=== PATIENT | female | born 1975 | race Caucasian/White ===

== ENCOUNTER → 2017-10-09 | Outpatient (CLI) | payer SELFPAY ==
[2017-10-09 13:02] LABS: Basophils % (A) 1 %; Eosinophils # (A) 0.1 k/uL (0-0.7); Eosinophils % (A) 2 %; HCT 43.9 % (34.0-46.0); HGB 14.3 gm/dL (11.4-16.0); Lymphocytes % (A) 27 %; MCH 30.5 pg (25.0-35.0); MCHC 32.7 g/dL (31.0-37.0); MCV 93.2 fL (80.0-100.0); Mean Platelet Volume 7.3; Monocytes # (A) 0.4 k/uL (0-1.0); Monocytes % (A) 5 %; Neutrophils # (A) 4.7 k/uL (1.3-7.7); Neutrophils % (A) 64 %; Platelet Count 348 k/uL (150-450); RBC 4.71 m/uL (3.80-5.40); RDW 14.1 % (11.5-15.5); WBC 7.3 k/uL (3.8-10.6)
== END | disposition home or self-care (01) ==
LOC: LABPAT 12:40
PROVIDERS: ATTEND Orthopaedic Surgery
DX: Z01.812 Encounter for preprocedural laboratory examination (principal); M75.41 Impingement syndrome of right shoulder
CPT/HCPCS: 36415; 85025

== ENCOUNTER → 2017-10-16 | Day surgery (SDC) | payer OTHER ==
[2017-10-07 14:45] VITALS: BMI 27.3
--- NOTE | 2017-10-15 14:49 | HP ---
HISTORY AND PHYSICAL DATE OF SERVICE: 10/16/2017 Adelia Cedillo is a 42-year-old patient seen with progressive right shoulder pain. Treatment options were discussed. She elected to proceed with right shoulder arthroscopy. Consent was obtained. PAST MEDICAL HISTORY: Depression. PAST SURGICAL HISTORY: Left knee arthroscopy, left shoulder arthroscopy, tubal ligation. DAILY MEDICATIONS: Ibuprofen. ALLERGIES: None reported. SOCIAL HISTORY: Patient denies current tobacco use. PHYSICAL EVALUATION RIGHT SHOULDER: Flexion 100 degrees, abduction is 90 degrees, external rotation is 35 degrees with some pain and weakness. Tenderness along the anterior lateral acromion and rotator cuff insertion site. Impingement sign positive at 90 degrees. Drop-arm sign is positive. Distal neurovascular exam is intact. X-RAYS OF THE RIGHT SHOULDER: Revealed a type 2 anterior acromion. MRI right shoulder revealed impingement with rotator cuff tear. IMPRESSION: Right shoulder impingement with rotator cuff tear. PLAN: Right shoulder arthroscopy with subacromial decompression, probable arthroscopic rotator cuff repair and debridement. MMODL / IJN: [id number] /
[~2017-10-16] MED LIST: DEXAMETHASONE SOD PHOSPHATE 10 MG/ML 1 ML VIAL IV ONE; FAMOTIDINE 20 MG/2 ML VIAL IV PRN; HYDROmorphone 0.5 MG/0.5 ML SYRINGE IVP PRN; KETAMINE 10 MG/ML 20 ML VIAL ONE; LACTATED RINGERS 1,000 ML IV SCH; LIDOCAINE 1% 20 ML VIAL (10MG/ML) FOR IV START INTRADERMA ONE; LIDOCAINE 1% 20 ML VIAL (10MG/ML) FOR IV START INTRADERMA PRN; LIDOCAINE 1% INJ 10MG/ML (20 ML MDV) ONE; LIDOCAINE 2%-EPI 1:100,000 20 ML VIAL ONE; MIDAZOLAM 2 MG/2 ML VIAL IV PRN; ONDANSETRON 4 MG/2 ML VIAL IVP ONE; PROPOFOL 10 MG/ML 20 ML VIAL IV ONE; ROCURONIUM BROMIDE 10 MG/ML 10 ML VIAL IV ONE; ROPIVACAINE 5 MG/ML 30 ML VIAL ONE; SCOPOLAMINE 1.5MG/72HR PATCH TRANSDERM ONE; SUCCINYLCHOLINE CHLORIDE 100 MG/5 ML SYR IV ONE; ceFAZolin IN SWFI 2 GM/20 ML SYRINGE IVP ONE; fentaNYL (PF) 50 MCG/ML 2 ML AMP IVP ONE; fentaNYL (PF) 50 MCG/ML 2 ML AMP ONE
--- NOTE | 2017-10-16 08:55 | P.ONQ ---
Anesthesiology Proc Note - PNB - Peripheral Nerve Block Performed Right Interscalene Single Time Out Performed: Yes (8:43) Procedure Start Time: 08:44 Procedure Stop Time: :55 Indication: Acute Post-Operative Pain, Requested by physician Sedation Type: Sedate with meaningful contact maintained Preparation: Sterile Prep Position: Supine Catheter: None Needle Types: Facet Needle Size: 50mm (2") Needle Gauge: 20 Technique: Ultrasound Injectate: 0.5% Ropivacaine (see comment for volume) (30 mls) Blood Aspirated: No Pain Paresthesia on Injection Noted: No Resistance on Injection: Normal Events: Uneventful and Well Tolerated
[2017-10-16 10:58] VITALS: TEMP 97.8
--- NOTE | 2017-10-16 11:02 | P.OP ---
Date of Procedure: 10/16/17 Preoperative Diagnosis: Right shoulder impingement Postoperative Diagnosis: 1. Right shoulder rotator cuff tear 2. Right shoulder impingement 3. Right shoulder superficial labral tear Procedure(s) Performed: 1. Right shoulder arthroscopic rotator cuff repair 2. Right shoulder arthroscopic subacromial decompression 3. Right shoulder arthroscopic debridement labral tear Implants: 2-5.5 peek anchors Anesthesia: GETA, regional (Interscalene block) Surgeon: Dwain Samuel Research Technician #1: Ray Cool Estimated Blood Loss (ml): 15 Pathology: none sent Condition: stable Disposition: PACU Indications for Procedure: 42-year-old patient seen with progressive right shoulder pain. After having treatment options discussed, she elected to proceed with arthroscopy. Operative Findings: See description of procedure Description of Procedure: Patient underwent a shoulder block by department of anesthesia. The patient was then taken to the operative suite. The patient underwent a general anesthetic by the department of anesthesia. The patient was placed into a lateral position and secured. There was appropriate padding of the bony prominence. Right shoulder was then prepped and draped in normal sterile orthopedic fashion. We placed the extremity in 10 pounds of longitudinal traction. A posterior incision was now made for a posterior working portal site. The trocar and cannula were inserted into the glenohumeral joint. Arthroscopy was initiated. Spinal needle was now inserted anteriorly, to ascertain the anterior working portal site. An incision was now made in that area, a trocar was inserted followed by a probe. There was superficial tearing of the anterior labrum. The superior posterior and inferior labrum were intact. There was some grade 1 chondromalacia changes central portion glenoid. Biceps is unremarkable. I did seen obvious through and through rotator cuff tear noted at the midportion distal supraspinatus. I debrided that labral tear down to stable tissue. The residual labrum was probed and found to be stable. Instruments now removed from glenohumeral joint. Utilizing the posterior working portal site, the trocar and cannula were inserted into the subacromial space. Arthroscopy initiated. I made an incision 2 fingerbreadths lateral to the acromion. I introduced my trocar followed by my ArthroCare ablator. I now began ablating thick subacromial bursal tissue, which exposed the undersurface of the anterior acromion. This was diminished subacromial space. There was a very prominent anterior acromion. A motorized bur was introduced and a subacromial decompression was performed. I also excised some osteophytes off the inferior aspect of the distal clavicle. The AC joint was visualized and noted to be mildly arthritic. I turned my attention to the rotator cuff tendon tear. I debrided the margins down to stable tissue. The tear was about 1.5 cm freely mobile over the footprint. I abraded the footprint with a motorized bur. I passed 4 everted mattress sutures. No sutures were crisscrossed and a pull the tendon over the footprint inserting 2 anchors laterally compressing the tendon along the footprint very nicely. He residual suture limbs were clipped. I injected 1 mL of UCT intra-articular. Instruments now removed from the portal sites. All portal sites were approximated with nylon suture. Sterile dressings were applied followed by a shoulder immobilizer. Power SANDOVAL assisted with the procedure. The patient was awakened, transferred to a bed, and taken to recovery in stable condition.
[2017-10-16 12:05] VITALS: PULSE 67; RESP 18
[2017-10-16 12:33] VITALS: BP 117/65
== END | disposition home or self-care (01) ==
LOC: OR 07:52
PROVIDERS: ATTEND Orthopaedic Surgery
DX: M75.101 Unspecified rotator cuff tear or rupture of right shoulder, not specified as traumatic (principal); M75.41 Impingement syndrome of right shoulder; S43.401A Unspecified sprain of right shoulder joint, initial encounter; X58.XXXA Exposure to other specified factors, initial encounter; M94.211 Chondromalacia, right shoulder; M19.011 Primary osteoarthritis, right shoulder; M25.711 Osteophyte, right shoulder; F32.9 Major depressive disorder, single episode, unspecified; Z98.51 Tubal ligation status; Z79.1 Long term (current) use of non-steroidal anti-inflammatories (NSAID); Z79.891 Long term (current) use of opiate analgesic
CPT/HCPCS: 64415; 81025; 29827; 29826; C1713; C1765; J2250; J1100; J0690; J2405; J2001; J3010; J2795; J0330; J2704

== ENCOUNTER 2018-02-09 08:21 | Day surgery (SDC) | payer OTHER ==
[2018-02-04 13:56] VITALS: BMI 28.8
--- NOTE | 2018-02-08 09:29 | HP ---
HISTORY AND PHYSICAL DATE OF SERVICE: Surgery scheduled for 02/09/2018 HISTORY OF PRESENT ILLNESS: Adelia Cedillo is a 42-year-old patient seen with right shoulder stiffness/adhesive capsulitis after previously having undergone arthroscopic rotator cuff repair. We discussed options. She elected to proceed with manipulation under anesthesia right shoulder with steroid injection. Consent regarding procedure was obtained. PAST MEDICAL HISTORY: Depression. PAST SURGICAL HISTORY: Right shoulder arthroscopic rotator cuff repair, left knee arthroscopy, tubal ligation. DAILY MEDICATIONS: Ibuprofen. ALLERGIES: None reported. SOCIAL HISTORY: Patient denies tobacco use. PHYSICAL EXAMINATION: Physical evaluation right shoulder arthroscopic portal sites appear well healed. Flexion 100 degrees, abduction 90 degrees, external rotation 20 degrees. Distal neurovascular exam is intact. RADIOGRAPHS: Radiographs of the right shoulder revealed a conversion to a flat anterior acromion. IMPRESSION: 1. Right shoulder adhesive capsulitis. 2. History of right shoulder arthroscopic rotator cuff repair. PLAN: Right shoulder manipulation under anesthesia with steroid injection. Surgery scheduled for 02/09/2018. MMODL / IJN: [id number] /
[~2018-02-09 08:21] MED LIST changes: -FAMOTIDINE 20 MG/2 ML VIAL IV PRN; -HYDROmorphone 0.5 MG/0.5 ML SYRINGE IVP PRN; -KETAMINE 10 MG/ML 20 ML VIAL ONE; -LIDOCAINE 1% 20 ML VIAL (10MG/ML) FOR IV START INTRADERMA ONE; -LIDOCAINE 1% 20 ML VIAL (10MG/ML) FOR IV START INTRADERMA PRN; -LIDOCAINE 1% INJ 10MG/ML (20 ML MDV) ONE; -LIDOCAINE 2%-EPI 1:100,000 20 ML VIAL ONE; -PROPOFOL 10 MG/ML 20 ML VIAL IV ONE; -ROCURONIUM BROMIDE 10 MG/ML 10 ML VIAL IV ONE; -ROPIVACAINE 5 MG/ML 30 ML VIAL ONE; -SUCCINYLCHOLINE CHLORIDE 100 MG/5 ML SYR IV ONE; +fentaNYL (PF) 50 MCG/ML 2 ML AMP IV PRN; -fentaNYL (PF) 50 MCG/ML 2 ML AMP IVP ONE; -fentaNYL (PF) 50 MCG/ML 2 ML AMP ONE
[2018-02-09] MEDS ORDERED: LIDOCAINE 1% 20 ML VIAL (10MG/ML) FOR IV START INTRADERMA ONE (09:00)
[2018-02-09 09:33] VITALS: TEMP 98
[2018-02-09] MEDS ORDERED: PROPOFOL 10 MG/ML 20 ML VIAL IV ONE (09:51)
[2018-02-09] MEDS ORDERED: KETOROLAC 30 MG/ML 1 ML VIAL ONE (09:51)
[2018-02-09] MEDS ORDERED: fentaNYL (PF) 50 MCG/ML 2 ML AMP ONE (09:51)
[2018-02-09] MEDS ORDERED: methylPREDNISolone ACETATE 80 MG/ML 1 ML VIAL INTRAARTIC ONE (10:08)
[2018-02-09] MEDS ORDERED: BUPIVACAINE (PF) 0.25% 30 ML VIAL INTRAARTIC ONE (10:08)
--- NOTE | 2018-02-09 10:12 | P.OP ---
Date of Procedure: 02/09/18 Preoperative Diagnosis: Right shoulder adhesive capsulitis Postoperative Diagnosis: Right shoulder adhesive capsulitis Procedure(s) Performed: Right shoulder manipulation under anesthesia with steroid injection Anesthesia: MAC Surgeon: Dwain Samuel Estimated Blood Loss (ml): 0 Pathology: none sent Condition: stable Disposition: PACU Indications for Procedure: 42-year-old patient seen with right shoulder adhesive capsulitis after previously having undergone arthroscopy. After treatment options were discussed , she elected to proceed with manipulation under anesthesia with steroid injection. Operative Findings: See description of procedure Description of Procedure: Patient was taken to a monitored anesthesia area. The patient underwent IV sedation by the department of anesthesia. Once sufficient anesthesia was noted a manipulation of the right shoulder was performed achieving full range of motion. The anterior aspect of her shoulder was prepped and draped in the normal sterile orthopedic fashion. I injected 1 mL Depo-Medrol and 3 mL quarter percent plain Marcaine into the right shoulder glenohumeral joint under sterile technique. A sterile Band-Aid was applied. The shoulder was taken through range of motion again. The patient Ez procedure well.
[2018-02-09] MEDS: MORPHINE SULFATE 4MG/4ML SYRG IV ONE ×4 (10:22→10:41)
[2018-02-09] MEDS ORDERED: HYDROcodone/APAP 5-325MG 1 EACH TAB PO ONE (11:20)
[2018-02-09 11:41] VITALS: RESP 18
[2018-02-09 12:32] VITALS: BP 95/63; PULSE 60
== END 2018-02-09 12:50 | disposition home or self-care (01) ==
LOC: OR 08:21
PROVIDERS: ATTEND Orthopaedic Surgery
DX: M75.01 Adhesive capsulitis of right shoulder (principal); Z98.890 Other specified postprocedural states; G43.109 Migraine with aura, not intractable, without status migrainosus; Z79.1 Long term (current) use of non-steroidal anti-inflammatories (NSAID); Z98.51 Tubal ligation status
CPT/HCPCS: 23700; 81025; J1040; J1100; J2405; J3010; J1885; J2704; J2270

== ENCOUNTER → 2018-12-28 | Outpatient (CLI) | payer SELFPAY ==
--- NOTE | 2018-12-28 15:59 | MR ---
EXAMINATION TYPE: MR shoulder RT wo con DATE OF EXAM: 12/28/2018 COMPARISON: 09/11/2017 and radiographs 07/24/2018 HISTORY: 43-year-old female with right shoulder pain TECHNIQUE: Multiplanar, multisequence imaging of the right shoulder is performed without contrast. FINDINGS: Limited assessment of the intracapsular portion of the long head biceps tendon. The extracapsular por tion appears normal and appropriately situated along the bicipital groove. The subscapularis tendon is intact. Interval supraspinatus tendon repair with 2 suture anchors lateral to the greater tuberosity. The sup raspinatus tendon is heterogeneous likely relating to postsurgical change. There is a small 3 x 3 mm fenestration involving the mid supraspinatus tendon located 1.9 cm proximal to the footprint that cou ld also be postsurgical. No other high-grade partial or full-thickness tear of either supraspinatus or infraspinatus tendons i s identified. No atrophy of the rotator cuff musculature. Moderate degenerative joint space narrowing with marginal spurring and capsular hypertrophy at the AC joint. There is subchondral marrow and mild periarticular edema. No significant mass effect onto the underlying cuff. No effusion within the subacromial/subdeltoid bursa. No significant the glenohumeral joint effusion. The glenohumeral joint appears grossly intact. No discrete labral tear given nonarthrographic technique and no para labral cyst. No Hill-Sachs deformity or os acromiale. No suspicious bone marrow replacement. IMPRESSION: 1. Interval supraspinatus tendon repair. Heterogeneous signal likely postsurgical change. In addition , there is a tiny 3 x 3 mm full-thickness defect of the mid supraspinatus tendon located 1.9 cm proxi mal to the footprint, probable postoperative fenestration rather than tear given the morphology. Othe rwise, no high-grade partial or full-thickness re-tear is identified. 2. Moderate AC joint osteoarthrosis with mild edema which could represent some acute exacerbation of the OA.
== END | disposition home or self-care (01) ==
LOC: RADMRIMAIN 07:37
PROVIDERS: ATTEND Orthopaedic Surgery
DX: M19.011 Primary osteoarthritis, right shoulder (principal)

== ENCOUNTER → 2019-02-19 | Outpatient (CLI) | payer OTHER ==
[2019-02-19 08:55] LABS: Basophils % (A) 1 %; Eosinophils # (A) 0.1 k/uL (0-0.7); Eosinophils % (A) 1 %; HGB 14.2 gm/dL (11.4-16.0); Lymphocytes # (A) 2.2 k/uL (1.0-4.8); Lymphocytes % (A) 35 %; MCH 29.9 pg (25.0-35.0); MCHC 32.9 g/dL (31.0-37.0); MCV 90.7 fL (80.0-100.0); Mean Platelet Volume 6.4; Monocytes # (A) 0.3 k/uL (0-1.0); Monocytes % (A) 6 %; Neutrophils # (A) 3.4 k/uL (1.3-7.7); Neutrophils % (A) 56 %; Platelet Count 424 k/uL (150-450); RBC 4.74 m/uL (3.80-5.40); RDW 12.8 % (11.5-15.5); WBC 6.2 k/uL (3.8-10.6)
[2019-02-19 16:26] LABS: Anion Gap 10.5 mmol/L (4.00-12.00); Carbon Dioxide 23.5 mmol/L (21.6-31.8); Potassium 4.4 mmol/L (3.5-5.5)
== END | disposition home or self-care (01) ==
LOC: LABWHC1 08:19
PROVIDERS: ATTEND Orthopaedic Surgery
DX: Z01.812 Encounter for preprocedural laboratory examination (principal); M75.41 Impingement syndrome of right shoulder
CPT/HCPCS: 36415; 80051; 85025

== ENCOUNTER 2019-02-25 09:02 | Day surgery (SDC) | payer OTHER ==
[2019-02-23 09:39] VITALS: BMI 26.9
--- NOTE | 2019-02-24 16:11 | HP ---
HISTORY AND PHYSICAL DATE OF SURGERY: 02/25/2019 Adelia Cedillo is a 43-year-old patient seen with progressive right shoulder pain. We discussed treatment options. She elected to proceed with right shoulder arthroscopy. Consent regarding procedure was obtained. PAST MEDICAL HISTORY: Depression. PAST SURGICAL HISTORY: 1. Tubal ligation. 2. Left knee arthroscopy. 3. Left shoulder arthroscopy. DAILY MEDICATIONS: Topamax. ALLERGIES: NONE. SOCIAL HISTORY: She denies current tobacco use. PHYSICAL EVALUATION OF RIGHT SHOULDER: Flexion is 140 degrees. Abduction is 90 degrees. External rotation is 40 degrees with pain and weakness. Tenderness along the anterolateral acromion and rotator cuff insertion site. Impingement positive 90 degrees. Distal neurovascular exam intact. RIGHT SHOULDER RADIOGRAPHS: Right shoulder radiographs revealed acromioclavicular joint osteoarthritis and a type 2 anterior acromion. Right shoulder MRI revealed acromioclavicular joint osteoarthritis, evidence for a full-thickness defect, mid supraspinatus tendon. IMPRESSION: 1. Right shoulder impingement with rotator cuff tear. 2. Right shoulder acromioclavicular joint osteoarthritis. PLAN: Right shoulder arthroscopy, subacromial decompression, possible arthroscopic rotator cuff repair, possible Nicoel procedure and debridement. MMODL / IJN: [id number] /
[~2019-02-25 09:02] MED LIST changes: +HYDROmorphone 0.5 MG/0.5 ML SYRINGE IVP PRN; +LIDOCAINE 1% 20 ML VIAL (10MG/ML) FOR IV START INTRADERMA PRN; -fentaNYL (PF) 50 MCG/ML 2 ML AMP IV PRN
[2019-02-25] MEDS ORDERED: MIDAZOLAM (PF) 2 MG/2 ML VIAL IV ONE (10:20)
--- NOTE | 2019-02-25 10:44 | P.ANPRN ---
Procedure Note - Anesthesia - Nerve Block Performed Right Interscalene Single Time Out Performed: Yes Date of Procedure: 02/25/19 Procedure Start Time: Procedure Stop Time: Location of Patient Procedure: PreOp Indication: Acute Post-Operative Pain, Requested by physician Sedation Type: Sedate with meaningful contact maintained Preparation: Sterile Prep Position: Supine Catheter: None Needle Types: On-Q Needle Gauge: 20 Technique: Ultrasound Injectate: 0.5% Ropivacaine (see comment for volume) Blood Aspirated: No Pain Paresthesia on Injection Noted: No Resistance on Injection: Normal Events: Uneventful and Well Tolerated (20 ml total volume)
[2019-02-25] MEDS ORDERED: LIDOCAINE 2%-EPI 1:100,000 20 ML VIAL ONE (10:51)
[2019-02-25] MEDS ORDERED: fentaNYL (PF) 50 MCG/ML 2 ML AMP ONE (10:51)
[2019-02-25] MEDS ORDERED: LIDOCAINE 1% INJ 10MG/ML (20 ML MDV) ONE (10:51)
[2019-02-25] MEDS ORDERED: NEOSTIGMINE 1 MG/ML 10 ML VIAL ONE (10:51)
[2019-02-25] MEDS ORDERED: GLYCOPYRROLATE 0.2 MG/ML 2 ML VIAL ONE (10:51)
[2019-02-25] MEDS ORDERED: PROPOFOL 10 MG/ML 20 ML VIAL IV ONE (10:51)
[2019-02-25] MEDS ORDERED: ROCURONIUM BROMIDE 10 MG/ML 10 ML VIAL IV ONE (10:51)
[2019-02-25] MEDS ORDERED: MIDAZOLAM 2 MG/2 ML VIAL ONE (10:51)
[2019-02-25] MEDS ORDERED: ROPIVACAINE 5 MG/ML 30 ML VIAL ONE (10:51)
--- NOTE | 2019-02-25 12:23 | P.OP ---
Date of Procedure: 02/25/19 Preoperative Diagnosis: Right shoulder rotator cuff tear Postoperative Diagnosis: 1. Right shoulder rotator cuff tear 2. Right shoulder partial long head biceps tendon tear Procedure(s) Performed: 1. Right shoulder arthroscopic rotator cuff repair 2. Right shoulder arthroscopic biceps tenotomy Implants: 1Arthrex 4.75 swivel lock anchor Anesthesia: GETA, regional (Interscalene Block) Surgeon: Dwain Samuel Harness Placer #1: Ray Cool Estimated Blood Loss (ml): 7 Pathology: none sent Condition: stable Disposition: PACU Indications for Procedure: 43-year-old patient seen with right shoulder pain failing conservative treatment measures. After having treatment options discussed, she elected to proceed with arthroscopy. Operative Findings: See description of procedure Description of Procedure: Patient underwent an interscalene block by department of anesthesia for postoperative pain management. The patient was then taken to the operative suite. The patient underwent a general anesthetic by the department of anesthesia. The patient was placed into a lateral position and secured. There was appropriate padding of the bony prominence. Right shoulder was then prepped and draped in normal sterile orthopedic fashion. We placed the extremity in 10 pounds of longitudinal traction. A posterior incision was now made for a posterior working portal site. The trocar and cannula were inserted into the glenohumeral joint. Arthroscopy was initiated. Spinal needle was now inserted anteriorly, to ascertain the anterior working portal site. An incision was now made in that area, a trocar was inserted followed by a probe. There was partial tearing long head biceps tendon. There was evidence for a rotator cuff tear visualized from glenohumeral side. The labrum was stable. The humeral head and glenoid fossa or stable. I performed an arthroscopic biceps tenotomy. Instruments removed from glenohumeral joint. Utilizing the posterior working portal site, the trocar and cannula were inserted into the subacromial space. Arthroscopy initiated. I made an incision 2 fingerbreadths lateral to the acromion. I introduced my trocar followed by my ArthroCare ablator. I now began ablating thick subacromial bursal tissue, which exposed the undersurface of the anterior acromion. There appeared to be a flat anterior acromion with good subacromial space present. I explored the acromioclavicular joint which had some mild arthritis but nothing significant. I turned my attention to the rotator cuff. I visualized the previous repair. At the anterior aspect it appeared be some tearing of the tendon. I debrided the margins getting down to stable tendon tissue the defect measured 1 cm. I passed 2 everted mattress sutures through good bites rotator cuff tendon with the assistance of Power SANDOVAL. I abraded the footprint with a motorized bur. I made a punch hole for insertion of her anchor. A 4.75 Arthrex anchor was chosen and all suture limbs were placed through the anchor. The eyelet was now placed into our pre-punch hole. I held the eyelet in position on Power SANDOVAL tension the sutures and introduced the anchors with good bite and purchase noted. We had nice repair of the rotator cuff tendon tear. All residual suture limbs were now clipped. We had good compression of the tendon along the entire footprint. I injected 1 mL Renue intra-articular. Instruments now removed from the portal sites. All portal sites were approximated with nylon suture. Sterile dressings were applied followed by a shoulder sling. Ray SANDOVAL assisted in this complex case. The patient was awakened, transferred to a bed, and taken to recovery in stable condition.
[2019-02-25 12:27] VITALS: TEMP 97.5
[2019-02-25 13:34] VITALS: RESP 18
[2019-02-25 13:35] VITALS: BP 107/73; PULSE 61
== END 2019-02-25 13:52 | disposition home or self-care (01) ==
LOC: OR 09:02
PROVIDERS: ATTEND Orthopaedic Surgery
DX: M75.121 Complete rotator cuff tear or rupture of right shoulder, not specified as traumatic (principal); S46.111A Strain of muscle, fascia and tendon of long head of biceps, right arm, initial encounter; X58.XXXA Exposure to other specified factors, initial encounter; M19.011 Primary osteoarthritis, right shoulder; M25.811 Other specified joint disorders, right shoulder; M75.01 Adhesive capsulitis of right shoulder; E78.5 Hyperlipidemia, unspecified; G43.909 Migraine, unspecified, not intractable, without status migrainosus; F32.9 Major depressive disorder, single episode, unspecified; Z98.51 Tubal ligation status; Z97.2 Presence of dental prosthetic device (complete) (partial); Z90.49 Acquired absence of other specified parts of digestive tract; Z79.899 Other long term (current) drug therapy
CPT/HCPCS: 29827; 64415; 81025; C1713; C1765; J2250 ×2; J1100; J2710; J2405; J2001; J3010; J2795; J2704; J0690

== ENCOUNTER → 2019-08-13 | Outpatient (CLI) | payer OTHER ==
--- NOTE | 2019-08-15 11:38 | MR ---
EXAMINATION TYPE: MR cervical spine wo con DATE OF EXAM: 08/13/2019 COMPARISON: None HISTORY: Neck pain TECHNIQUE: Multiplanar, multisequence images of the cervical spine were acquired. C2-C3: No evidence for degenerative disc disease. No disc bulge/herniation or protrusion. No Canal stenosis. Foramina are patent bilaterally. C3-C4: No evidence for degenerative disc disease. No disc bulge/herniation or protrusion. No Canal stenosis. Foramina are patent bilaterally. C4-C5: There is findings suggestive of a subtle annular tear and mild central disc bulging but no foc al herniation or foraminal encroachment. No spinal cord contact. Mild hypertrophy of the facet joint on the left. C5-C6: Annular tear and focal broad-based small central left paracentral disc herniation. Compression of thecal sac but no spinal cord contact. Neural foramina patent. C6-C7: No evidence for degenerative disc disease. No disc bulge/herniation or protrusion. No Canal stenosis. Foramina are patent bilaterally. C7-T1: No evidence for degenerative disc disease. No disc bulge/herniation or protrusion. No Canal stenosis. Foramina are patent bilaterally. Cervical segments are intact. There is normal alignment. Cervical spinal cord is of normal signal. Craniovertebral junction relationships are within normal limits. IMPRESSION: 1. Annular tear and focal small broad-based disc herniation centrally and paracentrally to left C5-C6 with mild thecal sac compression but no spinal cord contact or foraminal encroachment. 2. Annular tear and mild broad-based central disc bulging but no focal herniation C4-C5. No foraminal encroachment.
== END | disposition home or self-care (01) ==
LOC: RADMRIMAIN 19:27
PROVIDERS: ATTEND Family Medicine
DX: M50.122 Cervical disc disorder at C5-C6 level with radiculopathy (principal); M53.82 Other specified dorsopathies, cervical region
CPT/HCPCS: 72141

== ENCOUNTER 2019-11-29 12:29 | Day surgery (SDC) | payer OTHER ==
[2019-11-25 11:21] VITALS: BMI 27.1
[~2019-11-29 12:29] MED LIST changes: -DEXAMETHASONE SOD PHOSPHATE 10 MG/ML 1 ML VIAL IV ONE; -HYDROmorphone 0.5 MG/0.5 ML SYRINGE IVP PRN; +LIDOCAINE 1% (10MG/ML) FOR IV START INTRADERMA PRN; -LIDOCAINE 1% 20 ML VIAL (10MG/ML) FOR IV START INTRADERMA PRN; -MIDAZOLAM 2 MG/2 ML VIAL IV PRN; -ONDANSETRON 4 MG/2 ML VIAL IVP ONE; -SCOPOLAMINE 1.5MG/72HR PATCH TRANSDERM ONE; -ceFAZolin IN SWFI 2 GM/20 ML SYRINGE IVP ONE
[2019-11-29 12:51] VITALS: RESP 16; TEMP 98.2
[2019-11-29] MEDS ORDERED: PROPOFOL 10 MG/ML 20 ML VIAL IV ONE (13:24)
--- NOTE | 2019-11-29 14:00 | P.PCN ---
Date of Procedure: 11/29/19 Description of Procedure: Brief history: Patient is a pleasant scheduled for an elective upper endoscopy as well as colonoscopy as a part of evaluation of epigastric abdominal pain and change in bowel habits. The patient has long-standing history of epigastric dull pain which has been worse in the past few months. She also reports alternating diarrhea and constipation. Procedure performed: Esophagogastroduodenoscopy with biopsy Colonoscopy with biopsy Estimated blood loss: Minimal. Preoperative diagnosis: Epigastric abdominal pain, altered bowel Anesthesia: MAC Procedure: After informed consent was obtained from the patient was brought into the endoscopy unit and IV sedation was administered by anesthesia under continuous monitoring. Initially upper endoscopy was done. The Olympus GF 190 video endoscope was inserted into the mouth and esophagus intubated without any difficulty and was gradually advanced into the stomach and duodenum and carefully examined. The bulb and second part of the duodenum appeared normal, with biopsies taken. The scope was then withdrawn into the stomach adequately insufflated with air and upon careful examination the antrum and body, cardia and fundus appeared normal, however there was some mild punctate erythema and superficial erosions in the antrum and body suggestive of moderate gastritis with biopsies of antrum and body taken. The scope was then withdrawn into the esophagus. The GE junction was located at 36 cm to the incisors. It appeared regular with no erythema erosions or ulcerations. Rest of the esophagus appeared normal. Patient tolerated the procedure well. At this time the patient continued to remain sedation. Initial digital rectal examination was normal. Olympus CF 190 video colonoscope was then inserted into the rectum and gradually advanced to the cecum without any difficulty. Careful examination was performed as the scope was gradually being withdrawn. The prep was poor with a large amount of solid stool throughout the entire colon prohibiting complete visualization of the mucosa. The cecum, ascending colon, transverse colon, descending colon, sigmoid colon and rectum which was able to be visualized and appeared normal, however complete visualization of the mucosa was inhibited by poor prep. Biopsies of the right and left colon taken in the setting of altered bowel function. Retroflexion was performed in the rectum and no lesions were noted. Patient tolerated the procedure well. Impression: 1. Moderate gastritis antrum and body, biopsied. Duodenal biopsies. 2. Poor prep prohibiting complete visualization of the mucosa. Random biopsies of the right and left colon taken the setting of altered bowel function. Recommendations: Findings of this examination were discussed with the patient as well as her son. Timiay to resume diet. Okay to resume medications. Would recommend patient avoid NSAID medications. Await results from biopsies. Would recommend repeat colonoscopy in 5 years for family history of colon cancer.
[2019-11-29 14:51] VITALS: BP 98/62; PULSE 58
--- NOTE | 2019-11-29 15:16 | XR ---
EXAMINATION TYPE: XR abdomen 2V DATE OF EXAM: 11/29/2019 3:11 PM CLINICAL HISTORY: Abdominal pain after colonoscopy. TECHNIQUE: Supine and upright images of the abdomen were obtained. COMPARISON: None. FINDINGS: No pneumoperitoneum is seen. Cholecystectomy clips are present. Gas is present throughout t he distended but nondilated colon. Osseous structures appear intact. No abnormal calcifications in th e abdomen. Lung bases are well aerated. IMPRESSION: Postprocedural air throughout the colon. No pneumoperitoneum seen.
== END 2019-11-29 15:39 | disposition home or self-care (01) ==
LOC: ORWHC2ENDO 12:29
PROVIDERS: ATTEND Internal Medicine
DX: K29.50 Unspecified chronic gastritis without bleeding (principal); R19.4 Change in bowel habit; K21.9 Gastro-esophageal reflux disease without esophagitis; Z79.899 Other long term (current) drug therapy; Z98.51 Tubal ligation status; Z90.49 Acquired absence of other specified parts of digestive tract; Z97.2 Presence of dental prosthetic device (complete) (partial); Z98.890 Other specified postprocedural states; Z88.5 Allergy status to narcotic agent
CPT/HCPCS: 81025; 88305; 74019; 45380; 43239; J2704

== ENCOUNTER 2022-07-05 12:30 | Observation (INO) | payer OTHER ==
--- NOTE | 2022-07-05 13:34 | XR ---
EXAMINATION TYPE: XR chest 2V DATE OF EXAM: 07/05/2022 COMPARISON: None INDICATION: Short of breath chest tightness TECHNIQUE: Frontal and lateral views of the chest are obtained. FINDINGS: The heart size is normal. The pulmonary vasculature is normal. The lungs are clear. IMPRESSION: 1. No acute pulmonary process.
[2022-07-05] MEDS ORDERED: ALBUTEROL HFA INHALER INHALATION STA (15:19)
--- NOTE | 2022-07-05 15:22 | ED ---
General Adult HPI - General Chief complaint: Shortness of Breath Stated complaint: SOB Time Seen by Provider: 07/05/22 14:34 Source: patient, RN notes reviewed Mode of arrival: ambulatory Limitations: no limitations - History of Present Illness Initial comments: Patient is a pleasant 47-year-old female presenting to the emergency department with difficulty in breathing. Symptoms have been present for over a week. Symptoms are present with exertion. Patient also has mild associated chest tightness. Symptoms are minimal at rest. No nausea vomiting. No diaphoresis. No cough or fever. No leg pain or swelling. Patient did have a covid 19 infec tion a couple months ago. - Related Data Home Medications Medication Instructions Recorded Confirmed Omeprazole [PriLOSEC] 20 mg PO DAILY 11/25/19 07/05/22 Butalb/APAP/Caff 50-325-40Mg 1 tab PO Q8H PRN 07/05/22 07/05/22 [Fioricet 50-325-40] methylPREDNISolone Dose Pack See Taper PO DIRECTED 07/05/22 07/05/22 [Medrol Dose Pack] traMADol HCL 50 mg PO BID PRN 07/05/22 07/05/22 Allergies Allergy/AdvReac Type Severity Reaction Status Date / Time No Known Allergies Allergy Unverified 07/05/22 15:18 Review of Systems ROS Statement: Those systems with pertinent positive or pertinent negative responses have been documented in the HPI. ROS Other: All systems not noted in ROS Statement are negative. Constitutional: Denies: fever Eyes: Denies: eye pain ENT: Denies: ear pain, congestion Respiratory: Reports: as per HPI Cardiovascular: Reports: as per HPI Endocrine: Reports: fatigue Gastrointestinal: Denies: abdominal pain Genitourinary: Denies: dysuria Musculoskeletal: Denies: back pain Skin: Denies: rash Neurological: Denies: weakness Past Medical History Past Medical History: Hyperlipidemia Additional Past Medical History / Comment(s): Hx MIGRAINES, hx elevated liver enzymes, marcin shoulder prob. Upper abd pain, nausea for long time, 15 years estimated. NT lt leg w/ pain. History of Any Multi-Drug Resistant Organisms: None Reported Past Surgical History: Cholecystectomy, Orthopedic Surgery, Tubal Ligation Additional Past Surgical History / Comment(s): Marcin SHOULDER ROTATOR CUFF, LEFT KNEE arthroscopy, Past Anesthesia/Blood Transfusion Reactions: Motion Sickness Past Psychological History: Anxiety, Depression Past Alcohol Use History: Rare Past Drug Use History: None Reported - Past Family History Mother Family Medical History: Cancer Additional Family Medical History / Comment(s): RECTAL CANCER General Exam Limitations: no limitations General appearance: alert, in no apparent distress Head exam: Present: normocephalic Eye exam: Present: normal appearance Neck exam: Present: normal inspection Respiratory exam: Present: normal lung sounds bilaterally. Absent: respiratory distress Cardiovascular Exam: Present: regular rate, normal rhythm GI/Abdominal exam: Present: soft. Absent: tenderness Extremities exam: Present: normal inspection. Absent: pedal edema, calf tenderness Back exam: Present: normal inspection Neurological exam: Present: alert Psychiatric exam: Present: normal affect, normal mood Skin exam: Present: normal color Course Vital Signs 07/05/22 07/05/22 12:59 16:39 Temperature 98.2 F Pulse Rate 53 L Respiratory 18 16 Rate Blood Pressure 127/83 O2 Sat by Pulse 100 Oximetry EKG Findings - EKG Comments: EKG Findings:: Sinus rhythm rate 71. IA 136. QRS 106. QT 378. QTC 400. Normal axis. Normal QRS. v3 V4 T wave inversion. Medical Decision Making - Medical Decision Making Patient reevaluated and updated. Patient does have exertional dyspnea and chest tightness with T-wave inversion V3 V4. Case was discussed with Dr. Ferrara, who will admit covering hospital observation call. - Lab Data Result diagrams: 07/05/22 16:15 07/05/22 16:15 Lab Results 07/05/22 07/05/22 07/05/22 Range/Units 16:15 16:15 16:15 WBC 11.2 H (3.8-10.6) k/uL RBC 4.74 (3.80-5.40) m/uL Hgb 15.3 (11.4-16.0) gm/dL Hct 45.2 (34.0-46.0) % MCV 95.5 (80.0-100.0) fL MCH 32.2 (25.0-35.0) pg MCHC 33.8 (31.0-37.0) g/dL RDW 13.2 (11.5-15.5) % Plt Count 420 (150-450) k/uL MPV 8.1 Neutrophils % 74 % Lymphocytes % 21 % Monocytes % 3 % Eosinophils % 1 % Basophils % 1 % Neutrophils # 8.2 H (1.3-7.7) k/uL Lymphocytes # 2.3 (1.0-4.8) k/uL Monocytes # 0.4 (0-1.0) k/uL Eosinophils # 0.1 (0-0.7) k/uL Basophils # 0.1 (0-0.2) k/uL PT 9.7 (9.0-12.0) sec INR 0.9 (<1.2) APTT 22.3 (22.0-30.0) sec D-Dimer 0.25 (<0.60) mg/L FEU Sodium 139 (137-145) mmol/L Potassium 3.4 L (3.5-5.1) mmol/L Chloride 101 (98-107) mmol/L Carbon Dioxide 23 (22-30) mmol/L Anion Gap 15 mmol/L BUN 12 (7-17) mg/dL Creatinine 0.88 (0.52-1.04) mg/dL Est GFR (CKD-EPI)AfAm >90 (>60 ml/min/1.73 sqM) Est GFR (CKD-EPI)NonAf 80 (>60 ml/min/1.73 sqM) Glucose 97 (74-99) mg/dL Plasma Lactic Acid Jose David (0.7-2.0) mmol/L Calcium 9.3 (8.4-10.2) mg/dL Magnesium 2.0 (1.6-2.3) mg/dL Total Bilirubin 0.3 (0.2-1.3) mg/dL AST 20 (14-36) U/L ALT 17 (4-34) U/L Alkaline Phosphatase 92 (38-126) U/L Troponin I (0.000-0.034) ng/mL NT-Pro-B Natriuret Pep pg/mL Total Protein 7.5 (6.3-8.2) g/dL Albumin 4.6 (3.5-5.0) g/dL Coronavirus (PCR) (Not Detectd) Influenza Type A RNA (Not Detectd) Influenza Type B (PCR) (Not Detectd) 07/05/22 07/05/22 07/05/22 Range/Units 16:15 16:15 16:15 WBC (3.8-10.6) k/uL RBC (3.80-5.40) m/uL Hgb (11.4-16.0) gm/dL Hct (34.0-46.0) % MCV (80.0-100.0) fL MCH (25.0-35.0) pg MCHC (31.0-37.0) g/dL RDW (11.5-15.5) % Plt Count (150-450) k/uL MPV Neutrophils % % Lymphocytes % % Monocytes % % Eosinophils % % Basophils % % Neutrophils # (1.3-7.7) k/uL Lymphocytes # (1.0-4.8) k/uL Monocytes # (0-1.0) k/uL Eosinophils # (0-0.7) k/uL Basophils # (0-0.2) k/uL PT (9.0-12.0) sec INR (<1.2) APTT (22.0-30.0) sec D-Dimer (<0.60) mg/L FEU Sodium (137-145) mmol/L Potassium (3.5-5.1) mmol/L Chloride (98-107) mmol/L Carbon Dioxide (22-30) mmol/L Anion Gap mmol/L BUN (7-17) mg/dL Creatinine (0.52-1.04) mg/dL Est GFR (CKD-EPI)AfAm (>60 ml/min/1.73 sqM) Est GFR (CKD-EPI)NonAf (>60 ml/min/1.73 sqM) Glucose (74-99) mg/dL Plasma Lactic Acid Jose David 2.6 H* (0.7-2.0) mmol/L Calcium (8.4-10.2) mg/dL Magnesium (1.6-2.3) mg/dL Total Bilirubin (0.2-1.3) mg/dL AST (14-36) U/L ALT (4-34) U/L Alkaline Phosphatase (38-126) U/L Troponin I <0.012 (0.000-0.034) ng/mL NT-Pro-B Natriuret Pep 82 pg/mL Total Protein (6.3-8.2) g/dL Albumin (3.5-5.0) g/dL Coronavirus (PCR) (Not Detectd) Influenza Type A RNA (Not Detectd) Influenza Type B (PCR) (Not Detectd) 07/05/22 07/05/22 Range/Units 16:15 16:15 WBC (3.8-10.6) k/uL RBC (3.80-5.40) m/uL Hgb (11.4-16.0) gm/dL Hct (34.0-46.0) % MCV (80.0-100.0) fL MCH (25.0-35.0) pg MCHC (31.0-37.0) g/dL RDW (11.5-15.5) % Plt Count (150-450) k/uL MPV Neutrophils % % Lymphocytes % % Monocytes % % Eosinophils % % Basophils % % Neutrophils # (1.3-7.7) k/uL Lymphocytes # (1.0-4.8) k/uL Monocytes # (0-1.0) k/uL Eosinophils # (0-0.7) k/uL Basophils # (0-0.2) k/uL PT (9.0-12.0) sec INR (<1.2) APTT (22.0-30.0) sec D-Dimer (<0.60) mg/L FEU Sodium (137-145) mmol/L Potassium (3.5-5.1) mmol/L Chloride (98-107) mmol/L Carbon Dioxide (22-30) mmol/L Anion Gap mmol/L BUN (7-17) mg/dL Creatinine (0.52-1.04) mg/dL Est GFR (CKD-EPI)AfAm (>60 ml/min/1.73 sqM) Est GFR (CKD-EPI)NonAf (>60 ml/min/1.73 sqM) Glucose (74-99) mg/dL Plasma Lactic Acid Jose David (0.7-2.0) mmol/L Calcium (8.4-10.2) mg/dL Magnesium (1.6-2.3) mg/dL Total Bilirubin (0.2-1.3) mg/dL AST (14-36) U/L ALT (4-34) U/L Alkaline Phosphatase (38-126) U/L Troponin I (0.000-0.034) ng/mL NT-Pro-B Natriuret Pep pg/mL Total Protein (6.3-8.2) g/dL Albumin (3.5-5.0) g/dL Coronavirus (PCR) Not Detected (Not Detectd) Influenza Type A RNA Not Detected (Not Detectd) Influenza Type B (PCR) Not Detected (Not Detectd) - Radiology Data Radiology results: image reviewed (x-ray shows no acute process) Disposition Clinical Impression: Exertional dyspnea Disposition: ADMITTED IP TO THIS HOSP Is patient prescribed a controlled substance at d/c from ED?: No Referrals: Mann Sullivan DO [Primary Care Provider] - 1-2 days Time of Disposition: 17:59
[2022-07-05 16:31] LABS: Basophils # (A) 0.1 k/uL (0-0.2); Basophils % (A) 1 %; Eosinophils # (A) 0.1 k/uL (0-0.7); Eosinophils % (A) 1 %; HCT 45.2 % (34.0-46.0); HGB 15.3 gm/dL (11.4-16.0); Lymphocytes # (A) 2.3 k/uL (1.0-4.8); Lymphocytes % (A) 21 %; MCH 32.2 pg (25.0-35.0); MCHC 33.8 g/dL (31.0-37.0); MCV 95.5 fL (80.0-100.0); Mean Platelet Volume 8.1; Monocytes # (A) 0.4 k/uL (0-1.0); Monocytes % (A) 3 %; Neutrophils # (A) 8.2 k/uL (1.3-7.7); Neutrophils % (A) 74 %; Platelet Count 420 k/uL (150-450); RBC 4.74 m/uL (3.80-5.40); RDW 13.2 % (11.5-15.5); WBC 11.2 k/uL (3.8-10.6)
[2022-07-05 16:39] LABS: INR 0.9 (<1.2); Partial Thromboplastin Time 22.3 sec (22.0-30.0); Prothrombin Time 9.7 sec (9.0-12.0)
[2022-07-05 16:41] LABS: ALT 17 U/L (4-34); AST 20 U/L (14-36); African American GFR (CKD) >90 (>60 ml/min/1.73 sqM); Albumin 4.6 g/dL (3.5-5.0); Alkaline Phosphatase 92 U/L (38-126); Anion Gap 15 mmol/L; Blood Urea Nitrogen 12 mg/dL (7-17); Calcium 9.3 mg/dL (8.4-10.2); Carbon Dioxide 23 mmol/L (22-30); Chloride 101 mmol/L (98-107); Glucose 97 mg/dL (74-99); Non-African American GFR(CKD) 80 (>60 ml/min/1.73 sqM); Potassium 3.4 mmol/L (3.5-5.1); Sodium 139 mmol/L (137-145); Total Bilirubin 0.3 mg/dL (0.2-1.3); Total Protein 7.5 g/dL (6.3-8.2)
[2022-07-05] MEDS ORDERED: IBUPROFEN 600 MG TAB PO STA (16:46)
[2022-07-05] MEDS ORDERED: ASPIRIN 81 MG PO STA (18:02)
[2022-07-05] MEDS ORDERED: NITROGLYCERIN SL TABS 0.4 MG TAB SUBLINGUAL PRN (18:02)
[2022-07-06] MEDS ORDERED: POTASSIUM CHLORIDE ER 20 MEQ TAB.ER PO STA (03:26)
--- NOTE | 2022-07-06 03:26 | P.HPIM ---
History of Present Illness H&P Date: 07/05/22 The patient is a 47-year-old female with a PMH of hyperlipidemia who presents to the emergency room with complaints of chest discomfort and exertional dyspnea. The patient reports that over the past 1 week, she's been experiencing gradually worsening exertional dyspnea with which she now gets winded with even her ADLs. She also reports exertional substernal chest tightness, 8 out of 10 on maximal intensity, with some nausea. Reports that the discomfort is largely exertional and not at rest. Denies experiencing cough, fever, chills, lower extremities swelling or pain. Reports a family history of coronary artery disease with multiple family members on both sides dying at early ages from MIs. EKG in the emergency room revealed sinus rhythm at 71 bpm with T-wave inversion in leads V1 to V4 with flattening in leads V5 and V6 and aVF. Chest x-ray was unremarkable. Laboratory evaluation was remarkable for leukocytosis of 11.2, potassium 3.4, lactic acid 0.6, and troponin less than 0.012. Review of systems: Pertinent positives and negatives as discussed in HPI, a complete review of systems was performed and all other systems are negative. Physical examination: General: non toxic, no distress, appears at stated age, normal weight Derm: no unusual rashes/lesions, warm Head: atraumatic, normocephalic, symmetric Eyes: EOMI, no lid lag, anicteric sclera, pupils equal round reactive to light ENT: Nose and ears atraumatic Neck: No cervical lymphadenopathy, trachea midline, supple Mouth: no lip lesion, mucus membranes moist Cardiovascular: S1S2 reg, no murmur, positive dorsalis pedis pulse bilateral, no edema Lungs: CTA bilateral, no rhonchi, no rales, no accessory muscle use Abdominal: soft, nontender to palpation, no guarding Ext: muscle strength 5 out of 5 in all 4 extremities grossly, no gross muscle atrophy, no contractures, Neuro: CN II-XI grossly intact, no gross focal neuro deficits Psych: Alert, oriented, appropriate affect Assessment/plan Chest discomfort and exertional dyspnea -Rule out cardiac etiology -Echocardiogram -Cardiac monitoring -Trend troponin -Cardiology consult Lactic acidosis -Monitor for resolution Hypokalemia -Replace and monitor Leukocytosis -No signs of active infection at this time -Patient denied fever, chills, cough, urinary complaints DVT prophylaxis -Heparin subcu The patient is admitted with an anticipated less than 2 midnight stay for evaluation of chest discomfort CODE STATUS: Full Code Discussed with: Patient Anticipated discharge date: In a.m. Anticipated discharge place: Home Past Medical History Past Medical History: Hyperlipidemia Additional Past Medical History / Comment(s): Hx MIGRAINES, hx elevated liver enzymes, marcin shoulder prob. Upper abd pain, nausea for long time, 15 years estimated. NT lt leg w/ pain. History of Any Multi-Drug Resistant Organisms: None Reported Past Surgical History: Cholecystectomy, Orthopedic Surgery, Tubal Ligation Additional Past Surgical History / Comment(s): Marcin SHOULDER ROTATOR CUFF, LEFT KNEE arthroscopy, Past Anesthesia/Blood Transfusion Reactions: Motion Sickness Past Psychological History: Anxiety, Depression Additional Psychological History / Comment(s): STATES CURRENTLY HAS SOME DEPRESSION DUE TO HEALTH AND WORK. Smoking Status: Never smoker Past Alcohol Use History: Rare Past Drug Use History: None Reported - Past Family History Mother Family Medical History: Cancer Additional Family Medical History / Comment(s): RECTAL CANCER Medications and Allergies Home Medications Medication Instructions Recorded Confirmed Type Omeprazole [PriLOSEC] 20 mg PO DAILY 11/25/19 07/05/22 History Butalb/APAP/Caff 50-325-40Mg 1 tab PO Q8H PRN 07/05/22 07/05/22 History [Fioricet 50-325-40] methylPREDNISolone Dose Pack See Taper PO DIRECTED 07/05/22 07/05/22 History [Medrol Dose Pack] traMADol HCL 50 mg PO BID PRN 07/05/22 07/05/22 History Allergies Allergy/AdvReac Type Severity Reaction Status Date / Time No Known Allergies Allergy Unverified 07/05/22 15:18 Physical Exam Vitals: Vital Signs Temp Pulse Pulse Resp BP BP Pulse Ox 07/05/22 20:35 98.3 F 91 18 127/79 94 L 07/05/22 20:00 93 18 128/78 95 07/05/22 18:19 71 16 127/76 97 07/05/22 16:39 16 07/05/22 12:59 98.2 F 53 L 18 127/83 100 Intake and Output 07/05/22 07/05/22 07/05/22 06:59 14:59 22:59 Other: # Voids 1 Weight 67.132 kg 67.132 kg Results CBC & Chem 7: 10/07/22 16:15 07/05/22 16:15 Labs: Abnormal Lab Results - Last 24 Hours (Table) 07/05/22 07/05/22 07/05/22 Range/Units 16:15 16:15 16:15 WBC 11.2 H (3.8-10.6) k/uL Neutrophils # 8.2 H (1.3-7.7) k/uL Potassium 3.4 L (3.5-5.1) mmol/L Plasma Lactic Acid Jose David 2.6 H* (0.7-2.0) mmol/L 07/05/22 Range/Units 19:10 WBC (3.8-10.6) k/uL Neutrophils # (1.3-7.7) k/uL Potassium (3.5-5.1) mmol/L Plasma Lactic Acid Jose David 2.2 H* (0.7-2.0) mmol/L Thrombosis Risk Factor Assmnt - Choose All That Apply Any of the Below Risk Factors Present?: Yes Each Factor Represents 1 point: Age 41-60 years Other Risk Factors: No Other congenital or acquired thrombophilia - If yes, enter type in comment: No Thrombosis Risk Factor Assessment Total Risk Factor Score: 1 Thrombosis Risk Factor Assessment Level: Low Risk
[2022-07-06] MEDS: HEPARIN SODIUM,PORCINE/PF 5,000 UNIT/0.5 ML SYRINGE SQ SCH ×2 (08:23→16:14)
[2022-07-06] MEDS: BUTALB/APAP/CAFF 50-325-40MG TAB PO PRN ×2 (08:23→19:55)
[2022-07-06] MEDS: ASPIRIN 325 MG TAB PO SCH (08:23)
--- NOTE | 2022-07-06 09:13 | P.CRDCN ---
History of Present Illness Consult date: 07/06/22 Chief complaint: Shortness of breath/Chest pain History of present illness: This is a very pleasant 47-year-old female patient with no significant past medical history is significant family history of coronary artery disease involving her mother who presented to the hospital complaining of shortness of breath as well as chest discomfort. The symptoms started about 4 weeks ago. In February 2022 she was diagnosed was COVID-19 infection and since then she has not been feeding well. She describes shortness of breath with exertion started a few weeks ago and lately has progressed on her. Beside that she describes intermittent episodes of chest discomfort appeared to be overall atypical. She reports no lower extremities edema. No dizziness or lightheadedness and no feeling of heart racing or fluttering and no presyncope or syncope. She underwent a workup including a chest x-ray showed no acute abnormalities. The EKG showed sinus rhythm with T-wave inversion in V1 and V2 and V3 and known to be a chronic or not because his EKG in the chart. Troponin came in to be unremarkable. The rest of the blood work or old came in to be unremarkable. The patient was seen and examined this morning she is euvolemic on examination and she doesn't seems to be in any overt congestive heart failure. Past Medical History Past Medical History: Hyperlipidemia Additional Past Medical History / Comment(s): Hx MIGRAINES, hx elevated liver enzymes, marcin shoulder prob. Upper abd pain, nausea for long time, 15 years estimated. NT lt leg w/ pain. History of Any Multi-Drug Resistant Organisms: None Reported Past Surgical History: Cholecystectomy, Orthopedic Surgery, Tubal Ligation Additional Past Surgical History / Comment(s): Marcin SHOULDER ROTATOR CUFF, LEFT KNEE arthroscopy, Past Anesthesia/Blood Transfusion Reactions: Motion Sickness Past Psychological History: Anxiety, Depression Additional Psychological History / Comment(s): STATES CURRENTLY HAS SOME DEPRESSION DUE TO HEALTH AND WORK. Smoking Status: Never smoker Past Alcohol Use History: Rare Past Drug Use History: None Reported - Past Family History Mother Family Medical History: Cancer Additional Family Medical History / Comment(s): RECTAL CANCER Medications and Allergies Home Medications Medication Instructions Recorded Confirmed Type Omeprazole [PriLOSEC] 20 mg PO DAILY 11/25/19 07/05/22 History Butalb/APAP/Caff 50-325-40Mg 1 tab PO Q8H PRN 07/05/22 07/05/22 History [Fioricet 50-325-40] methylPREDNISolone Dose Pack See Taper PO DIRECTED 07/05/22 07/05/22 History [Medrol Dose Pack] traMADol HCL 50 mg PO BID PRN 07/05/22 07/05/22 History Allergies Allergy/AdvReac Type Severity Reaction Status Date / Time No Known Allergies Allergy Unverified 07/05/22 15:18 Physical Exam Vitals: Vital Signs Temp Pulse Pulse Resp BP BP Pulse Ox 07/06/22 08:01 97 07/06/22 02:11 98.2 F 57 L 17 98/54 98 07/05/22 20:35 98.3 F 91 18 127/79 94 L 07/05/22 20:00 93 18 128/78 95 07/05/22 18:19 71 16 127/76 97 07/05/22 16:39 16 07/05/22 12:59 98.2 F 53 L 18 127/83 100 Intake and Output 07/05/22 07/06/22 07/06/22 22:59 06:59 14:59 Other: # Voids 1 2 Weight 67.132 kg - Constitutional General appearance: no acute distress - Respiratory Respiratory: bilateral: CTA - Cardiovascular Rhythm: regular Heart sounds: normal: S1, S2 Abnormal Heart Sounds: systolic murmur Results 07/05/22 16:15 07/05/22 16:15 Cardiac Enzymes 07/05/22 07/05/22 07/05/22 Range/Units 16:15 16:15 18:37 AST 20 (14-36) U/L Troponin I <0.012 <0.012 (0.000-0.034) ng/mL 07/05/22 Range/Units 21:53 AST (14-36) U/L Troponin I <0.012 (0.000-0.034) ng/mL Coagulation 07/05/22 Range/Units 16:15 PT 9.7 (9.0-12.0) sec APTT 22.3 (22.0-30.0) sec CBC 07/05/22 Range/Units 16:15 WBC 11.2 H (3.8-10.6) k/uL RBC 4.74 (3.80-5.40) m/uL Hgb 15.3 (11.4-16.0) gm/dL Hct 45.2 (34.0-46.0) % Plt Count 420 (150-450) k/uL Comprehensive Metabolic Panel 07/05/22 Range/Units 16:15 Sodium 139 (137-145) mmol/L Potassium 3.4 L (3.5-5.1) mmol/L Chloride 101 (98-107) mmol/L Carbon Dioxide 23 (22-30) mmol/L BUN 12 (7-17) mg/dL Creatinine 0.88 (0.52-1.04) mg/dL Glucose 97 (74-99) mg/dL Calcium 9.3 (8.4-10.2) mg/dL AST 20 (14-36) U/L ALT 17 (4-34) U/L Alkaline Phosphatase 92 (38-126) U/L Total Protein 7.5 (6.3-8.2) g/dL Albumin 4.6 (3.5-5.0) g/dL Current Medications Generic Name Dose Route Start Last Admin Trade Name Freq PRN Reason Stop Dose Admin Acetaminophen/Butalbital/Caffeine 1 each 07/06/22 08:09 07/06/22 08:23 Butalb/Apap/Caff 50-325-40mg Tab PO 1 each Q8H PRN Administration Migraine Headache Aspirin 325 mg 07/06/22 09:00 07/06/22 08:23 Aspirin 325 Mg Tab PO 325 mg DAILY PETRA Administration Atorvastatin Calcium 80 mg 07/06/22 21:00 Atorvastatin 80 Mg Tab PO HS PETRA Heparin Sodium (Porcine) 5,000 unit 07/06/22 08:00 07/06/22 08:23 Heparin Sodium,Porcine/Pf 5,000 Unit/0.5 Ml Syringe SQ 5,000 unit Q8HR PETRA Administration Nitroglycerin 0.4 mg 07/05/22 18:02 Nitroglycerin Sl Tabs 0.4 Mg Tab SUBLINGUAL Q5M PRN Chest Pain Intake and Output 07/05/22 07/06/22 07/06/22 22:59 06:59 14:59 Other: # Voids 1 2 Weight 67.132 kg 07/05/22 16:15 07/05/22 16:15 Assessment and Plan Assessment: Assessment #1 shortness of breath #2 intermittent episodes of chest discomfort #3 family history of CAD Plan #1 acute coronary event was ruled out. PE was ruled out as well #2 obtain an echo to assess ejection fraction #3 severe CAD to be ruled out #4 follow-up with the patient
[2022-07-06 11:03] LABS: Chol/HDL Ratio 4.58 Ratio
[2022-07-06 11:57] LABS: African American GFR (CKD) 100.6 (60.0-200.0); Anion Gap 8.2 mmol/L (10.00-18.00); BUN/Creat Ratio 10.28 Ratio (12.00-20.00); Blood Urea Nitrogen 8.4 mg/dL (9.0-27.0); Calcium 8.9 mg/dL (8.7-10.3); Carbon Dioxide 29.4 mmol/L (20.0-27.5); Non-African American GFR(CKD) 86.8 (60.0-200.0); Potassium 4.2 mmol/L (3.5-5.5)
--- NOTE | 2022-07-06 14:26 | P.PN ---
Subjective Progress Note Date: 07/06/22 Hospital course: Patient is a very pleasant 47-year-old female with a past medical history of hyperlipidemia. She presented to the emergency department with a chief complaint of chest discomfort and exertional dyspnea beginning approximately one week ago and progressively worsening. Patient reported the chest discomfort is described as a tightness and is typically only present with exertion accompanied by her dyspnea and improves with rest. She underwent full evaluation in the emergency department. EKG was completed revealing sinus rhythm at 71 bpm with T-wave inversion in leads V1 through V4, no previous EKGs available for comparison. Chest x-ray was negative for acute cardiopulmonary process. Labs revealed mild leukocytosis with WBC count of 11.2, hypokalemia with potassium of 3.4 and lactic acidosis with initial lactate 2.6 decreasing down to 1.4 status post IV fluid bolus. Troponin normal findings at less than 0.012. Patient was admitted under our services with consultation to cardiology. Physical exam: Patient was seen and fully evaluated at bedside this morning. Patient reports she is currently having a migraine and requested home medication Fioricet. Medication reordered at this time. Patient denies having any other complaints at this time including dizziness, lightheadedness, chest pain or palpitations, or shortness of breath at rest. Vital signs reviewed and stable. General: Nontoxic, no distress and appears stated age. Derm: Skin warm and dry, normal coloration for ethnicity. Head: Atraumatic, normocephalic and symmetric. Eyes: EOMs intact, no lid lag, and anicteric sclera Mouth: no lip lesions, mucus membranes moist Cardiovascular: regular rate and rhythm with normal S1S2, no murmur, positive posterior tibial pulses bilaterally, and cap refill < 2 seconds. Lungs: Respirations even, regular, and unlabored on room air. Lungs CTA bilaterally, no rhonchi, no rales, no wheezing, and no accessory muscle usage. Abdominal: soft, nontender to palpation, no guarding, no appreciable organomegaly Ext: ROM intact. No gross muscle atrophy, no edema, no contractures Neuro: Speech clear, face symmetrical and CN II-XII grossly intact with no noted focal neuro deficits Psych: Alert and oriented to person, place, time, and situation. Appropriate and pleasant affect. Assessment and Plan of Care: Chest tightness and exertional dyspnea, rule out cardiac etiology -Cardiology following, appreciate further recommendations -Telemetry monitoring -Troponins negative -Cardiac diet -Aspirin and atorvastatin -Echocardiogram Hypokalemia, resolved Lactic acidosis, resolved Hyperlipidemia -Patient placed on atorvastatin 80 mg nightly -Lipid profile to be completed. CODE STATUS: Full code DVT prophylaxis: Heparin Discussed with: Patient and RN Anticipated discharge date: Clinical course to determine, possibly 1-2 days pending results of echocardiogram Anticipated discharge place: Home A total of 33 minutes was spent on the care of this complex patient more than 50% of the time was spent in counseling and care coordination. I reviewed the documentation as provided by the JOSE ALEJANDRO above, who is the original author of this note. I agree with the documented assessment and plan, with the following changes: none Objective - Vital Signs Vital signs: Vital Signs Temp 98.3 F 07/06/22 07:00 Pulse 58 L 07/06/22 07:00 Resp 18 07/06/22 07:00 BP 105/62 07/06/22 07:00 Pulse Ox 97 07/06/22 08:01 FiO2 Intake & Output 07/05/22 07/06/22 07/06/22 18:59 06:59 18:59 Weight 67.132 kg Other: # Voids 2 - Labs CBC & Chem 7: 07/05/22 16:15 07/06/22 07:31 Labs: Abnormal Lab Results - Last 24 Hours (Table) 07/05/22 07/05/22 07/05/22 Range/Units 16:15 16:15 16:15 WBC 11.2 H (3.8-10.6) k/uL Neutrophils # 8.2 H (1.3-7.7) k/uL Potassium 3.4 L (3.5-5.1) mmol/L Carbon Dioxide (20.0-27.5) mmol/L Anion Gap (10.00-18.00) mmol/L BUN (9.0-27.0) mg/dL BUN/Creatinine Ratio (12.00-20.00) Ratio Plasma Lactic Acid Jose David 2.6 H* (0.7-2.0) mmol/L Triglycerides (0.00-149.00) mg/dL Cholesterol (0.00-200.00) mg/dL LDL Cholesterol, Calc (0.0-131.0) mg/dL VLDL Cholesterol, Calc (5.00-40.00) mg/dL 07/05/22 07/05/22 07/06/22 Range/Units 16:15 19:10 07:31 WBC (3.8-10.6) k/uL Neutrophils # (1.3-7.7) k/uL Potassium (3.5-5.1) mmol/L Carbon Dioxide 29.4 H (20.0-27.5) mmol/L Anion Gap 8.20 L (10.00-18.00) mmol/L BUN 8.4 L (9.0-27.0) mg/dL BUN/Creatinine Ratio 10.28 L (12.00-20.00) Ratio Plasma Lactic Acid Jose David 2.2 H* (0.7-2.0) mmol/L Triglycerides 237.00 H (0.00-149.00) mg/dL Cholesterol 250.00 H (0.00-200.00) mg/dL LDL Cholesterol, Calc 148.0 H (0.0-131.0) mg/dL VLDL Cholesterol, Calc 47.40 H (5.00-40.00) mg/dL
--- NOTE | 2022-07-06 15:54 | CA ---
Transthoracic Echo Report Name: Adelia Cedillo Age: 47 Gender: F : 1975 Exam Date: 07/06/2022 11:21 Exam Location: [facility] Ht (in): 65 Wt (lb): 148 Ordering Physician: Francisco Tompkins DO Attending/Referring Phys: Other Wood Processing Machine Operator Ellie Cunningham RDCS Procedure CPT: Indications: exertional dyspnea Cardiac Hx: Technical Quality: Fair Contrast 1: Total Dose (mL): Contrast 2: Total Dose (mL): MEASUREMENTS (Male / Female) Normal Values 2D ECHO LV Diastolic Diameter PLAX 4.1 cm 4.2 - 5.9 / 3.9 - 5.3 cm LV Systolic Diameter PLAX 2.8 cm IVS Diastolic Thickness 0.9 cm 0.6 - 1.0 / 0.6 - 0.9 cm LVPW Diastolic Thickness 1.1 cm 0.6 - 1.0 / 0.6 - 0.9 cm LV Relative Wall Thickness 0.5 RV Internal Dim ED PLAX 3.1 cm LA Volume 41.2 cm??? 18 - 58 / 22 - 52 cm??? M-MODE Aortic Root Diameter MM 2.7 cm LA Systolic Diameter MM 3.0 cm LA Ao Ratio MM 1.1 AV Cusp Separation MM 1.8 cm DOPPLER AV Peak Velocity 120.1 cm/s AV Peak Gradient 5.8 mmHg LVOT Peak Velocity 89.7 cm/s LVOT Peak Gradient 3.2 mmHg MV Area PHT 3.2 cm??? Mitral E Point Velocity 113.8 cm/s Mitral A Point Velocity 42.9 cm/s Mitral E to A Ratio 2.7 MV Deceleration Time 239.8 ms MV E' Velocity 11.1 cm/s Mitral E to MV E' Ratio 10.3 TR Peak Velocity 179.8 cm/s TR Peak Gradient 12.9 mmHg Right Ventricular Systolic Press 17.9 mmHg FINDINGS Left Ventricle Mildly increased left ventricular wall thickness. Normal left ventricular systolic function with no obvious regional wall motion abnormalities. Left ventricular ejection fraction is estimated at 55-60 %. Normal left ventricular diastolic filling pattern. Right Ventricle Normal right ventricular size and function. Right ventricular systolic pressure within normal limits. Right Atrium Normal right atrial size. Left Atrium Normal left atrial size. Mitral Valve Structurally normal mitral valve. Trace to mild mitral regurgitation. Aortic Valve Trileaflet aortic valve. No aortic valve stenosis or regurgitation. Tricuspid Valve Structurally normal tricuspid valve. Mild tricuspid regurgitation. Pulmonic Valve Trace pulmonic regurgitation. Pericardium No pericardial effusion. Aorta Normal size aortic root and proximal ascending aorta. CONCLUSIONS Normal left ventricular systolic function. Normal left ventricular diastolic pattern Normal intracardiac valves Previewed by: Dr. Camilo Crow MD (Electronically Signed) Final Date: 06 July 2022 15:53
[2022-07-06] MEDS: ATORVASTATIN 80 MG TAB PO SCH (19:55)
[2022-07-07] MEDS: HEPARIN SODIUM,PORCINE/PF 5,000 UNIT/0.5 ML SYRINGE SQ SCH ×4 (01:45→23:49)
--- NOTE | 2022-07-07 08:09 | P.PN ---
Subjective Progress Note Date: 07/07/22 Principal diagnosis: Chest discomfort and shortness of breath This is a very pleasant 47-year-old female patient with no significant past medical history is significant family history of coronary artery disease involving her mother who presented to the hospital complaining of shortness of breath as well as chest discomfort. The symptoms started about 4 weeks ago. In February 2022 she was diagnosed was COVID-19 infection and since then she has not been feeding well. She describes shortness of breath with exertion started a few weeks ago and lately has progressed on her. Beside that she describes intermittent episodes of chest discomfort appeared to be overall atypical. She reports no lower extremities edema. No dizziness or lightheadedness and no feeling of heart racing or fluttering and no presyncope or syncope. She underwent a workup including a chest x-ray showed no acute abnormalities. The EKG showed sinus rhythm with T-wave inversion in V1 and V2 and V3 and known to be a chronic or not because his EKG in the chart. Troponin came in to be unremarkable. The rest of the blood work or old came in to be unremarkable. The patient was seen and examined this morning she is euvolemic on examination and she doesn't seems to be in any overt congestive heart failure. July 072021 The patient was seen this morning. She continues to be symptomatic interval chest discomfort and shortness of breath. She underwent further investigation including an echocardiogram which revealed normal LV function was no significant valvular abnormalities. I'm going to schedule the patient to undergo a stress test tomorrow morning Objective - Vital Signs Vital signs: Vital Signs Temp 97.7 F 07/07/22 02:10 Pulse 53 L 07/07/22 02:10 Resp 15 07/07/22 02:10 BP 93/58 07/07/22 02:10 Pulse Ox 100 07/07/22 02:10 FiO2 Intake & Output 07/06/22 07/07/22 07/07/22 18:59 06:59 18:59 Other: # Voids 2 2 - Constitutional General appearance: Present: no acute distress - Respiratory Respiratory: bilateral: CTA - Cardiovascular Rhythm: regular Heart sounds: normal: S1, S2 - Labs CBC & Chem 7: 07/05/22 16:15 07/06/22 07:31 Labs: Abnormal Lab Results - Last 24 Hours (Table) 07/05/22 07/06/22 Range/Units 16:15 07:31 Carbon Dioxide 29.4 H (20.0-27.5) mmol/L Anion Gap 8.20 L (10.00-18.00) mmol/L BUN 8.4 L (9.0-27.0) mg/dL BUN/Creatinine Ratio 10.28 L (12.00-20.00) Ratio Triglycerides 237.00 H (0.00-149.00) mg/dL Cholesterol 250.00 H (0.00-200.00) mg/dL LDL Cholesterol, Calc 148.0 H (0.0-131.0) mg/dL VLDL Cholesterol, Calc 47.40 H (5.00-40.00) mg/dL Assessment and Plan Assessment: Assessment #1 shortness of breath #2 intermittent episodes of chest discomfort #3 family history of CAD Plan #1 acute coronary event was ruled out. PE was ruled out as well #2 obtain a stress test to rule out severe CAD Further recommendation to follow
[2022-07-07] MEDS: ASPIRIN 325 MG TAB PO SCH (08:42)
[2022-07-07] MEDS: BUTALB/APAP/CAFF 50-325-40MG TAB PO PRN ×2 (08:44→20:01)
--- NOTE | 2022-07-07 18:23 | P.PN ---
Subjective Progress Note Date: 07/07/22 Hospital course: Patient is a very pleasant 47-year-old female with a past medical history of hyperlipidemia. She presented to the emergency department with a chief complaint of chest discomfort and exertional dyspnea beginning approximately one week ago and progressively worsening. Patient reported the chest discomfort is described as a tightness and is typically only present with exertion accompanied by her dyspnea and improves with rest. She underwent full evaluation in the emergency department. EKG was completed revealing sinus rhythm at 71 bpm with T-wave inversion in leads V1 through V4, no previous EKGs available for comparison. Chest x-ray was negative for acute cardiopulmonary process. Labs revealed mild leukocytosis with WBC count of 11.2, hypokalemia with potassium of 3.4 and lactic acidosis with initial lactate 2.6 decreasing down to 1.4 status post IV fluid bolus. Troponin normal findings at less than 0.012. Patient was admitted under our services with consultation to cardiology. troponins trended and all negative at less than 0.0123 draws. Echocardiogram completed revealing normal EF of 55-60% with no reported valvular or structural abnormalities. Physical exam: Patient was seen and fully evaluated at bedside this morning. patient reports resolution of previously reported migraine but continues to have pressure to midsternal chest accompanied by pain radiating through bilateral lower ribs. Cardiology planning to take patient for cardiac stress tomorrow. Vital signs reviewed and stable. General: Nontoxic, no distress and appears stated age. Derm: Skin warm and dry, normal coloration for ethnicity. Head: Atraumatic, normocephalic and symmetric. Eyes: EOMs intact, no lid lag, and anicteric sclera Mouth: no lip lesions, mucus membranes moist Cardiovascular: regular rate and rhythm with normal S1S2, no murmur, positive posterior tibial pulses bilaterally, and cap refill < 2 seconds. Lungs: Respirations even, regular, and unlabored on room air. Lungs CTA bilaterally, no rhonchi, no rales, no wheezing, and no accessory muscle usage. Abdominal: soft, nontender to palpation, no guarding, no appreciable organomegaly Ext: ROM intact. No gross muscle atrophy, no edema, no contractures Neuro: Speech clear, face symmetrical and CN II-XII grossly intact with no noted focal neuro deficits Psych: Alert and oriented to person, place, time, and situation. Appropriate and pleasant affect. Assessment and Plan of Care: Chest tightness and exertional dyspnea, rule out cardiac etiology -Cardiology following, appreciate further recommendations -Telemetry monitoring -Troponins negative -Cardiac diet -Aspirin and atorvastatin -Echocardiogram Hypokalemia, resolved Lactic acidosis, resolved Hyperlipidemia -Patient placed on atorvastatin 80 mg nightly -Lipid profile to be completed. CODE STATUS: Full code DVT prophylaxis: Heparin Discussed with: Patient and RN Anticipated discharge date: likely tomorrow status post completion of stress test pending results. Anticipated discharge place: Home A total of 32 minutes was spent on the care of this complex patient more than 50% of the time was spent in counseling and care coordination. .I reviewed the documentation as provided by the JOSE ALEJANDRO above, who is the original author of this note. I agree with the documented assessment and plan, with the following changes: none Objective - Vital Signs Vital signs: Vital Signs Temp 98.3 F 07/07/22 07:00 Pulse 62 07/07/22 07:00 Resp 18 07/07/22 07:00 BP 92/61 07/07/22 07:00 Pulse Ox 97 07/07/22 07:00 FiO2 Intake & Output 07/06/22 07/07/22 07/07/22 18:59 06:59 18:59 Other: # Voids 2 2 1 - Labs CBC & Chem 7: 07/08/22 06:05 07/08/22 06:05 Labs: Abnormal Lab Results - Last 24 Hours (Table) 07/05/22 07/06/22 Range/Units 16:15 07:31 Carbon Dioxide 29.4 H (20.0-27.5) mmol/L Anion Gap 8.20 L (10.00-18.00) mmol/L BUN 8.4 L (9.0-27.0) mg/dL BUN/Creatinine Ratio 10.28 L (12.00-20.00) Ratio Triglycerides 237.00 H (0.00-149.00) mg/dL Cholesterol 250.00 H (0.00-200.00) mg/dL LDL Cholesterol, Calc 148.0 H (0.0-131.0) mg/dL VLDL Cholesterol, Calc 47.40 H (5.00-40.00) mg/dL
[2022-07-07] MEDS: ATORVASTATIN 80 MG TAB PO SCH (20:02)
[2022-07-08] MEDS: HEPARIN SODIUM,PORCINE/PF 5,000 UNIT/0.5 ML SYRINGE SQ SCH (07:50)
[2022-07-08] MEDS: ASPIRIN 325 MG TAB PO SCH (07:50)
[2022-07-08 07:52] VITALS: BP 95/57; PULSE 65; RESP 14; TEMP 98.3
[2022-07-08 09:01] LABS: African American GFR (CKD) 120.4 (60.0-200.0); Albumin 3.5 g/dL (3.8-4.9); Albumin/Globulin Ratio 1.75 (1.60-3.17); Anion Gap 7.2 mmol/L (10.00-18.00); BUN/Creat Ratio 14.14 Ratio (12.00-20.00); Blood Urea Nitrogen 9.9 mg/dL (9.0-27.0); Calcium 8.6 mg/dL (8.7-10.3); Carbon Dioxide 26.8 mmol/L (20.0-27.5); Non-African American GFR(CKD) 103.9 (60.0-200.0); Potassium 4.4 mmol/L (3.5-5.5); Total Bilirubin 0.4 mg/dL (0.30-1.20); Total Protein 5.5 g/dL (6.2-8.2)
[2022-07-08 09:08] LABS: HCT 37.3 % (37.2-46.3); HGB 12.9 g/dL (12.0-15.0); MCH 33.2 pg (27.0-32.0); MCHC 34.6 g/dL (32.0-37.0); MCV 95.9 fL (80.0-97.0); Mean Platelet Volume 10.2 fL (9.5-12.2); NRBC Per 100 WBC 0 /100 WBCS (0.0-0.0); Platelet Count 384 X 10*3/uL (140-440); RBC 3.89 X 10*6/uL (4.10-5.20); RDW 13.2 % (11.5-14.5)
--- NOTE | 2022-07-08 10:28 | P.PN ---
Subjective Progress Note Date: 07/08/22 HISTORY OF PRESENT ILLNESS: This is a very pleasant 47-year-old female patient with no significant past medical history is significant family history of coronary artery disease invo lving her mother who presented to the hospital complaining of shortness of breath as well as chest discomfort. The symptoms started about 4 weeks ago. In February 2022 she was diagnosed was COVID-19 infection and since then she has not been feeding well. She describes shortness of breath with exertion started a few weeks ago and lately has progressed on her. Beside that she describes intermittent episodes of chest discomfort appeared to be overall atypical. She reports no lower extremities edema. No dizziness or lightheadedness and no feeling of heart racing or fluttering and no presyncope or syncope. She underwent a workup including a chest x-ray showed no acute abnormalities. The EKG showed sinus rhythm with T-wave inversion in V1 and V2 and V3 and known to be a chronic or not because his EKG in the chart. Troponin came in to be unremarkable. The rest of the blood work or old came in to be unremarkable. The patient was seen and examined this morning she is euvolemic on examination and she doesn't seems to be in any overt congestive heart failure. July 072021 The patient was seen this morning. She continues to be symptomatic interval chest discomfort and shortness of breath. She underwent further investigation including an echocardiogram which revealed normal LV function was no significant valvular abnormalities. I'm going to schedule the patient to undergo a stress test tomorrow morning 07/08/2022 Patient examined this morning at the bedside. Patient denies chest pain or pressure. She currently denies shortness of breath. Vital signs are stable. Echocardiogram completed revealing ejection fraction 55-60% PHYSICAL EXAM: VITAL SIGNS: Reviewed. GENERAL: Well-developed in no acute distress. NECK: Supple. No JVD or thyromegaly LUNGS: Respirations even and unlabored. Lungs essentially clear to auscultation bilaterally. HEART: Regular rate and rhythm. S1 and S2 heard. EXTREMITIES: Normal range of motion. No clubbing or cyanosis. Peripheral pulses intact. No lower extremity edema ASSESSMENT: Shortness of breath Chest pain Family history of CAD PLAN: Continue current cardiac medications Patient to undergo stress echo today. If negative she may be discharged home from a cardiac standpoint Nurse practitioner note has been reviewed by physician. Signing provider agrees with the documented findings, assessment, and plan of care. Objective - Vital Signs Vital signs: Vital Signs Temp 98.3 F 07/08/22 07:52 Pulse 65 07/08/22 07:52 Resp 14 07/08/22 07:52 BP 95/57 07/08/22 07:52 Pulse Ox 96 07/08/22 07:52 FiO2 21 07/07/22 19:17 Intake & Output 07/07/22 07/08/22 07/08/22 18:59 06:59 18:59 Intake Total 240 50 Balance 240 50 Intake: Oral 240 50 Other: # Voids 2 - Labs CBC & Chem 7: 07/08/22 06:05 07/08/22 06:05 Labs: Abnormal Lab Results - Last 24 Hours (Table) 07/08/22 07/08/22 Range/Units 06:05 06:05 RBC 3.89 L (4.10-5.20) X 10*6/uL MCH 33.2 H (27.0-32.0) pg Anion Gap 7.20 L (10.00-18.00) mmol/L Calcium 8.6 L (8.7-10.3) mg/dL AST 11 L (13-35) U/L Total Protein 5.5 L (6.2-8.2) g/dL Albumin 3.5 L (3.8-4.9) g/dL
--- NOTE | 2022-07-08 13:57 | P.DS ---
Providers Date of admission: 07/05/22 18:04 Expected date of discharge: 07/08/22 Attending physician: Rachele Bergeron MD Primary care physician: [facility] Course: Discharge Diagnosis: Chest tightness and exertional dyspnea, cardiac etiology ruled out. Patient given GI cocktail providing mild relief, recommending patient continue with PPI omeprazole daily and to follow up outpatient with jackhammer operator. Hypokalemia, resolved Lactic acidosis, resolved Hyperlipidemia. Lipid profile revealing elevated triglycerides of 237, elevated cholesterol of 250, LDL of 148, and VLDL of 47.40. Patient discharged home on atorvastatin 40 mg nightly. Hospital Course: Patient is a very pleasant 47-year-old female with a past medical history of hyperlipidemia. She presented to the emergency department with a chief complaint of chest discomfort and exertional dyspnea beginning approximately one week ago and progressively worsening. Patient reported the chest discomfort is described as a tightness and is typically only present with exertion accompanied by her dyspnea and improves with rest. She underwent full evaluation in the e mergency department. EKG was completed revealing sinus rhythm at 71 bpm with T- wave inversion in leads V1 through V4, no previous EKGs available for comparison. Chest x-ray was negative for acute cardiopulmonary process. Labs revealed mild leukocytosis with WBC count of 11.2, hypokalemia with potassium of 3.4 and lactic acidosis with initial lactate 2.6 decreasing down to 1.4 status post IV fluid bolus. Troponin normal findings at less than 0.012. Patient was admitted under our services with consultation to cardiology. troponins trended and all negative at less than 0.0123 draws. Echocardiogram completed revealing normal EF of 55-60% with no reported valvular or structural abnormalities. Lipid profile revealing elevated triglycerides of 237, elevated cholesterol of 250, LDL of 148, and VLDL of 47.40. Patient started on atorvastatin. Patient underwent cardiac stress test negative for reversible ischemia. Cardiology recommending outpatient follow-up in our office. Patient is medically stable for discharge at this time and to follow up outpatient as discussed with PCP, cardiology, and gastroenterology. Physical exam: Vital signs reviewed and stable. General: Nontoxic, no distress and appears stated age. Derm: Skin warm and dry, normal coloration for ethnicity. Head: Atraumatic, normocephalic and symmetric. Eyes: EOMs intact, no lid lag, and anicteric sclera Mouth: no lip lesions, mucus membranes moist Cardiovascular: regular rate and rhythm with normal S1S2, no murmur, positive posterior tibial pulses bilaterally, and cap refill < 2 seconds. Lungs: Respirations even, regular, and unlabored on room air. Lungs CTA bilaterally, no rhonchi, no rales, no wheezing, and no accessory muscle usage. Abdominal: soft, nontender to palpation, no guarding, no appreciable organomegaly Ext: ROM intact. No gross muscle atrophy, no edema, no contractures Neuro: Speech clear, face symmetrical and CN II-XII grossly intact with no noted focal neuro deficits Psych: Alert and oriented to person, place, time, and situation. Appropriate and pleasant affect. A total of 32 minutes of time were spent preparing this complex discharge summary. Pt was discharged on 07/08/22 at 1:55 PM .I reviewed the documentation as provided by the JOSE ALEJANDRO above, who is the original author of this note. I agree with the documented assessment and plan, with the following changes: none Patient Condition at Discharge: Stable Plan - Discharge Summary New Discharge Prescriptions: New Atorvastatin [Lipitor] 40 mg PO DAILY 30 Days #30 tablet Continue Omeprazole [PriLOSEC] 20 mg PO DAILY traMADol HCL 50 mg PO BID PRN PRN Reason: Pain Butalb/APAP/Caff 50-325-40Mg [Fioricet 50-325-40] 1 tab PO Q8H PRN PRN Reason: Migraine Headache Discontinued methylPREDNISolone Dose Pack [Medrol Dose Pack] See Taper PO DIRECTED Discharge Medication List Omeprazole [PriLOSEC] 20 mg PO DAILY 11/25/19 [History] Butalb/APAP/Caff 50-325-40Mg [Fioricet 50-325-40] 1 tab PO Q8H PRN 07/05/22 [History] traMADol HCL 50 mg PO BID PRN 07/05/22 [History] Atorvastatin [Lipitor] 40 mg PO DAILY 30 Days #30 tablet 07/08/22 [Rx] Follow up Appointment(s)/Referral(s): Mann Sullivan DO [Primary Care Provider] - 1-2 days Camilo Crow MD [STAFF PHYSICIAN] - 1 Week Amy Price MD [STAFF PHYSICIAN] - 1 Week Slim Valentine MD [STAFF PHYSICIAN] - 1 Week (alternative to jackhammer operator as you requested to schedule EGD.) Patient Instructions/Handouts: Chest Pain (DC), Noncardiac Chest Pain (DC) Activity/Diet/Wound Care/Special Instructions: Activity: As tolerated. Take breaks as needed. Diet: Heart healthy and carb consistent diet. Avoid salts, or foods with hidden salts such as canned or boxed foods and frozen dinners. Extra salt makes your heart work harder and traps the fluid in your body for longer. Special Instructions: Take all of your medications as directed and remember to keep all of your doctor's appointments and follow-up as needed. Thank you for allowing us to participate in your care, it was truly a pleasure having you for our patient!!! Discharge Disposition: HOME SELF-CARE
[2022-07-08] MEDS ORDERED: MAG HYDROX/AL HYDROX/SIMETH 30 ML, HYOSCYAMINE ELIXIR 10 ML, LIDOCAINE VISCOUS 2% 10 ML PO ONE ×3 (14:00)
[2022-07-09] MEDS ORDERED: ASPIRIN 81 MG PO SCH (09:00)
--- NOTE | 2022-07-10 13:26 | CA ---
Stress Echo Report Adelia Cedillo Age: 47 Gender: F : 1975 Exam Date: 07/08/2022 09:20 Exam Location: [facility] Ht (in): 65 Wt (lb): 148 Ordering Physician: Camilo Crow MD ([id number]) Referring Physician: JENNIFER,, Professor Of Literature: MOLLY Technologist Procedure CPT: Indication: Chest Pain ICD-9 Codes: Rhythm: Patient History: CHEST PAIN, DIFFICULTY IN BREATING, FAMILY HX OF HEART DISEASE Cardiac Medications: Medications in past 24 hours: Contrast: Stress Results Protocol: Fran Total dose(mL): Exercise Duration (min:sec): Max ST Depression (mm): Angina Score: Watts Score: METS: 11.5 Resting HR: 88 Resting BP: 104 / 80 Peak HR: 167 Peak BP: 164 / 91 Max Predicted HR: 174 96 % Max Predicted HR Target HR: 148 Double Product: [id number] Stress Summary: BP Response: Reason for Termination: Cardiac Symptoms: ECG Analysis Resting ECG: Stress ECG: Arrhythmia: Echo Analysis Resting Echo: Peak Echo Analysis: MEASUREMENTS (Male/Female) Normal Values CONCLUSIONS Patient underwent exercise stress echo with a Fran protocol treadmill stress test. Patient exercised into Stage 4 for a total of 10 minutes reaching a total of 11.5 METS. Patient's maximum heart rate was 167 which represented 95% age-predicted maximum heart rate. Stress EKG portion: At baseline patient's EKG showed normal sinus rhythm, normal axis, no significant ST or T wave abnormalities. At peak exercise, EKG showed and no significant change from baseline. Stress echo portion: 2-D echocardiogram was performed in the parasternal long, personal short, apical 2 and apical four-chamber views at rest, peak exercise and in recovery. At baseline, echocardiogram showed left ventricular ejection fraction 55% without wall motion abnormalities. With peak exercise, echocardiogram shows improvement in left ventricular ejection fraction, increase contractility, decrease in left ventricular end systolic dimension without wall motion abnormalities consistent with a normal response to exercise. Conclusions: 1. Normal EKG and echo response to exercise without evidence of inducible ischemia. 2. Good exercise capacity. Dr. Dennis Melgoza DO (Electronically Signed) Final Date: 08 July 2022 12:54
== END 2022-07-08 15:00 | disposition home or self-care (01) ==
LOC: EC 12:30 → 6NMEDSUR 18:04
PROVIDERS: ADMIT Internal Medicine; ATTEND Internal Medicine
DX: R07.89 Other chest pain (principal); E87.6 Hypokalemia; E87.20 Acidosis, unspecified; E78.00 Pure hypercholesterolemia, unspecified; F41.9 Anxiety disorder, unspecified; F32.A Depression, unspecified; I08.1 Rheumatic disorders of both mitral and tricuspid valves; I37.1 Nonrheumatic pulmonary valve insufficiency; Z90.49 Acquired absence of other specified parts of digestive tract; Z86.16 Personal history of COVID-19; Z79.899 Other long term (current) drug therapy; Z98.51 Tubal ligation status; Z80.0 Family history of malignant neoplasm of digestive organs; Z20.822 Contact with and (suspected) exposure to COVID-19
CPT/HCPCS: 96372 ×3; 99285; 36415; 94640; 94760 ×2; 93005; 93306; 93351; 85379; 83880; 80061; 80053 ×2; 80048; 83605; 83735 ×2; 84484; 85025; 85027; 85610; 85730; 87502; 87635; 71046; G0378 ×4; J1644 ×3

== ENCOUNTER → 2022-07-12 | Outpatient (CLI) | payer OTHER ==
--- NOTE | 2022-07-12 15:16 | CT ---
EXAMINATION TYPE: CT angio chest DATE OF EXAM: 07/12/2022 COMPARISON: 07/05/2022 HISTORY: 47-year-old female [id number] SOB and chest pressure TECHNIQUE: Contiguous axial scanning of the chest performed with IV Contrast, patient injected with 5 3 mL of Isovue 370. Coronal/sagittal MIP reconstructions performed. CT DLP: 197.10 mGycm Automated exposure control for dose reduction was used. FINDINGS: Heart normal size without pericardial effusion. No flattening of the interventricular septum or reflu x of contrast into the hepatic veins. Aorta normal caliber with conventional arch vessel branching anatomy. Nonspecific, prominent 1.3 cm right hilar lymph node. Probably reactive. Otherwise, no thoracic lymph adenopathy by CT size criteria. Satisfactory opacification of the pulmonary arterial system without evidence for pulmonary embolus. Mild diffuse bronchial wall thickening. No consolidation or pleural effusion. Visualized upper abdomen shows cholecystectomy clips and moderate stool. Bones: No osseous destructive process. IMPRESSION: NO EVIDENCE FOR PULMONARY EMBOLUS. MILD BRONCHIAL WALL THICKENING MAY REFLECT BRONCHITIS OR ASTHMA. C LINICALLY CORRELATE.
== END | disposition home or self-care (01) ==
LOC: RADCTMAIN 14:24
PROVIDERS: ATTEND Family Medicine
DX: J98.8 Other specified respiratory disorders (principal)
CPT/HCPCS: 71275; Q9967

== ENCOUNTER 2022-09-01 18:24 | Emergency (ER) | payer OTHER ==
[2022-09-01 18:46] VITALS: TEMP 97.9
[2022-09-01] MEDS ORDERED: ONDANSETRON 4 MG/2 ML VIAL IVP STA (21:21)
[2022-09-01] MEDS ORDERED: SODIUM CHLORIDE 0.9% 1,000 ML IV ONE (21:21)
[2022-09-01 21:43] LABS: Basophils % (A) 1 %; Eosinophils # (A) 0.2 k/uL (0-0.7); Eosinophils % (A) 3 %; HCT 38.4 % (34.0-46.0); HGB 13.6 gm/dL (11.4-16.0); Lymphocytes # (A) 1.6 k/uL (1.0-4.8); Lymphocytes % (A) 27 %; MCH 33.1 pg (25.0-35.0); MCHC 35.5 g/dL (31.0-37.0); MCV 93.2 fL (80.0-100.0); Mean Platelet Volume 7.8; Monocytes # (A) 0.3 k/uL (0-1.0); Monocytes % (A) 6 %; Neutrophils # (A) 3.8 k/uL (1.3-7.7); Neutrophils % (A) 62 %; Platelet Count 364 k/uL (150-450); RBC 4.11 m/uL (3.80-5.40); RDW 13.2 % (11.5-15.5); WBC 6.2 k/uL (3.8-10.6)
[2022-09-01] MEDS ORDERED: BUTALB/APAP/CAFF 50-325-40MG TAB PO STA (21:47)
[2022-09-01 21:55] LABS: ALT 61 U/L (4-34); AST 43 U/L (14-36); African American GFR (CKD) >90 (>60 ml/min/1.73 sqM); Albumin 3.9 g/dL (3.5-5.0); Alkaline Phosphatase 93 U/L (38-126); Anion Gap 6 mmol/L; Blood Urea Nitrogen 8 mg/dL (7-17); Calcium 8.4 mg/dL (8.4-10.2); Carbon Dioxide 27 mmol/L (22-30); Chloride 103 mmol/L (98-107); Glucose 98 mg/dL (74-99); Lipase 104 U/L (23-300); Non-African American GFR(CKD) >90 (>60 ml/min/1.73 sqM); Potassium 3.6 mmol/L (3.5-5.1); Sodium 136 mmol/L (137-145); Total Bilirubin 0.8 mg/dL (0.2-1.3); Total Protein 6.6 g/dL (6.3-8.2)
[2022-09-01 23:45] VITALS: RESP 18
--- NOTE | 2022-09-01 23:56 | ED ---
General Adult HPI - General Chief complaint: Abdominal Pain Stated complaint: Abd Pain,Diarrhea Time Seen by Provider: 09/01/22 20:55 Source: patient Mode of arrival: ambulatory Limitations: no limitations - History of Present Illness Initial comments: This is a 47-year-old female who presents emergency department for diarrhea and vomiting. The patient stated that she returned from [facility] last week and noted that she started to have diarrhea on Friday. The patient had persistent diarrhea over the last several days and did have vomiting today. The patient stated because she had consistent diarrhea without any improvement she went to be seen and evaluated in the emergency department. The patient stated that the friends that she was with on vacation did not have any similar symptoms nor is she around anybody with sick contacts. The patient denied any lightheadedness or dizziness or any acute abdominal pain. The patient did state that she had cramping in her abdomen. The patient denied any other acute pain or complaints at this time. The patient denied any blood in the stool as well as any fevers. - Related Data Home Medications Medication Instructions Recorded Confirmed Omeprazole [PriLOSEC] 20 mg PO DAILY 11/25/19 07/05/22 Butalb/APAP/Caff 50-325-40Mg 1 tab PO Q8H PRN 07/05/22 07/05/22 [Fioricet 50-325-40] traMADol HCL 50 mg PO BID PRN 07/05/22 07/05/22 Previous Rx's Medication Instructions Recorded Atorvastatin [Lipitor] 40 mg PO DAILY 30 Days #30 tablet 07/08/22 Ondansetron Odt [Zofran Odt] 4 mg PO Q8HR PRN #20 tab 09/02/22 Allergies Allergy/AdvReac Type Severity Reaction Status Date / Time No Known Allergies Allergy Unverified 09/01/22 18:46 Review of Systems ROS Statement: Those systems with pertinent positive or pertinent negative responses have been documented in the HPI. ROS Other: All systems not noted in ROS Statement are negative. Past Medical History Past Medical History: Hyperlipidemia Additional Past Medical History / Comment(s): Hx MIGRAINES, hx elevated liver enzymes, marcin shoulder prob. Upper abd pain, nausea for long time, 15 years estimated. NT lt leg w/ pain. History of Any Multi-Drug Resistant Organisms: None Reported Past Surgical History: Cholecystectomy, Orthopedic Surgery, Tubal Ligation Additional Past Surgical History / Comment(s): Marcin SHOULDER ROTATOR CUFF, LEFT KNEE arthroscopy, Past Anesthesia/Blood Transfusion Reactions: Motion Sickness Past Psychological History: Anxiety, Depression Smoking Status: Never smoker Past Alcohol Use History: Rare Past Drug Use History: None Reported - Past Family History Mother Family Medical History: Cancer Additional Family Medical History / Comment(s): RECTAL CANCER General Exam Limitations: no limitations General appearance: alert, in no apparent distress Head exam: Present: atraumatic, normocephalic Eye exam: Present: normal appearance, PERRL Pupils: Present: normal accommodation ENT exam: Present: normal exam, normal oropharynx, mucous membranes moist Neck exam: Present: normal inspection, full ROM Respiratory exam: Present: normal lung sounds bilaterally Cardiovascular Exam: Present: regular rate, normal rhythm, normal heart sounds GI/Abdominal exam: Present: soft, normal bowel sounds Extremities exam: Present: normal inspection, full ROM Back exam: Present: normal inspection, full ROM Neurological exam: Present: alert, oriented X3, CN II-XII intact Psychiatric exam: Present: normal affect, normal mood Skin exam: Present: warm, dry Course Vital Signs 09/01/22 09/01/22 09/02/22 18:44 23:45 03:21 Temperature 97.9 F Pulse Rate 75 72 63 Respiratory 20 18 18 Rate Blood Pressure 146/94 107/69 118/78 O2 Sat by Pulse 98 96 99 Oximetry Medical Decision Making - Medical Decision Making The patient was seen and evaluated emergency department. Physical exam, the patient was resting in bed without any acute distress. Vital signs admission were stable. Laboratory workup was obtained and was largely within normal limits. The patient did receive 1 L no sealing fluid as well as 4 mg of Zofran. The patient did also receive Fioricet for her reported migraine headache. All laboratory workup was within normal limits including urinalysis. The patient continued to remain stable and on reevaluation stated that her symptoms are greatly improved. There were several hour delay waiting for the patient's urinalysis as the patient wanted to wait until she could urinate so the urine could be tested. The patient likely had a viral gastroenteritis and was given a prescription for Zofran to be taken at home. The patient was advised to continue to hydrate and monitor her symptoms. Stool ova and parasites were also sent to the lab and the patient was advised that she'll be contacted if there was anything positive that he to be treated. The patient continued to remain stable and was discharged home in stable condition. - Lab Data Result diagrams: 09/01/22 21:34 09/01/22 21:34 Lab Results 09/01/22 09/01/22 09/01/22 Range/Units 21:34 21:34 21:34 WBC 6.2 (3.8-10.6) k/uL RBC 4.11 (3.80-5.40) m/uL Hgb 13.6 (11.4-16.0) gm/dL Hct 38.4 (34.0-46.0) % MCV 93.2 (80.0-100.0) fL MCH 33.1 (25.0-35.0) pg MCHC 35.5 (31.0-37.0) g/dL RDW 13.2 (11.5-15.5) % Plt Count 364 (150-450) k/uL MPV 7.8 Neutrophils % 62 % Lymphocytes % 27 % Monocytes % 6 % Eosinophils % 3 % Basophils % 1 % Neutrophils # 3.8 (1.3-7.7) k/uL Lymphocytes # 1.6 (1.0-4.8) k/uL Monocytes # 0.3 (0-1.0) k/uL Eosinophils # 0.2 (0-0.7) k/uL Basophils # 0.0 (0-0.2) k/uL Sodium 136 L (137-145) mmol/L Potassium 3.6 (3.5-5.1) mmol/L Chloride 103 (98-107) mmol/L Carbon Dioxide 27 (22-30) mmol/L Anion Gap 6 mmol/L BUN 8 (7-17) mg/dL Creatinine 0.62 (0.52-1.04) mg/dL Est GFR (CKD-EPI)AfAm >90 (>60 ml/min/1.73 sqM) Est GFR (CKD-EPI)NonAf >90 (>60 ml/min/1.73 sqM) Glucose 98 (74-99) mg/dL Plasma Lactic Acid Jose David 0.9 (0.7-2.0) mmol/L Calcium 8.4 (8.4-10.2) mg/dL Total Bilirubin 0.8 (0.2-1.3) mg/dL AST 43 H (14-36) U/L ALT 61 H (4-34) U/L Alkaline Phosphatase 93 (38-126) U/L Total Protein 6.6 (6.3-8.2) g/dL Albumin 3.9 (3.5-5.0) g/dL Lipase 104 (23-300) U/L Urine Color Urine Appearance (Clear) Urine pH (5.0-8.0) Ur Specific [place] (1.001-1.035) Urine Protein (Negative) Urine Glucose (UA) (Negative) Urine Ketones (Negative) Urine Blood (Negative) Urine Nitrite (Negative) Urine Bilirubin (Negative) Urine Urobilinogen (<2.0) mg/dL Ur Leukocyte Esterase (Negative) Urine RBC (0-5) /hpf Urine WBC (0-5) /hpf Ur Squamous Epith Cells (0-4) /hpf Urine Bacteria (None) /hpf Urine Mucus (None) /hpf Urine HCG, Qual (Not Detectd) C. difficile (EIA) Intrp (Negative) 09/02/22 09/02/22 09/02/22 Range/Units 00:01 01:21 01:21 WBC (3.8-10.6) k/uL RBC (3.80-5.40) m/uL Hgb (11.4-16.0) gm/dL Hct (34.0-46.0) % MCV (80.0-100.0) fL MCH (25.0-35.0) pg MCHC (31.0-37.0) g/dL RDW (11.5-15.5) % Plt Count (150-450) k/uL MPV Neutrophils % % Lymphocytes % % Monocytes % % Eosinophils % % Basophils % % Neutrophils # (1.3-7.7) k/uL Lymphocytes # (1.0-4.8) k/uL Monocytes # (0-1.0) k/uL Eosinophils # (0-0.7) k/uL Basophils # (0-0.2) k/uL Sodium (137-145) mmol/L Potassium (3.5-5.1) mmol/L Chloride (98-107) mmol/L Carbon Dioxide (22-30) mmol/L Anion Gap mmol/L BUN (7-17) mg/dL Creatinine (0.52-1.04) mg/dL Est GFR (CKD-EPI)AfAm (>60 ml/min/1.73 sqM) Est GFR (CKD-EPI)NonAf (>60 ml/min/1.73 sqM) Glucose (74-99) mg/dL Plasma Lactic Acid Jose David (0.7-2.0) mmol/L Calcium (8.4-10.2) mg/dL Total Bilirubin (0.2-1.3) mg/dL AST (14-36) U/L ALT (4-34) U/L Alkaline Phosphatase (38-126) U/L Total Protein (6.3-8.2) g/dL Albumin (3.5-5.0) g/dL Lipase (23-300) U/L Urine Color Yellow Urine Appearance Cloudy H (Clear) Urine pH 6.0 (5.0-8.0) Ur Specific [place]ett 1.019 (1.001-1.035) Urine Protein Trace H (Negative) Urine Glucose (UA) Negative (Negative) Urine Ketones 1+ H (Negative) Urine Blood Negative (Negative) Urine Nitrite Negative (Negative) Urine Bilirubin Negative (Negative) Urine Urobilinogen <2.0 (<2.0) mg/dL Ur Leukocyte Esterase Trace H (Negative) Urine RBC <1 (0-5) /hpf Urine WBC 2 (0-5) /hpf Ur Squamous Epith Cells 5 H (0-4) /hpf Urine Bacteria Rare H (None) /hpf Urine Mucus Few H (None) /hpf Urine HCG, Qual Not Detected (Not Detectd) C. difficile (EIA) Intrp Negative (Negative) Disposition Clinical Impression: Diarrhea, Vomiting, Gastroenteritis Disposition: HOME SELF-CARE Condition: Stable Prescriptions: Ondansetron Odt [Zofran Odt] 4 mg PO Q8HR PRN #20 tab PRN Reason: Nausea And Vomiting Is patient prescribed a controlled substance at d/c from ED?: No Referrals: Mann Sullivan DO [Primary Care Provider] - 1-2 days Time of Disposition: 03:25
[2022-09-02 01:49] LABS: Appearance,Urine Cloudy (Clear); Bacteria,Urine Rare /hpf; Bilirubin,Urine Negative (Negative); Blood,Urine Negative (Negative); Color,Urine Yellow; Glucose,Urine (UA) Negative (Negative); Ketones,Urine 1+ (Negative); Leukocyte Esterase,Urine Trace (Negative); Mucus,Urine Few /hpf; Nitrite,Urine Negative (Negative); Protein,Urine Trace (Negative); RBC,Urine <1 /hpf (0-5); Specific Gravity,Urine 1.019 (1.001-1.035); Squamous Epithelial Cell,Urine 5 /hpf (0-4); Urobilinogen,Urine <2.0 mg/dL (<2.0); WBC,Urine 2 /hpf (0-5)
[2022-09-02 03:23] VITALS: BP 118/78; PULSE 63
== END 2022-09-02 03:28 | disposition home or self-care (01) ==
LOC: EC 18:24
DX: K52.9 Noninfective gastroenteritis and colitis, unspecified (principal); R11.10 Vomiting, unspecified; F41.9 Anxiety disorder, unspecified; F32.A Depression, unspecified
CPT/HCPCS: 36415; 80053; 83605; 83690; 85025; 81001; 81025; 87324; 87045; 87046; 99284; 96374; 96361; J2405

== ENCOUNTER 2022-09-30 02:01 | Emergency (ER) | payer OTHER ==
[2022-09-30 02:14] VITALS: TEMP 97.7
[2022-09-30] MEDS ORDERED: ONDANSETRON 4 MG/2 ML VIAL IVP STA (02:56)
[2022-09-30] MEDS ORDERED: SODIUM CHLORIDE 0.9% 1,000 ML IV STA (02:56)
[2022-09-30] MEDS ORDERED: HYDROmorphone 0.5 MG/0.5 ML SYRINGE IVP STA ×2 (02:56→05:08)
--- NOTE | 2022-09-30 03:17 | ED ---
General Adult HPI - General Chief complaint: GI Bleed Stated complaint: Hemorrhoids Time Seen by Provider: 09/30/22 02:38 Source: patient, RN notes reviewed Mode of arrival: ambulatory - History of Present Illness Initial comments: 47-year-old female presents to the emergency Department with complaints of constipation, abdominal cramping, and hemorrhoid discomfort. Reports long- standing history of internal hemorrhoids. Patient states she had several episodes of diarrhea at the end of July and was put on an antidiarrheal agent. States she has had very few bowel movements since then. Reports it is not unusual for her to only have one or 2 bowel movements per week. States she had a bowel movement yesterday in which she passed 3 small solid formed stool with no blood or mucus. States today she has had the urge to defecate but has been unable to pass stool. States she spent approximately 3 hours on the commode today. She became concerned when she had a large swollen area protruding from her rectum which she describes the size of a golf ball. States that has since retracted, though she remains uncomfortable. Denies fever, chills, headache, chest pain, shortness of breath, vomiting, hematochezia, dysuria, and hematuria. - Related Data Home Medications Medication Instructions Recorded Confirmed Omeprazole [PriLOSEC] 20 mg PO DAILY 11/25/19 07/05/22 Butalb/APAP/Caff 50-325-40Mg 1 tab PO Q8H PRN 07/05/22 07/05/22 [Fioricet 50-325-40] traMADol HCL 50 mg PO BID PRN 07/05/22 07/05/22 Previous Rx's Medication Instructions Recorded Atorvastatin [Lipitor] 40 mg PO DAILY 30 Days #30 tablet 07/08/22 Ondansetron Odt [Zofran Odt] 4 mg PO Q8HR PRN #20 tab 09/02/22 Allergies Allergy/AdvReac Type Severity Reaction Status Date / Time No Known Allergies Allergy Unverified 09/30/22 02:14 Review of Systems ROS Statement: Those systems with pertinent positive or pertinent negative responses have been documented in the HPI. ROS Other: All systems not noted in ROS Statement are negative. Past Medical History Past Medical History: Hyperlipidemia Additional Past Medical History / Comment(s): Hx MIGRAINES, hx elevated liver enzymes, john shoulder prob. Upper abd pain, nausea for long time, 15 years estimated. NT lt leg w/ pain. History of Any Multi-Drug Resistant Organisms: None Reported Past Surgical History: Cholecystectomy, Orthopedic Surgery, Tubal Ligation Additional Past Surgical History / Comment(s): John SHOULDER ROTATOR CUFF, LEFT KNEE arthroscopy, Past Anesthesia/Blood Transfusion Reactions: Motion Sickness Past Psychological History: Anxiety, Depression Smoking Status: Never smoker Past Alcohol Use History: Rare Past Drug Use History: None Reported - Past Family History Mother Family Medical History: Cancer Additional Family Medical History / Comment(s): RECTAL CANCER General Exam Limitations: no limitations General appearance: alert, in no apparent distress (Well-developed, well- nourished female in no acute distress, though patient does appear uncomfortable.) Eye exam: Present: normal appearance. Absent: scleral icterus, conjunctival injection ENT exam: Present: normal exam, mucous membranes moist Respiratory exam: Present: normal lung sounds bilaterally. Absent: respiratory distress, wheezes, rales, rhonchi, stridor Cardiovascular Exam: Present: regular rate, normal rhythm, normal heart sounds. Absent: systolic murmur, diastolic murmur, rubs, gallop, clicks GI/Abdominal exam: Present: soft, normal bowel sounds. Absent: distended, tenderness, guarding, rebound, rigid Rectal exam: Present: hemorrhoids (External hemorrhoids present though are not bleeding, engorged, or thrombosed) Back exam: Absent: CVA tenderness (R), CVA tenderness (L) Neurological exam: Present: alert, oriented X3 Psychiatric exam: Present: anxious Skin exam: Present: warm, dry, intact, normal color. Absent: rash Course Vital Signs 09/30/22 09/30/22 09/30/22 02:08 03:09 05:42 Temperature 97.7 F Pulse Rate 113 H 80 72 Respiratory 18 16 18 Rate Blood Pressure 103/50 129/93 O2 Sat by Pulse 99 99 98 Oximetry - Reevaluation(s) Reevaluation #1: 09/30/22 05:00 Results reviewed and follow-up care discussed at length with patient. Discussed symptomatic management. Encouraged dietary changes. Instructed to not sit on the toilet for extended periods of time. Patient is scheduled to follow up with her PCP on Friday for further evaluation and treatment. Medical Decision Making - Medical Decision Making 47-year-old female presents to the emergency Department with complaints of bothersome hemorrhoids and constipation. Upon exam, patient appears moderately uncomfortable, but in no acute distress. Golfball size swollen area around the rectum has retracted but is concerning for possible rectal prolapse. This was discussed with patient at length. Also discussed constipation which was identified on CT and symptomatically. Encouraged to take a stool softener and fiber supplement. Patient will be discharged home and instructed to follow up with her PCP for a recheck as needed. Return parameters were discussed in detail verbalizes understanding and agrees with this plan. Attending: Rambo. Was pt. sent in by a medical professional or institution? @ -No Did you speak to anyone other than the patient for history? @ -No Did you review nursing and triage notes? @ -Yes, agree Were old charts reviewed? @ -No Differential Diagnosis? @ -Hemorrhoids, rectal prolapse, perirectal abscess, this is not meant to be an exhaustive list EKG interpreted by me (3pts min.)? @ -Not applicable X-rays interpreted by me (1pt min.)? @ -Not applicable. CT interpreted by me (1pt min.)? @ -Not applicable U/S interpreted by me (1pt. min.)? @ -Not applicable What testing was considered but not performed? (CT, X-rays, U/S, labs)? Why? @ -None What meds were considered but not given? Why? @ -Opioid pain medications considered but avoided due to constipation. Did you discuss the management of the patient with other professionals? @ -None Did you reconcile home meds? @ -No Was smoking cessation discussed for >3mins.? @ -No Was critical care preformed (if so, how long)? @ -No Were there social determinants of health that impacted care today? How? (Homelessness, low income, unemployed, alcoholism, drug addiction, transportation, low edu. Level, literacy, decrease access to med. care, fpc, rehab)? @ -No Was there de-escalation of care discussed even if they declined? (Discuss DNR or withdrawal of care, Hospice)? @ -No What co-morbidities impacted this encounter? (DM, HTN, Smoking, COPD, CAD, Cancer, CVA, Hep., AIDS, mental health diagnosis, sleep apnea, morbid obesity)? @No Was patient admitted / discharged? @ -Discharged Undiagnosed new problem with uncertain prognosis? @ -None Drug Therapy requiring intensive monitoring for toxicity (Heparin, Nitro, Insulin, Cardizem)? @ -None Were any procedures done? @ -None Diagnosis/symptom? @ -constipation Acute, or Chronic, or Acute on Chronic? @ -Acute Uncomplicated (without systemic symptoms) or Complicated (systemic symptoms)? @ -Uncomplicated Side effects of treatment? @ -None Exacerbation, Progression, or Severe Exacerbation] @ -No Poses a threat to life or bodily function? @ -No - Lab Data Result diagrams: 09/30/22 03:06 09/30/22 03:06 Lab Results 09/30/22 09/30/22 09/30/22 Range/Units 03:06 03:06 03:06 WBC 11.4 H (3.8-10.6) k/uL RBC 4.39 (3.80-5.40) m/uL Hgb 14.5 (11.4-16.0) gm/dL Hct 40.3 (34.0-46.0) % MCV 91.8 (80.0-100.0) fL MCH 33.0 (25.0-35.0) pg MCHC 35.9 (31.0-37.0) g/dL RDW 13.3 (11.5-15.5) % Plt Count 529 H (150-450) k/uL MPV 7.9 Neutrophils % 80 % Lymphocytes % 14 % Monocytes % 3 % Eosinophils % 1 % Basophils % 1 % Neutrophils # 9.1 H (1.3-7.7) k/uL Lymphocytes # 1.6 (1.0-4.8) k/uL Monocytes # 0.3 (0-1.0) k/uL Eosinophils # 0.1 (0-0.7) k/uL Basophils # 0.1 (0-0.2) k/uL PT 10.3 (9.0-12.0) sec INR 1.0 (<1.2) APTT 20.9 L (22.0-30.0) sec Sodium 137 (137-145) mmol/L Potassium 4.1 (3.5-5.1) mmol/L Chloride 104 (98-107) mmol/L Carbon Dioxide 25 (22-30) mmol/L Anion Gap 8 mmol/L BUN 14 (7-17) mg/dL Creatinine 0.92 (0.52-1.04) mg/dL Est GFR (CKD-EPI)AfAm 87 (>60 ml/min/1.73 sqM) Est GFR (CKD-EPI)NonAf 75 (>60 ml/min/1.73 sqM) Glucose 133 H (74-99) mg/dL Plasma Lactic Acid Jose David (0.7-2.0) mmol/L Calcium 9.5 (8.4-10.2) mg/dL Total Bilirubin 1.3 (0.2-1.3) mg/dL AST 55 H (14-36) U/L ALT 52 H (4-34) U/L Alkaline Phosphatase 121 (38-126) U/L Troponin I (0.000-0.034) ng/mL Total Protein 7.6 (6.3-8.2) g/dL Albumin 4.5 (3.5-5.0) g/dL 09/30/22 09/30/22 Range/Units 03:06 03:06 WBC (3.8-10.6) k/uL RBC (3.80-5.40) m/uL Hgb (11.4-16.0) gm/dL Hct (34.0-46.0) % MCV (80.0-100.0) fL MCH (25.0-35.0) pg MCHC (31.0-37.0) g/dL RDW (11.5-15.5) % Plt Count (150-450) k/uL MPV Neutrophils % % Lymphocytes % % Monocytes % % Eosinophils % % Basophils % % Neutrophils # (1.3-7.7) k/uL Lymphocytes # (1.0-4.8) k/uL Monocytes # (0-1.0) k/uL Eosinophils # (0-0.7) k/uL Basophils # (0-0.2) k/uL PT (9.0-12.0) sec INR (<1.2) APTT (22.0-30.0) sec Sodium (137-145) mmol/L Potassium (3.5-5.1) mmol/L Chloride (98-107) mmol/L Carbon Dioxide (22-30) mmol/L Anion Gap mmol/L BUN (7-17) mg/dL Creatinine (0.52-1.04) mg/dL Est GFR (CKD-EPI)AfAm (>60 ml/min/1.73 sqM) Est GFR (CKD-EPI)NonAf (>60 ml/min/1.73 sqM) Glucose (74-99) mg/dL Plasma Lactic Acid Jose David 1.6 (0.7-2.0) mmol/L Calcium (8.4-10.2) mg/dL Total Bilirubin (0.2-1.3) mg/dL AST (14-36) U/L ALT (4-34) U/L Alkaline Phosphatase (38-126) U/L Troponin I <0.012 (0.000-0.034) ng/mL Total Protein (6.3-8.2) g/dL Albumin (3.5-5.0) g/dL - Radiology Data Radiology results: report reviewed, image reviewed Interpreted by me: Per my interpretation of the CT, there is no evidence of obstructive process. CT of the abdomen and pelvis was obtained. Report was reviewed in its entirety. Impression per Dr. Ash is no evidence of renal stone or obstruction. Normal appendix. Constipation. Disposition Clinical Impression: Constipation Disposition: HOME SELF-CARE Condition: Stable Instructions (If sedation given, give patient instructions): Constipation (ED), Rectal Prolapse (ED) Additional Instructions: Your CAT scan shows evidence of constipation. Given your irregular bowel movements, I suggest taking a stool softener (colace) twice daily and increasing your intake of fibrous foods. You may consider a fiber supplement such as metamucil. Laxatives can cause diarrhea and increase cramping discomfort so avoid use. I suspect you had a prolapse of your rectum which reduced (retracted) on its own. Because of this, you are being provided with discharge instructions specific to rectal prolapse, though you did not have evidence of this upon exam. Sitz bath several times daily will help soothe rectal discomfort. May use topical cream such as anusol on external hemorrhoids. A "donut" pillow may make sitting more comfortable. Follow-up care PCP for recheck as scheduled. Return to the emergency department with any new, worsening, or concerning symptoms. Is patient prescribed a controlled substance at d/c from ED?: No Referrals: Mann Sullivan DO [Primary Care Provider] - 1-2 days Time of Disposition: 04:50
[2022-09-30 03:22] LABS: Basophils # (A) 0.1 k/uL (0-0.2); Basophils % (A) 1 %; Eosinophils # (A) 0.1 k/uL (0-0.7); Eosinophils % (A) 1 %; HCT 40.3 % (34.0-46.0); HGB 14.5 gm/dL (11.4-16.0); Lymphocytes # (A) 1.6 k/uL (1.0-4.8); Lymphocytes % (A) 14 %; MCHC 35.9 g/dL (31.0-37.0); MCV 91.8 fL (80.0-100.0); Mean Platelet Volume 7.9; Monocytes # (A) 0.3 k/uL (0-1.0); Monocytes % (A) 3 %; Neutrophils # (A) 9.1 k/uL (1.3-7.7); Neutrophils % (A) 80 %; Platelet Count 529 k/uL (150-450); RBC 4.39 m/uL (3.80-5.40); RDW 13.3 % (11.5-15.5); WBC 11.4 k/uL (3.8-10.6)
[2022-09-30 03:42] LABS: Partial Thromboplastin Time 20.9 sec (22.0-30.0); Prothrombin Time 10.3 sec (9.0-12.0)
[2022-09-30 03:45] LABS: Albumin 4.5 g/dL (3.5-5.0); Calcium 9.5 mg/dL (8.4-10.2); Potassium 4.1 mmol/L (3.5-5.1); Total Bilirubin 1.3 mg/dL (0.2-1.3); Total Protein 7.6 g/dL (6.3-8.2)
--- NOTE | 2022-09-30 03:53 | CT ---
EXAMINATION TYPE: CT abdomen pelvis wo con DATE OF EXAM: 09/30/2022 COMPARISON: None HISTORY: lower abdominal pain CT DLP: 451.6 mGycm Automated exposure control for dose reduction was used. Images obtained from the diaphragm to the floor the pelvis with no contrast. The lung bases are clear. No pleural effusion. Heart size is normal. No pericardial effusion. Liver spleen and stomach pancreas appear intact. The bile duct are not dilated. There are clips from cholecystectomy. There is no adrenal mass. Kidneys show normal size and contour. No hydronephrosis. Ureters are not di lated. No retroperitoneal adenopathy. Appendix is medial and appears normal. The bladder distends smo othly. No inguinal hernia. There is retained fecal material in the rectum. There is no mesenteric edema. No ascites or free air. No evidence of a bowel obstruction. The lumbar vertebrae have normal alignment. Posterior elements are intact. No compression fracture fa cet joints are intact. Bony pelvis is intact. The hip joints are intact. IMPRESSION: No evidence of renal stone or obstruction. Normal appendix. Constipation.
[2022-09-30 05:43] VITALS: BP 129/93; PULSE 72; RESP 18
== END 2022-09-30 05:43 | disposition home or self-care (01) ==
LOC: EC 02:01
DX: K59.00 Constipation, unspecified (principal); F41.9 Anxiety disorder, unspecified; F32.A Depression, unspecified
CPT/HCPCS: 36415; 80053; 83605; 84484; 85025; 85610; 85730; 74176; 99285; 96374; 96375; 96376; 96361; J2405; J1170

== ENCOUNTER → 2022-10-01 | Outpatient (CLI) | payer OTHER ==
--- NOTE | 2022-10-01 09:07 | US ---
EXAMINATION TYPE: US thyroid st tissue head/neck DATE OF EXAM: 10/01/2022 COMPARISON: CTA chest July 12, 2022 CLINICAL HISTORY: R13.10 DYSPHAGIA, UNSPECIFIED. dysphagia GLAND SIZE: Right Lobe: 4.6 x 0.7 x 1.3 cm Overall Parenchyma: homogenous Left Lobe: 5.5 x 1.2 x 1.1 cm Overall Parenchyma: homogeneous Isthmus Thickness: 0.2 cm NODULES RIGHT: # of nodules measured on right: 0 LEFT: # of nodules measured on left: 0 ISTHMUS: # of nodules measured in the isthmus: 0 Bilateral neck scanned, no evidence of lymphadenopathy. Homogeneous somewhat small size thyroid without discrete nodule. IMPRESSION: As above
--- NOTE | 2022-10-01 10:21 | FL ---
EXAMINATION TYPE: FL UGI air w esophagus DATE OF EXAM: 10/01/2022 COMPARISON: CT abdomen and pelvis from yesterday HISTORY: Dysphagia. Throat closing with weight loss. TECHNIQUE: A double contrast UGI study is performed. A total of 1 minute 18 seconds of fluoroscopic time was utilized during procedure and 69 images obtained. FINDINGS: Rn Orthopedic image of the abdomen deferred due to recent CT study which showed cholecystectomy cl ips and overall nonobstructive bowel gas pattern. Patient had difficulty with taste of barium. The esophagus shows satisfactory motility and emptying i nto the stomach. No proximal diverticulum. No evidence of fixed hiatal hernia or stricture noted. One episode of deep penetration which was not successful in clearing with coughing noted during study. The stomach shows satisfactory distensibility, peristalsis, and mucosal folds. No evidence of any ma ss or ulcer disease. Mild distal gastroesophageal reflux was seen during real time performance of thi s study. The duodenal bulb, sweep, and proximal small bowel loops are unremarkable. Overlying metallic umbilic al ornament is redemonstrated. IMPRESSION: Mild distal gastroesophageal reflux. No fixed hiatal hernia. One episode of deep penetrat ion during rapid drinking noted.
== END | disposition home or self-care (01) ==
LOC: RADUSWWP 08:23
PROVIDERS: ATTEND Family Medicine
DX: K21.9 Gastro-esophageal reflux disease without esophagitis (principal); R13.10 Dysphagia, unspecified
CPT/HCPCS: 74246; 76536

== ENCOUNTER → 2022-10-09 | Outpatient (CLI) | payer OTHER ==
--- NOTE | 2022-10-09 15:22 | FL ---
EXAMINATION TYPE: FL barium swallow w video DATE OF EXAM: 10/09/2022 COMPARISON: Upper GI 10/01/2022 HISTORY: Somatoform disorder, dysphasia, history of aspiration TECHNIQUE: Fluoroscopy. FINDINGS: Fluoroscopic guidance was provided for the procedure performed in conjunction with the [facility] pathology department. Please see complete report forthcoming from the Speech Pathology departmen t. Various consistencies from thin liquid to solids were administered. Fluoroscopy time 1 minute 28 seconds. Number of images: 0. No aspiration or penetration was evident. No significant pooling was observed in the vallecula. There was normal propulsion of the bolus in the oral phase. It was observed to have slow transit within the proximal esophagus. This was then evaluated in the fr ontal projection with delay of emptying of the esophagus with solid consistency. This washed down wit h thin liquids. This was not noted on the prior esophagram 10/01/2022. IMPRESSION: 1. Normal modified barium swallow. 2. Slow transit through the esophagus with solid consistencies. Note is made of complete emptying dur ing the exam.
== END | disposition home or self-care (01) ==
LOC: RADFLMAIN 11:10
PROVIDERS: ATTEND Family Medicine
DX: F45.8 Other somatoform disorders (principal)
CPT/HCPCS: 74230

== ENCOUNTER 2023-09-03 02:55 | Emergency (ER) | payer OTHER ==
[2023-09-03 03:03] VITALS: RESP 18; TEMP 98.4
--- NOTE | 2023-09-03 03:14 | ED ---
Chest Pain HPI - General Chief Complaint: Chest Pain Stated Complaint: Chest pain Time Seen by Provider: 09/03/23 03:04 Source: patient, RN notes reviewed, old records reviewed Mode of arrival: wheelchair Limitations: no limitations - History of Present Illness Initial Comments: This is a 48-year-old female to the emergency department for evaluation of abdominal pain chest pain today. Patient has chronic history of similar pain in symptoms. Patient is very anxious today due to diagnosis her mom recently received. Pain symptoms are chronic in nature she was a little bit more concerned with left arm numbness and tingling MD Complaint: chest pain -: days(s) Onset: during rest, during exertion Pain Location: substernal, left chest Pain Radiation: LUE Severity: mild, moderate Severity scale (1-10): 6 Quality: dull Consistency: constant Improves With: nothing Worsens With: nothing Anginal Symptoms: nausea, dyspnea, sense of impending doom Other Symptoms: cough Treatments Prior to Arrival: none - Related Data Home Medications Medication Instructions Recorded Confirmed Omeprazole [PriLOSEC] 20 mg PO DAILY 11/25/19 07/05/22 Butalb/APAP/Caff 50-325-40Mg 1 tab PO Q8H PRN 07/05/22 07/05/22 [Fioricet 50-325-40] traMADol HCL 50 mg PO BID PRN 07/05/22 07/05/22 Previous Rx's Medication Instructions Recorded Atorvastatin [Lipitor] 40 mg PO DAILY 30 Days #30 tablet 07/08/22 Ondansetron Odt [Zofran Odt] 4 mg PO Q8HR PRN #20 tab 09/02/22 Allergies Allergy/AdvReac Type Severity Reaction Status Date / Time No Known Allergies Allergy Unverified 09/30/22 02:14 Review of Systems ROS Statement: Those systems with pertinent positive or pertinent negative responses have been documented in the HPI. ROS Other: All systems not noted in ROS Statement are negative. EKG Findings - EKG Comments: EKG Findings:: EKG is sinus 66 [place] 121 QRS 91 QTC 398 - EKG Results: EKG: interpreted by ARAM Past Medical History Past Medical History: Hyperlipidemia Additional Past Medical History / Comment(s): Hx MIGRAINES, hx elevated liver enzymes, john shoulder prob. Upper abd pain, nausea for long time, 15 years estimated. NT lt leg w/ pain. History of Any Multi-Drug Resistant Organisms: None Reported Past Surgical History: Cholecystectomy, Orthopedic Surgery, Tubal Ligation Additional Past Surgical History / Comment(s): John SHOULDER ROTATOR CUFF, LEFT KNEE arthroscopy, Past Anesthesia/Blood Transfusion Reactions: Motion Sickness Past Psychological History: Anxiety, Depression Smoking Status: Never smoker Past Alcohol Use History: Rare Past Drug Use History: None Reported - Past Family History Mother Family Medical History: Cancer Additional Family Medical History / Comment(s): RECTAL CANCER General Exam Limitations: no limitations General appearance: alert, in no apparent distress, anxious Head exam: Present: atraumatic, normocephalic, normal inspection Eye exam: Present: normal appearance, PERRL, EOMI. Absent: scleral icterus, conjunctival injection, periorbital swelling ENT exam: Present: normal exam, mucous membranes moist Neck exam: Present: normal inspection. Absent: tenderness, meningismus, lymphadenopathy Respiratory exam: Present: normal lung sounds bilaterally. Absent: respiratory distress, wheezes, rales, rhonchi, stridor Cardiovascular Exam: Present: regular rate, normal rhythm, normal heart sounds. Absent: systolic murmur, diastolic murmur, rubs, gallop, clicks GI/Abdominal exam: Present: soft, normal bowel sounds. Absent: distended, tenderness, guarding, rebound, rigid Extremities exam: Present: normal inspection, full ROM, normal capillary refill. Absent: tenderness, pedal edema, joint swelling, calf tenderness Back exam: Present: normal inspection Neurological exam: Present: alert, oriented X3, CN II-XII intact Psychiatric exam: Present: normal affect, normal mood Skin exam: Present: warm, dry, intact, normal color. Absent: rash Course Vital Signs 09/03/23 09/03/23 09/03/23 02:56 04:30 06:00 Temperature 98.4 F Pulse Rate 84 64 66 Respiratory 18 18 18 Rate Blood Pressure 113/83 102/73 121/71 O2 Sat by Pulse 100 98 98 Oximetry 09/03/23 10:09 Temperature Pulse Rate 61 Respiratory 18 Rate Blood Pressure 101/66 O2 Sat by Pulse Oximetry - Reevaluation(s) Reevaluation #1: 09/03/23 04:39 Medical records reviewed Reevaluation #2: Patient has no current chest pain here in the ER Reevaluation #3: Patient informed results and questions answered Reevaluation #4: 09/03/23 04:39 Was pt. sent in by a medical professional or institution (JAIME Hernandez, [employer], urgent care, hospital, or fci...) When possible be specific @ -no Did you speak to anyone other than the patient for history (EMS, parent, family, police, friend...)? What history was obtained from this source @ -no Did you review nursing and triage notes (agree or disagree)? Why? @ -agree Are old charts reviewed (outside hosp., previous admission, EMS record, old EKG, old radiological studies, urgent care reports/EKG's, fci records)? Report findings @ -yes Differential Diagnosis (chest pain, altered mental status, abdominal pain women, abdominal pain men, vaginal bleeding, weakness, fever, dyspnea, syncope, headache, dizziness, GI bleed, back pain, seizure, CVA, palpatations, mental health, musculoskeletal)? @ -prior EKG interpreted by me (3pts min.). @ -yes X-rays interpreted by me (1pt min.). @ -yes CT interpreted by me (1pt min.). @ -no U/S interpreted by me (1pt. min.). @ -no What testing was considered but not performed or refused? (CT, X-rays, U/S, labs)? Why? @ -none What meds were considered but not given or refused? Why? @ -none Did you discuss the management of the patient with other professionals (professionals i.e. JAIME Hernandez, [employer] MANAGER, lab, RT, psych nurse, social media executive, mechanical manager, teacher, boating safety officer, manager of case)? Give summary @ -no Was smoking cessation discussed for >3mins.? @ -no Was critical care preformed (if so, how long)? @ -no Were there social determinants of health that impacted care today? How? (Homelessness, low income, unemployed, alcoholism, drug addiction, transportation, low edu. Level, literacy, decrease access to med. care, nursing home, rehab)? @ -none Was there de-escalation of care discussed even if they declined (Discuss DNR or withdrawal of care, Hospice)? DNR status @ -no What co-morbidities impacted this encounter? (DM, HTN, Smoking, COPD, CAD, Cancer, CVA, ARF, Chemo, Hep., AIDS, mental health diagnosis, sleep apnea, morbid obesity)? @ -none Was patient admitted / discharged? Hospital course, mention meds given and route, prescriptions, significant lab abnormalities, going to OR and other pertinent info. @ - 48, patient can be discharged home female to the emergency department for evaluation, patient is safe for evaluation regards to chest pain. Normal chest x-ray normal EKG Discharged Undiagnosed new problem with uncertain prognosis? @ -no Drug Therapy requiring intensive monitoring for toxicity (Heparin, Nitro, Insulin, Cardizem)? @ -no Were any procedures done? @ -no Diagnosis/symptom? @ -Chest pain Acute, or Chronic, or Acute on Chronic? @ -Acute Uncomplicated (without systemic symptoms) or Complicated (systemic symptoms)? @ -Complicated Side effects of treatment? @ -no Exacerbation, Progression, or Severe Exacerbation? @ -exacerbation Poses a threat to life or bodily function? How? (Chest pain, [place], [place], pneumonia, PE, COPD, DKA, ARF, appy, cholecystitis, CVA, Diverticulitis, Homicidal, Suicidal, threat to staff... and all critical care pts) @ -no Reevaluation #5: 09/03/23 04:39 Differential Chest Pain: Stable Angina, Unstable Angina, STEMI, NSTEMI Aortic Dissection, Pneumothorax, Musculoskeletal, Esophageal Spasm GERD, Cholecystitis, Pancreatitis, Zoster, this is not meant to be an all-inclusive list. Chest Pain [facility] 48, patient can be discharged home female to the emergency department for evaluation, patient is safe for evaluation regards to chest pain. Normal chest x-ray normal EKG Disposition Clinical Impression: Chest pain Disposition: HOME SELF-CARE Condition: Good Instructions (If sedation given, give patient instructions): Chest Pain (ED) Is patient prescribed a controlled substance at d/c from ED?: No Referrals: Mann Sullivan DO [Primary Care Provider] - 1-2 days Time of Disposition: 05:30
[2023-09-03 03:47] LABS: ALT 16 U/L (4-34); AST 21 U/L (14-36); African American GFR (CKD) >90 (>60 ml/min/1.73 sqM); Albumin 4.7 g/dL (3.5-5.0); Alkaline Phosphatase 85 U/L (38-126); Anion Gap 14 mmol/L; Blood Urea Nitrogen 12 mg/dL (7-17); Calcium 9.8 mg/dL (8.4-10.2); Carbon Dioxide 22 mmol/L (22-30); Chloride 102 mmol/L (98-107); Glucose 115 mg/dL (74-99); Lipase 298 U/L (23-300); Non-African American GFR(CKD) >90 (>60 ml/min/1.73 sqM); Potassium 3.6 mmol/L (3.5-5.1); Sodium 138 mmol/L (137-145); Total Bilirubin 0.8 mg/dL (0.2-1.3); Total Protein 8.1 g/dL (6.3-8.2)
[2023-09-03 03:52] LABS: Basophils # (A) 0.1 k/uL (0-0.2); Basophils % (A) 1 %; Eosinophils # (A) 0.2 k/uL (0-0.7); Eosinophils % (A) 3 %; HCT 47.4 % (34.0-46.0); Lymphocytes # (A) 2.6 k/uL (1.0-4.8); Lymphocytes % (A) 35 %; MCH 32.3 pg (25.0-35.0); MCHC 33.8 g/dL (31.0-37.0); MCV 95.7 fL (80.0-100.0); Mean Platelet Volume 8.2; Monocytes # (A) 0.3 k/uL (0-1.0); Monocytes % (A) 5 %; Neutrophils % (A) 55 %; Platelet Count 405 k/uL (150-450); RBC 4.96 m/uL (3.80-5.40); RDW 12.5 % (11.5-15.5); WBC 7.3 k/uL (3.8-10.6)
[2023-09-03 03:55] LABS: NT-Pro-B-Type Natriuretic Pept <20 pg/mL
[2023-09-03] MEDS ORDERED: MAG HYDROX/AL HYDROX/SIMETH 30 ML, HYOSCYAMINE ELIXIR 10 ML PO STA ×2 (04:56)
[2023-09-03] MEDS ORDERED: HYDROmorphone 0.5 MG/0.5 ML SYRINGE IVP STA (04:56)
[2023-09-03] MEDS ORDERED: PROCHLORPERAZINE INJ 10 MG/2 ML VIAL IVP STA (04:56)
[2023-09-03] MEDS ORDERED: diphenhydrAMINE 50 MG/ML 1 ML VIAL IVP STA (04:56)
--- NOTE | 2023-09-03 05:29 | XR ---
EXAMINATION TYPE: XR chest 1V DATE OF EXAM: 09/03/2023 COMPARISON: CTA chest July 12, 2022. 2 view chest x-ray July 05, 2022 HISTORY: Upper gastric/chest pain into left shoulder TECHNIQUE: Single frontal view of the chest is obtained. FINDINGS: There is no suspicious focal air space opacity, pleural effusion, or pneumothorax seen. T he cardiac silhouette size is stable and within normal limits. The osseous structures are intact. O verlying EKG leads are now present. IMPRESSION: No acute process. No significant change from prior.
[2023-09-03 06:35] LABS: Bacteria,Urine Rare /hpf; Hyaline Casts,Urine 8 /lpf (0-2); Mucus,Urine Many /hpf; RBC,Urine 2 /hpf (0-5); Squamous Epithelial Cell,Urine 7 /hpf (0-4); WBC,Urine 17 /hpf (0-5)
[2023-09-03 06:42] LABS: Appearance,Urine Clear (Clear); Color,Urine y; Specific Gravity,Urine 1.019 (1.001-1.035)
[2023-09-03 06:43] LABS: Bilirubin,Urine Negative (Negative); Blood,Urine Negative (Negative); Glucose,Urine (UA) Negative (Negative); Ketones,Urine Trace (Negative); Leukocyte Esterase,Urine Large (Negative); Nitrite,Urine Negative (Negative); Protein,Urine Trace (Negative); Urobilinogen,Urine <2.0 mg/dL (<2.0)
[2023-09-03 10:18] VITALS: BP 101/66; PULSE 61
== END 2023-09-03 10:10 | disposition home or self-care (01) ==
LOC: EC 02:55
DX: R07.89 Other chest pain (principal); Z86.59 Personal history of other mental and behavioral disorders
CPT/HCPCS: 36415; 93005; 83880; 80053; 83690; 83735; 84484; 85025; 81001; 71046; 99285; 96374; 96375; J1200; J0780

== ENCOUNTER 2023-10-19 18:51 | Emergency (ER) | payer OTHER ==
[2023-10-19] MEDS ORDERED: HYDROmorphone 1 MG/ML 1 ML SYRINGE IVP STA (19:21)
[2023-10-19] MEDS ORDERED: ONDANSETRON 4 MG/2 ML VIAL IVP STA (19:21)
--- NOTE | 2023-10-19 19:55 | ED ---
Back Pain HPI - General Chief Complaint: Back Pain/Injury Stated Complaint: Back/Side Pain Time Seen by Provider: 10/19/23 19:06 Source: patient, family Limitations: no limitations - History of Present Illness Initial Comments: 48-year-old female history of chronic pain and nausea presenting with multiple complaints. Patient states that she is having bilateral lower back and flank pain which wraps around to the abdomen. This has been ongoing for 1 month. She has been followed by her PCP and neurologist for this issue. This pain has been worsening recently. She also admits to exertional dyspnea, it appears that she was seen here for exertional dyspnea back in 2021 and had a comprehensive workup including a normal echo and stress echo. When asked if she has chest pain she reports "I've always had chest pain", has received thorough work-up in the past. No loss of bowel or bladder control or saddle paresthesia. No dysuria or hematuria. Denies injury or trauma. No radiculopathy symptoms. No fevers. No vomiting. - Related Data Home Medications Medication Instructions Recorded Confirmed Omeprazole [PriLOSEC] 20 mg PO DAILY 11/25/19 07/05/22 Butalb/APAP/Caff 50-325-40Mg 1 tab PO Q8H PRN 07/05/22 07/05/22 [Fioricet 50-325-40] traMADol HCL 50 mg PO BID PRN 07/05/22 07/05/22 Previous Rx's Medication Instructions Recorded Atorvastatin [Lipitor] 40 mg PO DAILY 30 Days #30 tablet 07/08/22 Ondansetron Odt [Zofran Odt] 4 mg PO Q8HR PRN #20 tab 09/02/22 Allergies Allergy/AdvReac Type Severity Reaction Status Date / Time No Known Allergies Allergy Unverified 09/30/22 02:14 Review of Systems ROS Statement: Those systems with pertinent positive or pertinent negative responses have been documented in the HPI. ROS Other: All systems not noted in ROS Statement are negative. Past Medical History Past Medical History: Hyperlipidemia Additional Past Medical History / Comment(s): Hx MIGRAINES, hx elevated liver enzymes, john shoulder prob. Upper abd pain, nausea for long time, 15 years barb mated. NT lt leg w/ pain. History of Any Multi-Drug Resistant Organisms: None Reported Past Surgical History: Cholecystectomy, Orthopedic Surgery, Tubal Ligation Additional Past Surgical History / Comment(s): John SHOULDER ROTATOR CUFF, LEFT KNEE arthroscopy, Past Anesthesia/Blood Transfusion Reactions: Motion Sickness Past Psychological History: Anxiety, Depression Smoking Status: Never smoker Past Alcohol Use History: Rare Past Drug Use History: None Reported - Past Family History Mother Family Medical History: Cancer Additional Family Medical History / Comment(s): RECTAL CANCER General Exam Limitations: no limitations General appearance: alert, anxious Head exam: Present: atraumatic, normocephalic Eye exam: Present: normal appearance, EOMI Neck exam: Present: normal inspection Respiratory exam: Present: normal lung sounds bilaterally. Absent: respiratory distress, wheezes, rales, rhonchi, stridor Cardiovascular Exam: Present: regular rate, normal rhythm, normal heart sounds. Absent: systolic murmur, diastolic murmur, rubs, gallop, clicks GI/Abdominal exam: Present: soft, tenderness (nonlocalized). Absent: distended, guarding, rebound, rigid Back exam: Present: normal inspection, tenderness (non-localized) Neurological exam: Present: alert, oriented X3 Psychiatric exam: Present: anxious Skin exam: Present: warm, dry Course Vital Signs 10/19/23 10/19/23 10/19/23 19:00 20:57 22:39 Temperature 97 F L Pulse Rate 100 64 59 L Respiratory 20 17 17 Rate Blood Pressure 118/78 125/90 108/81 O2 Sat by Pulse 99 99 100 Oximetry 10/19/23 10/20/23 10/20/23 23:25 00:03 00:43 Temperature Pulse Rate 80 81 55 L Respiratory 17 17 17 Rate Blood Pressure 107/80 112/79 103/75 O2 Sat by Pulse 98 95 99 Oximetry 10/20/23 01:18 Temperature 98.0 F Pulse Rate 75 Respiratory 17 Rate Blood Pressure 94/65 O2 Sat by Pulse 98 Oximetry Medical Decision Making - Medical Decision Making Was pt. sent in by a medical professional or institution (Dr. PA, [employer], urgent care, hospital, or longterm...) When possible be specific @ -No Did you speak to anyone other than the patient for history (EMS, parent, family, police, friend...)? What history was obtained from this source @ -No Did you review nursing and triage notes (agree or disagree)? Why? @ -I reviewed and agree with nursing and triage notes Were old charts reviewed (outside hosp., previous admission, EMS record, old EKG, old radiological studies, urgent care reports/EKG's, longterm records)? Report findings @ -Previous admissions were reviewed including echocardiogram and stress echo Differential Diagnosis (chest pain, altered mental status, abdominal pain women, abdominal pain men, vaginal bleeding, weakness, fever, dyspnea, syncope, headache, dizziness, GI bleed, back pain, seizure, CVA, palpatations, mental health, musculoskeletal)? @ - MDM Differential Back Pain: Strain, zoster, cauda equina syndrome, epidural abscess, vertebral osteomyelitis, discitis, fracture, subluxation, disc herniation, DJD, spinal stenosis, dissection, AAA, pancreatitis, peptic ulcer disease, pyelonephritis, kidney stone this is not meant to be an all-inclusive list. EKG interpreted by me (3pts min.). @ -EKG shows sinus rhythm ventricular rate 60. [place] interval 125. QRS 92. QT 393. QTC 394. X-rays interpreted by me (1pt min.). @ -X-ray shows no acute cardiopulmonary process CT interpreted by me (1pt min.). @ -None done U/S interpreted by me (1pt. min.). @ -None done What testing was considered but not performed or refused? (CT, X-rays, U/S, labs)? Why? @ -None What meds were considered but not given or refused? Why? @ -None Did you discuss the management of the patient with other professionals (professionals i.e. , PA, [employer], lab, RT, psych nurse, secondary social studies teacher, fiberglass product tester, teacher, patient transport officer, bilingual case manager)? Give summary @ -No Was smoking cessation discussed for >3mins.? @ -No Was critical care preformed (if so, how long)? @ -No Were there social determinants of health that impacted care today? How? (Homelessness, low income, unemployed, alcoholism, drug addiction, transportation, low edu. Level, literacy, decrease access to med. care, penitentiary, rehab)? @ -No Was there de-escalation of care discussed even if they declined (Discuss DNR or withdrawal of care, Hospice)? DNR status @ -No What co-morbidities impacted this encounter? (DM, HTN, Smoking, COPD, CAD, Cancer, CVA, ARF, Chemo, Hep., AIDS, mental health diagnosis, sleep apnea, morbid obesity)? @ -None Was patient admitted / discharged? Hospital course, mention meds given and route, prescriptions, significant lab abnormalities, going to OR and other pertinent info. @ -48-year-old female presenting with chief complaint of back pain. Patient has had chronic pain for which she sees her PCP and neurology. No new injury or trauma. No red flag symptoms. This pain is along the entirety of the back. On exam there is no localization of the pain. Patient appears quite anxious on exam. She is provided with pain medication and Ativan for anxiety. Lab work shows no leukocytosis or anemia. Negative d-dimer and troponin. EKG shows sinus rhythm. UA pending shows signs of contamination, no urinary symptoms. Chest x-ray shows no acute cardiopulmonary process. Patient has had previous admission for exertional dyspnea, she was admitted by cardiology and found to have a normal echo and normal stress echo. On reassessment patient reports resolution of her symptoms. She is instructed to follow-up with her PCP and neurologist. Follow-up with PCP. Report back to ER with any new or worsening symptoms. Discussed return parameters and answered all questions. Patient conveyed verbal understanding and agreed to the plan. I discussed this case in detail with my attending Dr. May Undiagnosed new problem with uncertain prognosis? @ -No Drug Therapy requiring intensive monitoring for toxicity (Heparin, Nitro, Insulin, Cardizem)? @ -No Were any procedures done? @ -No Diagnosis/symptom? @ -Back pain Acute, or Chronic, or Acute on Chronic? @ -Acute Uncomplicated (without systemic symptoms) or Complicated (systemic symptoms)? @ -Uncomplicated Side effects of treatment? @ -No Exacerbation, Progression, or Severe Exacerbation? @ -No Poses a threat to life or bodily function? How? (Chest pain, [place], [place], pneumonia, PE, COPD, DKA, ARF, appy, cholecystitis, CVA, Diverticulitis, Homicidal, Suicidal, threat to staff... and all critical care pts) @ -Low likelihood - Lab Data Result diagrams: 10/19/23 20:02 10/19/23 20:02 Lab Results 10/19/23 10/19/23 10/19/23 Range/Units 20:02 20:02 20:02 WBC 7.3 (3.8-10.6) k/uL RBC 4.92 (3.80-5.40) m/uL Hgb 15.9 (11.4-16.0) gm/dL Hct 46.8 H (34.0-46.0) % MCV 95.2 (80.0-100.0) fL MCH 32.3 (25.0-35.0) pg MCHC 34.0 (31.0-37.0) g/dL RDW 12.8 (11.5-15.5) % Plt Count 505 H (150-450) k/uL MPV 7.5 Neutrophils % 50 % Lymphocytes % 41 % Monocytes % 5 % Eosinophils % 1 % Basophils % 1 % Neutrophils # 3.7 (1.3-7.7) k/uL Lymphocytes # 3.0 (1.0-4.8) k/uL Monocytes # 0.3 (0-1.0) k/uL Eosinophils # 0.1 (0-0.7) k/uL Basophils # 0.1 (0-0.2) k/uL D-Dimer 0.19 (<0.60) mg/L FEU Sodium 136 L (137-145) mmol/L Potassium 4.1 (3.5-5.1) mmol/L Chloride 104 (98-107) mmol/L Carbon Dioxide 24 (22-30) mmol/L Anion Gap 8 mmol/L BUN 12 (7-17) mg/dL Creatinine 0.80 (0.52-1.04) mg/dL Est GFR (CKD-EPI)AfAm >90 (>60 ml/min/1.73 sqM) Est GFR (CKD-EPI)NonAf 88 (>60 ml/min/1.73 sqM) Glucose 92 (74-99) mg/dL Calcium 9.5 (8.4-10.2) mg/dL Total Bilirubin 0.8 (0.2-1.3) mg/dL AST 25 (14-36) U/L ALT 18 (4-34) U/L Alkaline Phosphatase 87 (38-126) U/L Troponin I (0.000-0.034) ng/mL Total Protein 8.2 (6.3-8.2) g/dL Albumin 4.8 (3.5-5.0) g/dL Urine Color Urine Appearance (Clear) Urine pH (5.0-8.0) Ur Specific [place] (1.001-1.035) Urine Protein (Negative) Urine Glucose (UA) (Negative) Urine Ketones (Negative) Urine Blood (Negative) Urine Nitrite (Negative) Urine Bilirubin (Negative) Urine Urobilinogen (<2.0) mg/dL Ur Leukocyte Esterase (Negative) Urine RBC (0-5) /hpf Urine WBC (0-5) /hpf Ur Squamous Epith Cells (0-4) /hpf Urine Mucus (None) /hpf 10/19/23 10/19/23 Range/Units 20:02 23:59 WBC (3.8-10.6) k/uL RBC (3.80-5.40) m/uL Hgb (11.4-16.0) gm/dL Hct (34.0-46.0) % MCV (80.0-100.0) fL MCH (25.0-35.0) pg MCHC (31.0-37.0) g/dL RDW (11.5-15.5) % Plt Count (150-450) k/uL MPV Neutrophils % % Lymphocytes % % Monocytes % % Eosinophils % % Basophils % % Neutrophils # (1.3-7.7) k/uL Lymphocytes # (1.0-4.8) k/uL Monocytes # (0-1.0) k/uL Eosinophils # (0-0.7) k/uL Basophils # (0-0.2) k/uL D-Dimer (<0.60) mg/L FEU Sodium (137-145) mmol/L Potassium (3.5-5.1) mmol/L Chloride (98-107) mmol/L Carbon Dioxide (22-30) mmol/L Anion Gap mmol/L BUN (7-17) mg/dL Creatinine (0.52-1.04) mg/dL Est GFR (CKD-EPI)AfAm (>60 ml/min/1.73 sqM) Est GFR (CKD-EPI)NonAf (>60 ml/min/1.73 sqM) Glucose (74-99) mg/dL Calcium (8.4-10.2) mg/dL Total Bilirubin (0.2-1.3) mg/dL AST (14-36) U/L ALT (4-34) U/L Alkaline Phosphatase (38-126) U/L Troponin I <0.012 (0.000-0.034) ng/mL Total Protein (6.3-8.2) g/dL Albumin (3.5-5.0) g/dL Urine Color Yellow Urine Appearance Cloudy H (Clear) Urine pH 5.5 (5.0-8.0) Ur Specific [place] 1.033 (1.001-1.035) Urine Protein Trace H (Negative) Urine Glucose (UA) Negative (Negative) Urine Ketones Trace H (Negative) Urine Blood Negative (Negative) Urine Nitrite Negative (Negative) Urine Bilirubin Negative (Negative) Urine Urobilinogen 2.0 (<2.0) mg/dL Ur Leukocyte Esterase Negative (Negative) Urine RBC 4 (0-5) /hpf Urine WBC 8 H (0-5) /hpf Ur Squamous Epith Cells 6 H (0-4) /hpf Urine Mucus Many H (None) /hpf Disposition Clinical Impression: Mechanical back pain Disposition: HOME SELF-CARE Condition: Good Instructions (If sedation given, give patient instructions): Acute Low Back Pain (ED) Additional Instructions: Follow-up with PCP and neurologist. Report back to ER with any new or worsening symptoms. Is patient prescribed a controlled substance at d/c from ED?: No Referrals: Mann Sullivan DO [Primary Care Provider] - 1-2 days Barron Mckeon MD [Medical Doctor] - 1-2 days Time of Disposition: 01:05
[2023-10-19 20:13] LABS: Basophils # (A) 0.1 k/uL (0-0.2); Basophils % (A) 1 %; Eosinophils # (A) 0.1 k/uL (0-0.7); Eosinophils % (A) 1 %; HCT 46.8 % (34.0-46.0); HGB 15.9 gm/dL (11.4-16.0); Lymphocytes % (A) 41 %; MCH 32.3 pg (25.0-35.0); MCV 95.2 fL (80.0-100.0); Mean Platelet Volume 7.5; Monocytes # (A) 0.3 k/uL (0-1.0); Monocytes % (A) 5 %; Neutrophils # (A) 3.7 k/uL (1.3-7.7); Neutrophils % (A) 50 %; Platelet Count 505 k/uL (150-450); RBC 4.92 m/uL (3.80-5.40); RDW 12.8 % (11.5-15.5); WBC 7.3 k/uL (3.8-10.6)
[2023-10-19] MEDS ORDERED: LORazepam 2 MG/ML INJ IV STA (20:42)
[2023-10-19 20:48] LABS: ALT 18 U/L (4-34); AST 25 U/L (14-36); African American GFR (CKD) >90 (>60 ml/min/1.73 sqM); Albumin 4.8 g/dL (3.5-5.0); Alkaline Phosphatase 87 U/L (38-126); Anion Gap 8 mmol/L; Blood Urea Nitrogen 12 mg/dL (7-17); Calcium 9.5 mg/dL (8.4-10.2); Carbon Dioxide 24 mmol/L (22-30); Chloride 104 mmol/L (98-107); Glucose 92 mg/dL (74-99); Non-African American GFR(CKD) 88 (>60 ml/min/1.73 sqM); Potassium 4.1 mmol/L (3.5-5.1); Sodium 136 mmol/L (137-145); Total Bilirubin 0.8 mg/dL (0.2-1.3); Total Protein 8.2 g/dL (6.3-8.2)
[2023-10-19 21:06] VITALS: RESP 17
[2023-10-19] MEDS ORDERED: SODIUM CHLORIDE 0.9% 500 ML 500 ML IV ONE (22:46)
[2023-10-20 00:10] LABS: Appearance,Urine Cloudy (Clear); Bilirubin,Urine Negative (Negative); Blood,Urine Negative (Negative); Color,Urine Yellow; Glucose,Urine (UA) Negative (Negative); Ketones,Urine Trace (Negative); Leukocyte Esterase,Urine Negative (Negative); Mucus,Urine Many /hpf; Nitrite,Urine Negative (Negative); PH, Urine 5.5 (5.0-8.0); Protein,Urine Trace (Negative); RBC,Urine 4 /hpf (0-5); Specific Gravity,Urine 1.033 (1.001-1.035); Squamous Epithelial Cell,Urine 6 /hpf (0-4); WBC,Urine 8 /hpf (0-5)
[2023-10-20 01:34] VITALS: BP 94/65; PULSE 75; TEMP 98
--- NOTE | 2023-10-20 01:37 | XR ---
EXAMINATION TYPE: XR chest 2V DATE OF EXAM: 10/19/2023 8:09 PM CLINICAL INDICATION:Female, 48 years old with history of SOB; [facility] COMPARISON: 09/03/2023 TECHNIQUE: XR chest 2V. Frontal and lateral views of the chest.. FINDINGS: Lines/Tubes/Devices: EKG leads overlie the chest. No indwelling lines are seen. Oxygen tubing. Heart/mediastinum: Heart size is normal. Mediastinum appears normal. Pulmonary vascularity: Not increased, Lungs/Pleura: There is no evidence of pleural effusion, focal consolidation, or pneumothorax. Musculoskeletal: No acute osseous abnormality demonstrated in the limits of the exam. Mild degenerat santo changes of the spine and shoulders. Other findings: None. IMPRESSION: No acute cardiopulmonary abnormality.
== END 2023-10-20 01:19 | disposition home or self-care (01) ==
LOC: EC 18:51
DX: M54.50 Low back pain, unspecified (principal); Z86.59 Personal history of other mental and behavioral disorders; Z90.49 Acquired absence of other specified parts of digestive tract
CPT/HCPCS: 36415; 93005; 85379; 80053; 84484; 85025; 81001; 71046; 99284; 96374; 96375 ×2; J2060; J2405; J1170

== ENCOUNTER 2024-01-25 23:35 | Observation (INO) | payer OTHER ==
[2024-01-26 00:24] LABS: Glucose,Whole Blood 101 mg/dL (70-110)
[2024-01-26 00:38] LABS: Basophils # (A) 0.1 k/uL (0-0.2); Basophils % (A) 1 %; Eosinophils # (A) 0.2 k/uL (0-0.7); Eosinophils % (A) 2 %; HCT 46.6 % (34.0-46.0); HGB 15.2 gm/dL (11.4-16.0); Lymphocytes # (A) 2.8 k/uL (1.0-4.8); Lymphocytes % (A) 34 %; MCH 30.7 pg (25.0-35.0); MCHC 32.7 g/dL (31.0-37.0); MCV 93.8 fL (80.0-100.0); Mean Platelet Volume 7.6; Monocytes # (A) 0.4 k/uL (0-1.0); Monocytes % (A) 5 %; Neutrophils # (A) 4.8 k/uL (1.3-7.7); Neutrophils % (A) 57 %; Platelet Count 439 k/uL (150-450); RBC 4.97 m/uL (3.80-5.40); RDW 11.8 % (11.5-15.5); WBC 8.3 k/uL (3.8-10.6)
[2024-01-26 00:47] LABS: INR 0.9 (<1.2); Partial Thromboplastin Time 24.8 sec (22.0-30.0)
[2024-01-26 01:08] LABS: ALT 16 U/L (4-34); AST 23 U/L (14-36); African American GFR (CKD) >90 (>60 ml/min/1.73 sqM); Albumin 4.3 g/dL (3.5-5.0); Alcohol <10 mg/dL; Alkaline Phosphatase 99 U/L (38-126); Anion Gap 10 mmol/L; Blood Urea Nitrogen 10 mg/dL (7-17); Calcium 9.6 mg/dL (8.4-10.2); Carbon Dioxide 25 mmol/L (22-30); Chloride 103 mmol/L (98-107); Creatine Kinase 53 U/L (30-135); Glucose 99 mg/dL (74-99); Non-African American GFR(CKD) 81 (>60 ml/min/1.73 sqM); Potassium 3.8 mmol/L (3.5-5.1); Sodium 138 mmol/L (137-145); Total Bilirubin 0.7 mg/dL (0.2-1.3); Total Protein 7.5 g/dL (6.3-8.2)
--- NOTE | 2024-01-26 01:44 | CT ---
EXAM: CT Head Without Intravenous Contrast CLINICAL HISTORY: ITS.REASON CT Reason: Neuro deficit, acute, stroke suspected TECHNIQUE: Axial computed tomography images of the head/brain without intravenous contrast. CTDI is 48.8 mGy and DLP is 1087.9 mGy-cm. This CT exam was performed using one or more of the following dose reduction techniques: automated exposure control, adjustment of the mA and/or kV according to patient size, and/or use of iterative reconstruction technique. COMPARISON: No relevant prior studies available. FINDINGS: Brain: No hemorrhage or mass effect. Ventricles: No hydrocephalus. Bones/joints: Unremarkable. Soft tissues: Unremarkable. Sinuses: No air fluid level. Mastoid air cells: Clear. IMPRESSION: No acute hemorrhage, hydrocephalus, or mass effect.
--- NOTE | 2024-01-26 01:50 | ED ---
Neuro HPI - General Chief Complaint: Neuro Symptoms/Deficit Stated Complaint: left side numbness bump on head Source: patient Mode of arrival: wheelchair - History of Present Illness Is the patient presenting with stroke symptoms?: Yes Initial Comments: 48-year-old female who is a poor historian presents to the emergency department reporting left-sided paresthesias and weakness. States that the symptoms have been going on for the past couple of days. Denies history of stroke. Admits to headache without visual changes. No nausea or vomiting. No new trauma. No speech deficit. Denies any chest pain or shortness of breath. No concern for . No other alleviating, precipitating or modifying factors - Related Data Home Medications: Home Medications Medication Instructions Recorded Confirmed Omeprazole [PriLOSEC] 20 mg PO DAILY 11/25/19 07/05/22 Butalb/APAP/Caff 50-325-40Mg 1 tab PO Q8H PRN 07/05/22 07/05/22 [Fioricet 50-325-40] traMADol HCL 50 mg PO BID PRN 07/05/22 07/05/22 Previous Rx's Medication Instructions Recorded Atorvastatin [Lipitor] 40 mg PO DAILY 30 Days #30 tablet 07/08/22 Ondansetron Odt [Zofran Odt] 4 mg PO Q8HR PRN #20 tab 09/02/22 Allergies/Adverse Reactions: Allergies Allergy/AdvReac Type Severity Reaction Status Date / Time No Known Allergies Allergy Unverified 09/30/22 02:14 Review of Systems ROS Statement: Those systems with pertinent positive or pertinent negative responses have been documented in the HPI. ROS Other: All systems not noted in ROS Statement are negative. Stroke MDM - Lab Data Result diagrams: 01/26/24 00:13 01/26/24 00:13 Lab Results 01/26/24 01/26/24 01/26/24 Range/Units 00:13 00:13 00:13 WBC 8.3 (3.8-10.6) k/uL RBC 4.97 (3.80-5.40) m/uL Hgb 15.2 (11.4-16.0) gm/dL Hct 46.6 H (34.0-46.0) % MCV 93.8 (80.0-100.0) fL MCH 30.7 (25.0-35.0) pg MCHC 32.7 (31.0-37.0) g/dL RDW 11.8 (11.5-15.5) % Plt Count 439 (150-450) k/uL MPV 7.6 Neutrophils % 57 % Lymphocytes % 34 % Monocytes % 5 % Eosinophils % 2 % Basophils % 1 % Neutrophils # 4.8 (1.3-7.7) k/uL Lymphocytes # 2.8 (1.0-4.8) k/uL Monocytes # 0.4 (0-1.0) k/uL Eosinophils # 0.2 (0-0.7) k/uL Basophils # 0.1 (0-0.2) k/uL PT 10.0 (10.0-12.5) sec INR 0.9 (<1.2) APTT 24.8 (22.0-30.0) sec Sodium 138 (137-145) mmol/L Potassium 3.8 (3.5-5.1) mmol/L Chloride 103 (98-107) mmol/L Carbon Dioxide 25 (22-30) mmol/L Anion Gap 10 mmol/L BUN 10 (7-17) mg/dL Creatinine 0.86 (0.52-1.04) mg/dL Est GFR (CKD-EPI)AfAm >90 (>60 ml/min/1.73 sqM) Est GFR (CKD-EPI)NonAf 81 (>60 ml/min/1.73 sqM) Glucose 99 (74-99) mg/dL POC Glucose (mg/dL) (70-110) mg/dL POC Glu Design Architect ID Calcium 9.6 (8.4-10.2) mg/dL Total Bilirubin 0.7 (0.2-1.3) mg/dL AST 23 (14-36) U/L ALT 16 (4-34) U/L Alkaline Phosphatase 99 (38-126) U/L Creatine Kinase 53 (30-135) U/L Troponin I (0.000-0.034) ng/mL Total Protein 7.5 (6.3-8.2) g/dL Albumin 4.3 (3.5-5.0) g/dL Urine Color Urine Appearance (Clear) Urine pH (5.0-8.0) Ur Specific [place] (1.001-1.035) Urine Protein (Negative) Urine Glucose (UA) (Negative) Urine Ketones (Negative) Urine Blood (Negative) Urine Nitrite (Negative) Urine Bilirubin (Negative) Urine Urobilinogen (<2.0) mg/dL Ur Leukocyte Esterase (Negative) Urine RBC (0-5) /hpf Urine WBC (0-5) /hpf Ur Squamous Epith Cells (0-4) /hpf Urine Bacteria (None) /hpf Urine Mucus (None) /hpf Serum Alcohol <10 mg/dL 01/26/24 01/26/24 01/26/24 Range/Units 00:13 00:14 01:15 WBC (3.8-10.6) k/uL RBC (3.80-5.40) m/uL Hgb (11.4-16.0) gm/dL Hct (34.0-46.0) % MCV (80.0-100.0) fL MCH (25.0-35.0) pg MCHC (31.0-37.0) g/dL RDW (11.5-15.5) % Plt Count (150-450) k/uL MPV Neutrophils % % Lymphocytes % % Monocytes % % Eosinophils % % Basophils % % Neutrophils # (1.3-7.7) k/uL Lymphocytes # (1.0-4.8) k/uL Monocytes # (0-1.0) k/uL Eosinophils # (0-0.7) k/uL Basophils # (0-0.2) k/uL PT (10.0-12.5) sec INR (<1.2) APTT (22.0-30.0) sec Sodium (137-145) mmol/L Potassium (3.5-5.1) mmol/L Chloride (98-107) mmol/L Carbon Dioxide (22-30) mmol/L Anion Gap mmol/L BUN (7-17) mg/dL Creatinine (0.52-1.04) mg/dL Est GFR (CKD-EPI)AfAm (>60 ml/min/1.73 sqM) Est GFR (CKD-EPI)NonAf (>60 ml/min/1.73 sqM) Glucose (74-99) mg/dL POC Glucose (mg/dL) 101 (70-110) mg/dL POC Glu Design Architect ID Rucker, Shirley Calcium (8.4-10.2) mg/dL Total Bilirubin (0.2-1.3) mg/dL AST (14-36) U/L ALT (4-34) U/L Alkaline Phosphatase (38-126) U/L Creatine Kinase (30-135) U/L Troponin I <0.012 (0.000-0.034) ng/mL Total Protein (6.3-8.2) g/dL Albumin (3.5-5.0) g/dL Urine Color Colorless Urine Appearance Clear (Clear) Urine pH 6.0 (5.0-8.0) Ur Specific [place] 1.048 H (1.001-1.035) Urine Protein Negative (Negative) Urine Glucose (UA) Negative (Negative) Urine Ketones Negative (Negative) Urine Blood Negative (Negative) Urine Nitrite Negative (Negative) Urine Bilirubin Negative (Negative) Urine Urobilinogen <2.0 (<2.0) mg/dL Ur Leukocyte Esterase Large H (Negative) Urine RBC 16 H (0-5) /hpf Urine WBC 43 H (0-5) /hpf Ur Squamous Epith Cells 1 (0-4) /hpf Urine Bacteria Occasional H (None) /hpf Urine Mucus Rare H (None) /hpf Serum Alcohol mg/dL - Medical Decision Making Was pt. sent in by a medical professional or institution (Dr. PA, SPINDLE TESTER, urgent care, hospital, or fpc...) When possible be specific @ -[No] Did you speak to anyone other than the patient for history (EMS, parent, family, police, friend...)? What history was obtained from this source @ -[No] Did you review nursing and triage notes (agree or disagree)? Why? @ -[I reviewed and agree with nursing and triage notes] Were old charts reviewed (outside hosp., previous admission, EMS record, old EKG, old radiological studies, urgent care reports/EKG's, fpc records)? Report findings @ -[No old charts were reviewed] Differential Diagnosis (chest pain, altered mental status, abdominal pain women, abdominal pain men, vaginal bleeding, weakness, fever, dyspnea, syncope, headache, dizziness, GI bleed, back pain, seizure, CVA, palpatations, mental health, musculoskeletal)? @ -[not applicable] EKG interpreted by me (3pts min.). @ -Yes and demonstrates sinus rhythm with a rate of 69. [place] interval 133. QRS 94. QTc of 398. Deep ST depression V1 V2. No acute ST elevation X-rays interpreted by me (1pt min.). @ -[None done] CT interpreted by me (1pt min.). @ -[None done] U/S interpreted by me (1pt. min.). @ -[None done] What testing was considered but not performed or refused? (CT, X-rays, U/S, labs)? Why? @ -[None] What meds were considered but not given or refused? Why? @ -[None] Did you discuss the management of the patient with other professionals (professionals i.e. , PA, SPINDLE TESTER, lab, RT, psych nurse, social worker palliative care, junior analyst, teacher, immigration officer, employment case manager)? Give summary @ -[No] Was smoking cessation discussed for >3mins.? @ -[No] Was critical care preformed (if so, how long)? @ -[No] Were there social determinants of health that impacted care today? How? (Homelessness, low income, unemployed, alcoholism, drug addiction, transportation, low edu. Level, literacy, decrease access to med. care, residential, rehab)? @ -[No] Was there de-escalation of care discussed even if they declined (Discuss DNR or withdrawal of care, Hospice)? DNR status @ -[No] What co-morbidities impacted this encounter? (DM, HTN, Smoking, COPD, CAD, Cancer, CVA, ARF, Chemo, Hep., AIDS, mental health diagnosis, sleep apnea, morbid obesity)? @ -[None] Was patient admitted / discharged? Hospital course, mention meds given and route, prescriptions, significant lab abnormalities, going to OR and other pertinent info. @ -[hospital course] Undiagnosed new problem with uncertain prognosis? @ -[No] Drug Therapy requiring intensive monitoring for toxicity (Heparin, Nitro, Insulin, Cardizem)? @ -[No] Were any procedures done? @ -[No] Diagnosis/symptom? @ -[default] Acute, or Chronic, or Acute on Chronic? @ -[default] Uncomplicated (without systemic symptoms) or Complicated (systemic symptoms)? @ -[default] Side effects of treatment? @ -[No] Exacerbation, Progression, or Severe Exacerbation? @ -[No] Poses a threat to life or bodily function? How? (Chest pain, [place], [place], pneumonia, PE, COPD, DKA, ARF, appy, cholecystitis, CVA, Diverticulitis, Homicidal, Suicidal, threat to staff... and all critical care pts) @ -[No] Past Medical History Past Medical History: Hyperlipidemia Additional Past Medical History / Comment(s): Hx MIGRAINES, hx elevated liver enzymes, marcin shoulder prob. Upper abd pain, nausea for long time, 15 years estimated. NT lt leg w/ pain. History of Any Multi-Drug Resistant Organisms: None Reported Past Surgical History: Cholecystectomy, Orthopedic Surgery, Tubal Ligation Additional Past Surgical History / Comment(s): Marcin SHOULDER ROTATOR CUFF, LEFT KNEE arthroscopy, Past Anesthesia/Blood Transfusion Reactions: Motion Sickness Past Psychological History: Anxiety, Depression Smoking Status: Never smoker Past Alcohol Use History: Rare Past Drug Use History: None Reported - Past Family History Mother Family Medical History: Cancer Additional Family Medical History / Comment(s): RECTAL CANCER Course Vital Signs 01/25/24 23:37 Temperature 98.0 F Pulse Rate 100 Respiratory 18 Rate Blood Pressure 111/79 O2 Sat by Pulse 100 Oximetry Disposition Clinical Impression: Left-sided weakness, Transient cerebral ischemia Disposition: ADMITTED IP TO THIS [facility] Condition: Stable Is patient prescribed a controlled substance at d/c from ED?: No Referrals: Mann Sullivan DO [Primary Care Provider] - 1-2 days Time of Disposition: 03:12 Decision to Admit Reason: Admit from EC Decision Date: 01/26/24 Decision Time: 03:12
[2024-01-26 01:55] LABS: Appearance,Urine Clear (Clear); Bacteria,Urine Occasional /hpf; Bilirubin,Urine Negative (Negative); Blood,Urine Negative (Negative); Color,Urine Colorless; Glucose,Urine (UA) Negative (Negative); Ketones,Urine Negative (Negative); Leukocyte Esterase,Urine Large (Negative); Mucus,Urine Rare /hpf; Nitrite,Urine Negative (Negative); Protein,Urine Negative (Negative); RBC,Urine 16 /hpf (0-5); Squamous Epithelial Cell,Urine 1 /hpf (0-4); Urobilinogen,Urine <2.0 mg/dL (<2.0); WBC,Urine 43 /hpf (0-5)
--- NOTE | 2024-01-26 01:56 | XR ---
EXAM: XR Chest, 2 Views CLINICAL HISTORY: ITS.REASON XR Reason: altered mental status TECHNIQUE: Frontal and lateral views of the chest. COMPARISON: No relevant prior studies available. FINDINGS: Lungs: No consolidation or mass. Pleural space: No effusion. Heart: No cardiomegaly. Bones/joints: No acute findings. IMPRESSION: No acute cardiopulmonary process.
[2024-01-26 02:01] LABS: Specific Gravity,Urine 1.048 (1.001-1.035)
--- NOTE | 2024-01-26 02:13 | CT ---
EXAM: CT Angiography Head With Intravenous Contrast CLINICAL HISTORY: ITS.REASON CT Reason: Neuro deficit, acute, stroke suspected TECHNIQUE: Axial computed tomographic angiography images of the head with intravenous contrast. CTDI is 8.85 mGy and DLP is 172.75 mGy-cm. This CT exam was performed using one or more of the following dose reduction techniques: automated exposure control, adjustment of the mA and/or kV according to patient size, and/or use of iterative reconstruction technique. MIP reconstructed images were created and reviewed. COMPARISON: No relevant prior studies available. FINDINGS: Right internal carotid artery: No significant stenosis. No aneurysm. Right anterior cerebral artery: No significant stenosis. No aneurysm. Right middle cerebral artery: No significant stenosis. No aneurysm. Right posterior cerebral artery: No significant stenosis. No aneurysm. Right vertebral artery: Unremarkable. Left internal carotid artery: No significant stenosis. No aneurysm. Left anterior cerebral artery: No significant stenosis. No aneurysm. Left middle cerebral artery: No significant stenosis. No aneurysm. Left posterior cerebral artery: No significant stenosis. No aneurysm. Left vertebral artery: Unremarkable. Basilar artery: No significant stenosis. No aneurysm. IMPRESSION: No significant stenosis. EXAM: CT Angiography Neck With Intravenous Contrast CLINICAL HISTORY: ITS.REASON CT Reason: Neuro deficit, acute, stroke suspected TECHNIQUE: Axial computed tomographic angiography images of the neck with intravenous contrast. CTDI is 8.85 mGy and DLP is 172.75 mGy-cm. This CT exam was performed using one or more of the following dose reduction techniques: automated exposure control, adjustment of the mA and/or kV according to patient size, and/or use of iterative reconstruction technique. MIP reconstructed images were created and reviewed. COMPARISON: No relevant prior studies available. FINDINGS: VASCULATURE: Right common carotid artery: No significant stenosis. No dissection. Right internal carotid artery: No significant stenosis. No dissection. Right vertebral artery: No significant stenosis. No dissection. Left common carotid artery: No significant stenosis. No dissection. Left internal carotid artery: No significant stenosis. No dissection. Left vertebral artery: No significant stenosis. No dissection. NECK: Lung apices: Unremarkable. CAROTID STENOSIS REFERENCE USING NASCET CRITERIA: % ICA stenosis = (1 - narrowest ICA diameter/diameter of distal cervical ICA) x 100. Mild - <50% stenosis. Moderate - 50-69% stenosis. Severe - 70-94% stenosis. Near occlusion - 95-99% stenosis. Occluded - 100% stenosis. IMPRESSION: No significant stenosis.
[2024-01-26] MEDS ORDERED: NALOXONE 0.4 MG/ML 1 ML VIAL IV PRN (03:12)
[2024-01-26] MEDS: ASPIRIN 325 MG TAB PO SCH (04:13)
[2024-01-26] MEDS: ASPIRIN 325 MG TAB PO STA (04:13)
[2024-01-26] MEDS: ATORVASTATIN 40 MG TAB PO SCH (09:42)
[2024-01-26] MEDS: ENOXAPARIN 40 MG/0.4 ML SYRINGE SQ SCH (11:56)
[2024-01-26] MEDS ORDERED: LACTATED RINGERS 1,000 ML IV SCH (13:30)
[2024-01-26] MEDS: BUTALB/APAP/CAFF 50-325-40MG TAB PO PRN (14:27)
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
[2024-01-27] MEDS: ACETAMINOPHEN TAB 500 MG TAB PO PRN (04:07)
[2024-01-27] MEDS: ASPIRIN 81 MG PO SCH (08:36)
[2024-01-27 09:19] LABS: Basophils # (A) 0.1 k/uL (0-0.2); Basophils % (A) 1 %; Eosinophils # (A) 0.2 k/uL (0-0.7); Eosinophils % (A) 3 %; HCT 49.4 % (34.0-46.0); HGB 16.2 gm/dL (11.4-16.0); Lymphocytes # (A) 2.7 k/uL (1.0-4.8); Lymphocytes % (A) 35 %; MCH 31.1 pg (25.0-35.0); MCHC 32.8 g/dL (31.0-37.0); MCV 95.1 fL (80.0-100.0); Mean Platelet Volume 7.9; Monocytes # (A) 0.3 k/uL (0-1.0); Monocytes % (A) 4 %; Neutrophils # (A) 4.2 k/uL (1.3-7.7); Neutrophils % (A) 55 %; Platelet Count 491 k/uL (150-450); RBC 5.19 m/uL (3.80-5.40); RDW 12.3 % (11.5-15.5); WBC 7.7 k/uL (3.8-10.6)
--- NOTE | 2024-01-27 09:54 | P.CNNES ---
History of Present Illness Consult date: 01/26/24 Requesting physician: Keila Anthony Reason for Consult: right sided paresthesia, possible tia History of Present Illness: Patient is a 48-year-old female came to the hospital yesterday at 11:35 PM numerous neuro symptoms. Patient states that about 4 to 6 weeks ago, on one morning she was laying in the bed and she tried to walk in her left leg started limping, dragging. She has to hang onto the furniture to support. Her left hand felt numb, and her left hand twitches, which she shows me as pill-rolling. She was dragging her foot, which would get worse in the evening. Her left hand "" stopped working. Patient was also having problem with her back and saw a solution professional, who felt patient was having anxiety problem. However did recommend for her to follow-up with her primary physician to rule out lupus or anxiety. Her whole body jerks. Since then, she loses a lot of sensation on the left side. Patient has numerous symptoms that she tells randomly, therefore describing them randomly in detail as below: Complaining of "sores all over her head", pointing to the scalp region. She has big bump on the forehead although I do not see any. Her face feels hot. She claims her skull swells and expands and then her left face becomes numb. Her left arm feels numb. Yesterday her head was feeling hot, skull was sweating and she was losing vision in her eyes. She felt like her knuckles were fractured. Both feet were hurting to walk, left more than right. She felt nauseated. Last Friday she had similar episode of "head sweating, face heart, sores in the scalp". She is complaining of numbness of the left side of the body. It got worse yesterday. Patient states it feels like there is water in her ear. She is complaining of chest hurting bad, could not breathe, short of breath. Body feels weak. She has to use woods and furniture. She states that she sleeps 12 to 16 hours/day. Some days she does not sleep. She has no appetite for weeks. Denies hypertension or diabetes. She does have hyperlipidemia. Patient has declined to take medications. She at present not taking any medication. She admits to having neck hurting pointing to the carotid region. She believes her headache comes from the neck. Patient also complaining of excruciating pain in the lower abdominal/pelvic region that extends to the lower back region for last "couple years". It extends to the left iliac bone region. Patient states that she would scream while she would be sitting in the bathroom but she has no issues with the bowel or bladder control. Patient states that she just lays in the bed all day, every day. Patient also follows up with Dr. Mckeon, who performs injections to her lower back region. She is scheduled for MRI of the lumbar spine soon through his office. Patient states that she has "pharmacy at home". Purple pill makes her stomach hurt. She has digestive issues since age 15, has been to "so many doctors" and cannot find out any problem. She has trouble breathing, trouble swallowing for last 1-1/2 years. Patient has history of migraine headaches, states "half my life". Also has neck issues "have my life". Patient states that she cannot walk because her foot do es not work. She has no strength on the left side. Patient states that she cannot get around her house once her foot starts hurting. On 10/19/2023 she was admitted for low back pain and was diagnosed with anxiety. Patient states that she has no menstrual cycle for 3 years. Vital signs on arrival blood pressure 111/79, pulse rate [address] head is normal. I reviewed CT head and agree with the findings. EKG and chest x-ray are normal. Patient denies any tobacco use or alcohol. Denies diabetes. Patient lives with her fianc, does have 2 children aged 28 and 25. At home she does not use any assistive device. Patient had an MRI of cervical spine performed 08/13/2019 which revealed annular tear and focal small broad-based disc herniation centrally and paracentrally to left C5-C6 with mild thecal sac compression but no spinal cord contact or foraminal encroachment. Annular tear and mild broad-based central disc bulging but no focal herniation C4-C5. No foraminal encroachment. Patient had a normal 2D echo with normal EF 55 to 60% and normal intracardiac valves on 07/06/2022. Review of Systems As mentioned in detail in HPI. All other review of systems are noncontributory. Past Medical History Past Medical History: Hyperlipidemia Additional Past Medical History / Comment(s): Hx MIGRAINES, hx elevated liver enzymes, marcin shoulder prob. Upper abd pain, nausea for long time, 15 years estimated. NT lt leg w/ pain. History of Any Multi-Drug Resistant Organisms: None Reported Past Surgical History: Cholecystectomy, Orthopedic Surgery, Tubal Ligation Additional Past Surgical History / Comment(s): Marcin SHOULDER ROTATOR CUFF, LEFT KNEE arthroscopy, Past Anesthesia/Blood Transfusion Reactions: Motion Sickness Past Psychological History: Anxiety, Depression Smoking Status: Never smoker Past Alcohol Use History: Rare Past Drug Use History: None Reported - Past Family History Mother Family Medical History: Cancer Additional Family Medical History / Comment(s): RECTAL CANCER Medications and Allergies Home Medications Medication Instructions Recorded Confirmed Type No Known Home Medications 01/26/24 01/26/24 History Allergies Allergy/AdvReac Type Severity Reaction Status Date / Time No Known Allergies Allergy Verified 01/26/24 07:42 Physical Examination - Vital Signs Vital Signs: Vital Signs Temp Pulse Pulse Resp BP BP Pulse Ox 01/27/24 08:30 97.8 F 91 16 96/66 96 01/27/24 02:44 98.1 F 61 14 90/65 97 01/26/24 23:00 97.1 F L 100 14 86/48 100 01/26/24 22:24 72 01/26/24 20:00 97.2 F L 73 16 105/65 100 01/26/24 17:15 89 18 98/69 99 01/26/24 13:00 80 18 96 01/26/24 12:45 67 18 99 01/26/24 12:00 59 L 18 122/96 99 01/26/24 11:45 66 18 99/68 99 01/26/24 11:00 81 18 99 01/26/24 10:45 91 18 98 01/26/24 10:30 62 18 101/63 97 01/26/24 09:45 68 18 104/64 97 Patient is a middle aged female, in no acute distress. Patient was having intermittent twitching/jerking of the left side of the body, which appears functional pattern as well. Patient is alert, awake oriented to time place and person. Speech and language functions are normal. Patient can name and repeat very well. No aphasia or dysarthria. Attention, concentration and fund of knowledge is adequate. On cranial nerve examination, pupils are equal, round and reacting to light, visual stevens are full on confrontation, with no neglect on double simultaneous stimulation. Extraocular muscles are intact with no nystagmus. Face is symmetric, tongue protrudes to the midline. Palatal elevation and sensation normal, hearing and shoulder shrug normal, facial sensation slightly decreased on the left as compared to right. On muscle strength testing, there is left arm drift. Patient immediately will drift the left arm down. The muscle strength is (right/left) deltoid 5/4, triceps 5/5-(with pain in the elbow), business intelligence developer 5/4-, biceps 5/5-4+ (with pain in the forearm), hip flexion 5/4, ankle dorsiflexion 5/4+5-. Deep tendon reflexes are symmetric 1 at the biceps, 1 brachioradialis, trace at the knees and plantars downgoing bilaterally. Sensory to touch is decreased in the left side of the body including face arm and leg. Cerebellar function showed no ataxia for [id number] testing. No dysdiadochokinesia. No ataxia for [id number]-[id number] testing on either side. Tone and bulk of muscles normal. Gait deferred.. On general examination, there is no carotid bruit or murmur, S1-S2 audible. Chest is clear on consultation. Abdomen is soft nontender. No organomegaly, bowel sounds present. Peripheral pulses are present. No peripheral edema. Results - Laboratory Findings CBC and BMP: 01/27/24 08:46 01/26/24 00:13 Abnormal Lab Findings: Abnormal Labs 01/26/24 01/26/24 01/27/24 00:13 01:15 08:46 Hgb 16.2 H Hct 46.6 H 49.4 H Plt Count 491 H Ur Specific Cassandra 1.048 H Ur Leukocyte Esterase Large H Urine RBC 16 H Urine WBC 43 H Urine Bacteria Occasional H Urine Mucus Rare H Assessment and Plan Assessment: * 48-year-old female presenting with numerous neurological and nonneurological symptoms. For last 4 to 6 weeks, she has developed some symptoms on the left side of the body. Examination revealed decreased sensation and subjective weakness on the left side. CT head showed no acute process. Rule out MS. Rule out functional disorder/psychosomatic disorder. * Hyperlipidemia Plan: * From neurological perspective, I will check MRI of the brain with and without contrast rule out any structural abnormality or demyelinating disease. * Check B12, folate, hemoglobin A1c. * Lipid panel. Her previous lipid panel showed cholesterol 250, LDL 148, HDL 54 and triglycerides 237. Patient was previously prescribed Lipitor but she declined. * Agree with starting aspirin 81 mg daily. * CTA of head and neck are normal. No significant stenosis or aneurysm. * Neurology will follow after above test completed. * For other, nonneurological symptoms, we will defer to IM. * Discussed with primary physician. Thank you for the consult. Time with Patient: Greater than 30
[2024-01-27 09:57] LABS: African American GFR (CKD) >90 (>60 ml/min/1.73 sqM); Anion Gap 9 mmol/L; Blood Urea Nitrogen 10 mg/dL (7-17); Calcium 9.7 mg/dL (8.4-10.2); Carbon Dioxide 28 mmol/L (22-30); Chloride 102 mmol/L (98-107); Glucose 95 mg/dL (74-99); Non-African American GFR(CKD) >90 (>60 ml/min/1.73 sqM); Potassium 4.2 mmol/L (3.5-5.1); Sodium 139 mmol/L (137-145)
[2024-01-27] MEDS: CYANOCOBALAMIN 1,000 MCG/ML 1 ML VIAL IM ONE (11:26)
[2024-01-27] MEDS: FOLIC ACID 1 MG TAB PO SCH (11:26)
[2024-01-27 15:27] LABS: Chol/HDL Ratio 4.76 Ratio; LDL Cholesterol,Calculated 123.5 mg/dL (0.0-131.0)
[2024-01-27 16:14] VITALS: RESP 16
--- NOTE | 2024-01-27 16:36 | P.PN ---
Subjective Progress Note Date: 01/27/24 Patient is laying comfortably in the bed. States no changes compared to yesterday. No better or worse. Objective - Vital Signs Vital signs: Vital Signs Temp 97.9 F 01/27/24 15:45 Pulse 79 01/27/24 15:45 Resp 16 01/27/24 15:45 BP 93/61 01/27/24 15:45 Pulse Ox 97 01/27/24 15:45 FiO2 Intake & Output 01/26/24 01/27/24 01/27/24 18:59 06:59 18:59 Weight 68.039 kg Other: Voiding Method Toilet Toilet - Exam Patient was asleep. Detailed testing deferred. - Labs CBC & Chem 7: 01/27/24 08:46 01/27/24 08:46 Labs: Abnormal Lab Results - Last 24 Hours (Table) 01/27/24 01/27/24 Range/Units 08:46 08:46 Hgb 16.2 H (11.4-16.0) gm/dL Hct 49.4 H (34.0-46.0) % Plt Count 491 H (150-450) k/uL Triglycerides 216.00 H (0.00-149.00) mg/dL Cholesterol 211.00 H (0.00-200.00) mg/dL VLDL Cholesterol, Calc 43.20 H (5.00-40.00) mg/dL Assessment and Plan Assessment: * 48-year-old female presenting with numerous neurological and nonneurological symptoms. For last 4 to 6 weeks, she has developed some symptoms on the left side of the body. Examination revealed decreased sensation and subjective weakness on the left side. CT head showed no acute process. Rule out MS. Rule out functional disorder/psychosomatic disorder. * Hyperlipidemia * Vitamin B12 deficiency * Folate deficiency Plan: * Await MRI of the brain with and without contrast rule out any structural abnormality or demyelinating disease. * B12 210, folate 4.4, hemoglobin A1c 5.4. Patient given vitamin B12 injection 1000 mcg x 1 dose. Started on folic acid 1 mg daily. * Lipid panel cholesterol 211, LDL 123, HDL 44, triglycerides 216. Continue Lipitor 40 mg daily. Patient was previously prescribed Lipitor but she declined. * Agree with starting aspirin 81 mg daily. * CTA of head and neck are normal. No significant stenosis or aneurysm. * Neurology will follow after above test completed. * For other, nonneurological symptoms, we will defer to IM. * Discussed with primary physician.
[2024-01-27] MEDS ORDERED: BUTALB/APAP/CAFF 50-325-40MG TAB PO PRN (18:26)
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
--- NOTE | 2024-01-27 20:47 | MR ---
EXAMINATION TYPE: MR brain wo/w con DATE OF EXAM: 01/27/2024 8:30 PM CLINICAL INDICATION:Female, 48 years old with history of Recurrent left-sided symptoms, r/O MS/cvA; P HH, Recurrent left-sided symptoms, r/o ms/cva COMPARISON: CT head 01/26/2024. TECHNIQUE: Multi planar, multi sequence imaging was performed through the brain including: T1, T2, In version recovery, susceptibility weighted imaging and gradient echo imaging and Diffusion weighted im aging. The patient was then given intravenous contrast and multi planar, T1 fat-saturation images wer e obtained. IV Contrast: 7 cc Gadavist FINDINGS: The mcmillan-white junctions, ventricular system, basal cisterns appear unremarkable. Diffusion-weighted imaging shows no evidence of restricted diffusion to suggest acute/subacute infarct. Intracranial arterial flow voids are maintained. Midline structures show no abnormality. No significa nt white matter abnormalities. The susceptibility weighted images do not reveal any evidence for micr o-hemorrhage. After administration of gadolinium, no abnormal enhancement is seen. The bone marrow signal is within normal limits. Paranasal sinuses and mastoid air cells: No significant paranasal sinus disease. Visualized orbits: Orbital contents are intact. IMPRESSION: No evidence of intracranial mass, acute/subacute infarct, or abnormal enhancement.
[2024-01-28 09:50] VITALS: BP 119/62; PULSE 87; TEMP 98
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
== END 2024-01-28 11:51 | disposition home or self-care (01) ==
LOC: EC 23:35 → 3SCARD 01-26 03:20
PROVIDERS: ADMIT Hospitalist; ATTEND Hospitalist
DX: F45.9 Somatoform disorder, unspecified (principal); R53.1 Weakness; M54.2 Cervicalgia; G89.29 Other chronic pain; R51.9 Headache, unspecified; K59.09 Other constipation; E78.5 Hyperlipidemia, unspecified; E53.8 Deficiency of other specified B group vitamins; F32.A Depression, unspecified; F41.9 Anxiety disorder, unspecified; Z79.899 Other long term (current) drug therapy
CPT/HCPCS: 96372 ×2; 99285; 36415; 93005; 80061; 80053; 80048; 82607; 82550; 82746; 84484; 85025 ×2; 85610; 85730; 81001; 83036; 71046; 70496; 70450; 70498; 70553; G0378 ×3; G0480; J3420; J1650; Q9967; A9585; 80320

== ENCOUNTER 2024-03-27 22:42 | Emergency (ER) | payer OTHER ==
[2024-03-27 22:49] VITALS: TEMP 98.1
[2024-03-27] MEDS: SODIUM CHLORIDE 0.9% 1,000 ML IV STA (23:55)
[2024-03-27] MEDS: KETOROLAC 15 MG/ML 1 ML VIAL IVP STA (23:55)
[2024-03-28 00:07] LABS: Basophils # (A) 0.1 k/uL (0-0.2); Basophils % (A) 1 %; Eosinophils # (A) 0.1 k/uL (0-0.7); Eosinophils % (A) 2 %; HCT 43.4 % (34.0-46.0); HGB 14.1 gm/dL (11.4-16.0); Lymphocytes # (A) 2.6 k/uL (1.0-4.8); Lymphocytes % (A) 34 %; MCH 30.8 pg (25.0-35.0); MCHC 32.5 g/dL (31.0-37.0); MCV 94.9 fL (80.0-100.0); Mean Platelet Volume 7.4; Monocytes # (A) 0.4 k/uL (0-1.0); Monocytes % (A) 5 %; Neutrophils # (A) 4.3 k/uL (1.3-7.7); Neutrophils % (A) 57 %; Platelet Count 437 k/uL (150-450); RBC 4.57 m/uL (3.80-5.40); RDW 12.7 % (11.5-15.5); WBC 7.6 k/uL (3.8-10.6)
[2024-03-28 00:17] LABS: ALT 27 U/L (4-34); AST 29 U/L (14-36); African American GFR (CKD) >90 (>60 ml/min/1.73 sqM); Albumin 4.8 g/dL (3.5-5.0); Alkaline Phosphatase 102 U/L (38-126); Anion Gap 9 mmol/L; Blood Urea Nitrogen 13 mg/dL (7-17); Calcium 10.3 mg/dL (8.4-10.2); Carbon Dioxide 24 mmol/L (22-30); Chloride 104 mmol/L (98-107); Creatine Kinase 69 U/L (30-135); Glucose 105 mg/dL (74-99); Non-African American GFR(CKD) 79 (>60 ml/min/1.73 sqM); Potassium 3.7 mmol/L (3.5-5.1); Sodium 137 mmol/L (137-145); Total Bilirubin 1.4 mg/dL (0.2-1.3); Total Protein 7.8 g/dL (6.3-8.2)
[2024-03-28 00:18] LABS: Partial Thromboplastin Time 23.7 sec (22.0-30.0); Prothrombin Time 10.6 sec (10.0-12.5)
--- NOTE | 2024-03-28 01:32 | ED ---
General Adult HPI - General Chief complaint: Neuro Symptoms/Deficit Stated complaint: Left Arm tingling Time Seen by Provider: 03/27/24 23:22 Source: patient Mode of arrival: wheelchair - History of Present Illness Initial comments: 49-year-old female presenting with chief complaint of tingling in the right hand and wrist. She states that this was quite painful which prompted her to come into the emergency room. She states that she has been dealing with numbness and tingling in various extremities recently. She was recently hospitalized at our facility and seen by neurology for this. She is currently being tested for lupus and rheumatoid arthritis by her PCP. She denies chest pain, difficulty breathing, abdominal pain, vomiting, fever, injury. - Related Data Previous Rx's Medication Instructions Recorded Aspirin 81 mg PO DAILY tab 01/28/24 Atorvastatin [Lipitor] 40 mg PO DAILY #30 tab 01/28/24 Folic Acid 1 mg PO DAILY #30 tab 01/28/24 Allergies Allergy/AdvReac Type Severity Reaction Status Date / Time No Known Allergies Allergy Verified 03/27/24 22:49 Review of Systems ROS Statement: Those systems with pertinent positive or pertinent negative responses have been documented in the HPI. ROS Other: All systems not noted in ROS Statement are negative. Past Medical History Past Medical History: Hyperlipidemia Additional Past Medical History / Comment(s): Hx MIGRAINES, hx elevated liver enzymes, john shoulder prob. Upper abd pain, nausea for long time, 15 years estimated. NT lt leg w/ pain. History of Any Multi-Drug Resistant Organisms: None Reported Past Surgical History: Cholecystectomy, Orthopedic Surgery, Tubal Ligation Additional Past Surgical History / Comment(s): John SHOULDER ROTATOR CUFF, LEFT KNEE arthroscopy, Past Anesthesia/Blood Transfusion Reactions: Motion Sickness Past Psychological History: Anxiety, Depression Smoking Status: Never smoker Past Alcohol Use History: Rare Past Drug Use History: None Reported - Past Family History Mother Family Medical History: Cancer Additional Family Medical History / Comment(s): RECTAL CANCER General Exam Limitations: no limitations General appearance: alert, in no apparent distress Head exam: Present: atraumatic, normocephalic Eye exam: Present: normal appearance, EOMI Neck exam: Present: normal inspection. Absent: meningismus Respiratory exam: Present: normal lung sounds bilaterally. Absent: respiratory distress, wheezes, rales, rhonchi, stridor Cardiovascular Exam: Present: regular rate, normal rhythm, normal heart sounds. Absent: systolic murmur, diastolic murmur, rubs, gallop, clicks Extremities exam: Present: normal inspection. Absent: pedal edema Left Hand Wrist exam: Present: normal inspection, full ROM, tenderness. Absent: swelling Neurological exam: Present: alert, oriented X3 Expanded Patient oriented to: Present: person, place, time Speech: Present: fluid speech Cranial nerves: EOM's Intact: Normal Cerebellar function: Finger to Nose: Normal Sensory exam: Upper Extremity Light Touch: Normal, Lower Extremity Light Touch: Normal Motor strength exam: RUE: 5, LUE: 5, RLE: 5, LLE: 5 Eye Response: (4) open spontaneously Motor Response: (6) obeys commands Verbal Response: (5) oriented Fariba Total: 15 Psychiatric exam: Present: normal affect, normal mood Skin exam: Present: warm, dry Course Vital Signs 03/27/24 03/27/24 03/28/24 22:45 23:56 00:58 Temperature 98.1 F Pulse Rate 77 71 66 Respiratory 18 18 18 Rate Blood Pressure 112/83 102/81 102/81 O2 Sat by Pulse 99 95 95 Oximetry 03/28/24 01:46 Temperature Pulse Rate 67 Respiratory 16 Rate Blood Pressure 99/69 O2 Sat by Pulse 97 Oximetry Medical Decision Making - Medical Decision Making Was pt. sent in by a medical professional or institution (JAIME Hernandez, GYNECOLOGICAL ASSISTANT, urgent care, hospital, or fpc...) When possible be specific @ -[No] Did you speak to anyone other than the patient for history (EMS, parent, family, police, friend...)? What history was obtained from this source @ -[No] Did you review nursing and triage notes (agree or disagree)? Why? @ -[I reviewed and agree with nursing and triage notes] Were old charts reviewed (outside hosp., previous admission, EMS record, old EKG, old radiological studies, urgent care reports/EKG's, fpc records)? Report findings @ -[No old charts were reviewed] Differential Diagnosis (chest pain, altered mental status, abdominal pain women, abdominal pain men, vaginal bleeding, weakness, fever, dyspnea, syncope, headache, dizziness, GI bleed, back pain, seizure, CVA, palpatations, mental health, musculoskeletal)? @ -Differential Musculoskeletal Muscular strain, contusion, ligament sprain, fracture, arthritis, septic arthritis, bursitis, cellulitis, muscle spasm, nerve compression, DVT, arterial occlusion, herpes zoster, electrolyte abnormality, tumor.... This is not meant to be in all inclusive list EKG interpreted by me (3pts min.). @ -EKG shows sinus rhythm ventricular rate 69. AL interval 123. QRS 106. QT 400. QTc 420. No acute changes from previous EKG. X-rays interpreted by me (1pt min.). @ -[None done] CT interpreted by me (1pt min.). @ -[None done] U/S interpreted by me (1pt. min.). @ -[None done] What testing was considered but not performed or refused? (CT, X-rays, U/S, labs)? Why? @ -[None] What meds were considered but not given or refused? Why? @ -[None] Did you discuss the management of the patient with other professionals (professionals i.e. , PA, GYNECOLOGICAL ASSISTANT, lab, RT, psych nurse, social media developer, distribution lead, teacher, security officer, dependency case manager)? Give summary @ -[No] Was smoking cessation discussed for >3mins.? @ -[No] Was critical care preformed (if so, how long)? @ -[No] Were there social determinants of health that impacted care today? How? (Homelessness, low income, unemployed, alcoholism, drug addiction, transportation, low edu. Level, literacy, decrease access to med. care, prison, rehab)? @ -[No] Was there de-escalation of care discussed even if they declined (Discuss DNR or withdrawal of care, Hospice)? DNR status @ -[No] What co-morbidities impacted this encounter? (DM, HTN, Smoking, COPD, CAD, Cancer, CVA, ARF, Chemo, Hep., AIDS, mental health diagnosis, sleep apnea, morbid obesity)? @ -[None] Was patient admitted / discharged? Hospital course, mention meds given and route, prescriptions, significant lab abnormalities, going to OR and other pertinent info. @ -49-year-old female presenting with chief complaint of paresthesias in the left hand. History and physical exam are conducted. No focal neurological deficits. NIH is 0. Lab work requires no action. Troponin is negative and creatinine kinase is WNL. Patient was given Toradol. On reassessment she reports resolution of her symptoms. She would like to be discharged home. Follow-up with PCP. Report back to ER with any new or worsening symptoms. Discussed return parameters and answered all questions. Patient conveyed verbal understanding and agreed to the plan. I discussed this case in detail with my attending Dr. Pablo Undiagnosed new problem with uncertain prognosis? @ -[No] Drug Therapy requiring intensive monitoring for toxicity (Heparin, Nitro, Insul in, Cardizem)? @ -[No] Were any procedures done? @ -[No] Diagnosis/symptom? @ -Paresthesia Acute, or Chronic, or Acute on Chronic? @ -Acute Uncomplicated (without systemic symptoms) or Complicated (systemic symptoms)? @ -Uncomplicated Side effects of treatment? @ -[No] Exacerbation, Progression, or Severe Exacerbation? @ -[No] Poses a threat to life or bodily function? How? (Chest pain, USA, DC, pneumonia, PE, COPD, DKA, ARF, appy, cholecystitis, CVA, Diverticulitis, Homicidal, Suicidal, threat to staff... and all critical care pts) @ -Low likelihood - Lab Data Result diagrams: 03/27/24 23:52 03/27/24 23:52 Lab Results 03/27/24 03/27/24 03/27/24 Range/Units 23:52 23:52 23:52 WBC 7.6 (3.8-10.6) k/uL RBC 4.57 (3.80-5.40) m/uL Hgb 14.1 (11.4-16.0) gm/dL Hct 43.4 (34.0-46.0) % MCV 94.9 (80.0-100.0) fL MCH 30.8 (25.0-35.0) pg MCHC 32.5 (31.0-37.0) g/dL RDW 12.7 (11.5-15.5) % Plt Count 437 (150-450) k/uL MPV 7.4 Neutrophils % 57 % Lymphocytes % 34 % Monocytes % 5 % Eosinophils % 2 % Basophils % 1 % Neutrophils # 4.3 (1.3-7.7) k/uL Lymphocytes # 2.6 (1.0-4.8) k/uL Monocytes # 0.4 (0-1.0) k/uL Eosinophils # 0.1 (0-0.7) k/uL Basophils # 0.1 (0-0.2) k/uL PT 10.6 (10.0-12.5) sec INR 1.0 (<1.2) APTT 23.7 (22.0-30.0) sec Sodium 137 (137-145) mmol/L Potassium 3.7 (3.5-5.1) mmol/L Chloride 104 (98-107) mmol/L Carbon Dioxide 24 (22-30) mmol/L Anion Gap 9 mmol/L BUN 13 (7-17) mg/dL Creatinine 0.87 (0.52-1.04) mg/dL Est GFR (CKD-EPI)AfAm >90 (>60 ml/min/1.73 sqM) Est GFR (CKD-EPI)NonAf 79 (>60 ml/min/1.73 sqM) Glucose 105 H (74-99) mg/dL Calcium 10.3 H (8.4-10.2) mg/dL Total Bilirubin 1.4 H (0.2-1.3) mg/dL AST 29 (14-36) U/L ALT 27 (4-34) U/L Alkaline Phosphatase 102 (38-126) U/L Creatine Kinase 69 (30-135) U/L Troponin I (0.000-0.034) ng/mL Total Protein 7.8 (6.3-8.2) g/dL Albumin 4.8 (3.5-5.0) g/dL 03/27/24 Range/Units 23:52 WBC (3.8-10.6) k/uL RBC (3.80-5.40) m/uL Hgb (11.4-16.0) gm/dL Hct (34.0-46.0) % MCV (80.0-100.0) fL MCH (25.0-35.0) pg MCHC (31.0-37.0) g/dL RDW (11.5-15.5) % Plt Count (150-450) k/uL MPV Neutrophils % % Lymphocytes % % Monocytes % % Eosinophils % % Basophils % % Neutrophils # (1.3-7.7) k/uL Lymphocytes # (1.0-4.8) k/uL Monocytes # (0-1.0) k/uL Eosinophils # (0-0.7) k/uL Basophils # (0-0.2) k/uL PT (10.0-12.5) sec INR (<1.2) APTT (22.0-30.0) sec Sodium (137-145) mmol/L Potassium (3.5-5.1) mmol/L Chloride (98-107) mmol/L Carbon Dioxide (22-30) mmol/L Anion Gap mmol/L BUN (7-17) mg/dL Creatinine (0.52-1.04) mg/dL Est GFR (CKD-EPI)AfAm (>60 ml/min/1.73 sqM) Est GFR (CKD-EPI)NonAf (>60 ml/min/1.73 sqM) Glucose (74-99) mg/dL Calcium (8.4-10.2) mg/dL Total Bilirubin (0.2-1.3) mg/dL AST (14-36) U/L ALT (4-34) U/L Alkaline Phosphatase (38-126) U/L Creatine Kinase (30-135) U/L Troponin I <0.012 (0.000-0.034) ng/mL Total Protein (6.3-8.2) g/dL Albumin (3.5-5.0) g/dL Disposition Clinical Impression: Paresthesia Disposition: HOME SELF-CARE Condition: Good Instructions (If sedation given, give patient instructions): Paresthesia (ED) Additional Instructions: Follow-up with PCP. Report back to ER with any new or worsening symptoms. Is patient prescribed a controlled substance at d/c from ED?: No Referrals: Mann Sullivan DO [Primary Care Provider] - 1-2 days Time of Disposition: 01:32
[2024-03-28 01:48] VITALS: BP 99/69; PULSE 67; RESP 16
== END 2024-03-28 01:55 | disposition home or self-care (01) ==
LOC: EC 22:42
DX: R20.2 Paresthesia of skin (principal)
CPT/HCPCS: 93005; 80053; 82550; 84484; 85025; 85610; 85730; 99283; 96374; 96361; J1885; 36415

== ENCOUNTER → 2024-10-13 | Outpatient (CLI) | payer OTHER ==
--- NOTE | 2024-10-14 09:55 | MM ---
Reason for Exam: Screening (asymptomatic). Last mammogram was performed 5 year(s) and 3 month(s) ago. Patient History: Menarche at age 16. First Full-Term at age 19. Perimenopausal. Maternal grandmother had breast cancer. Maternal aunt had breast cancer. Risk Values: Roma 5 year model risk: 0.6%. NCI Lifetime model risk: 6.1%. Prior Study Comparison: 07/21/2019 Bilateral Screening Mammogram, [facility]. Tissue Density: The breasts are heterogeneously dense, which may obscure small masses. Findings: Analyzed By CAD. Possible new 10 mm. In the posterior depth outer aspect likely corresponding to upper aspect of the right breast warrants further workup. Overall Assessment: Incomplete: need additional imaging evaluation, BI-RAD 0 Management: Diagnostic Mammogram of the right breast. Diagnostic Breast Ultrasound of the right breast. Right-sided breast diagnostic workup. Patient should continue monthly self-breast exams. A clinical breast exam by your physician is recommended on an annual basis. This exam should not preclude additional follow-up of suspicious palpable abnormalities. Note on Roma scores and lifetime risk: 1. A Roma score greater than 3% is considered moderate risk. If this is the case, consider specialist referral to assess eligibility for a risk reducing agent. 2. If overall lifetime risk for the development of breast cancer is 20% or higher, the patient may qualify for future screening with alternating mammogram and breast MRI. [facility], , 10/14/2024 9:52 AM. Electronically signed and approved by: Cristopher Pino M.D.
== END | disposition home or self-care (01) ==
LOC: RADMAMWWP 15:43
PROVIDERS: ATTEND Obstetrics & Gynecology
DX: Z12.31 Encounter for screening mammogram for malignant neoplasm of breast (principal); R92.333 Mammographic heterogeneous density, bilateral breasts; Z80.3 Family history of malignant neoplasm of breast
CPT/HCPCS: 77067

== ENCOUNTER → 2024-10-26 | Outpatient (CLI) | payer OTHER ==
--- NOTE | 2024-10-26 16:06 | USB ---
Reason for Exam: Additional evaluation requested from abnormal screening. Patient History: Menarche at age 16. First Full-Term at age 19. Perimenopausal. Maternal grandmother had breast cancer. Maternal aunt had breast cancer. Risk Values: Roma 5 year model risk: 0.6%. NCI Lifetime model risk: 6.1%. Technique: Method: Targeted. Prior Study Comparison: 07/21/2019 Bilateral Screening Mammogram, [facility]. 10/13/2024 Bilateral MG screening mammo w CAD, [facility]. Findings: The upper outer quadrant of the right breast, the axilla of the right breast and the retroareolar of the right breast were scanned. Technique utilized:US breast workup limited RT Image; Ultrasound imaging of: Area of concern, retroareolar region and axilla. Elongated hypoechoic structure without internal vascularity possibly focal ductal dilation is complicated cyst. Short-term follow-up in 6 months is recommended for stability. Overall Assessment: Probably benign, BI-RAD 3 Management: Diagnostic Breast Ultrasound of the left breast in 6 months. Diagnostic Mammogram of the right breast in 6 months. A clinical breast exam by your physician is recommended on an annual basis and results should be correlated with mammographic findings. This exam should not preclude additional follow-up of suspicious palpable abnormalities. Results were given to the patient verbally at the time of exam. [facility], , 10/26/2024 4:02 PM. Electronically signed and approved by: Sonny Michelle DO
--- NOTE | 2024-10-27 07:47 | MM ---
Reason for Exam: Additional evaluation requested from abnormal screening. Last screening mammogram was performed less than 1 month ago. Patient History: Menarche at age 16. First Full-Term at age 19. Perimenopausal. Maternal grandmother had breast cancer. Maternal aunt had breast cancer. Risk Values: Roma 5 year model risk: 0.6%. NCI Lifetime model risk: 6.1%. Tissue Density: Right: The breasts are heterogeneously dense, which may obscure small masses. Findings: Analyzed By CAD. Persistent focal asymmetry 8.0 cm nipple from the upper and the outer quadrant measuring up to 10 mm. Overall Assessment: Incomplete: need additional imaging evaluation, BI-RAD 0 Management: Diagnostic Breast Ultrasound of the right breast. Results were given to the patient verbally at the time of exam. Patient should continue monthly self-breast exams. A clinical breast exam by your physician is recommended on an annual basis. This exam should not preclude additional follow-up of suspicious palpable abnormalities. Note on Roma scores and lifetime risk: 1. A Roma score greater than 3% is considered moderate risk. If this is the case, consider specialist referral to assess eligibility for a risk reducing agent. 2. If overall lifetime risk for the development of breast cancer is 20% or higher, the patient may qualify for future screening with alternating mammogram and breast MRI. [facility], , 10/26/2024 3:30 PM. Electronically signed and approved by: Sonny Michelle DO
== END | disposition home or self-care (01) ==
LOC: RADMAMWWP 14:52
PROVIDERS: ATTEND Obstetrics & Gynecology
DX: R92.2 Inconclusive mammogram (principal); R92.333 Mammographic heterogeneous density, bilateral breasts; R92.8 Other abnormal and inconclusive findings on diagnostic imaging of breast; Z80.3 Family history of malignant neoplasm of breast
CPT/HCPCS: 77065; 76642; G0279; 77061